=== PATIENT | male | born 1980 | race Caucasian/White ===

== ENCOUNTER 2017-12-20 15:32 | Inpatient (IN) | payer BC, OTHER ==
--- OUTSIDE RECORDS SUMMARY | 2017-12-20 15:35 | XMS REPORT | Clinical Summary ---
:1980 Author Organization [facility] Address [address] [place] [address] Care Team Providers Name Role Phone Anitra Estrada [facility] CASING TIER-C Primary Care Provider Allergies Active Allergy Reactions Severity Noted Date Comments Baclofen 01/14/2016 Cephalosporins Anaphylaxis High 01/14/2016 Meperidine 01/14/2016 Hydromorphone 01/14/2016 Levofloxacin 01/14/2016 Morphine 01/14/2016 Promethazine 01/14/2016 Current Medications Prescription Sig. Disp. Refills Start Date End Date Status rosuvastatin Take 20 mg by Active (CRESTOR) 20 MG mouth daily. tablet lamoTRIgine Take 100 mg by Active (LaMICtal) 100 MG mouth daily. tablet escitalopram Take 20 mg by Active (LEXAPRO) 20 MG mouth daily. tablet zolpidem (AMBIEN) 10 Take 10 mg by Active mg tablet mouth nightly as needed for sleep. amLODIPine (NORVASC) Take 10 mg by Active 10 mg tablet mouth daily. pregabalin (LYRICA) Take 200 mg by Active 200 MG capsule mouth 3 (three) times a day. DOMPERIDONE, BULK, 1 tablet 3 Active MISC (three) times a day. febuxostat (ULORIC) Take 1 tablet 30 tablet 11 09/03/2017 Active 40 mg (40 mg total) 9 tabletIndications: by mouth Polyarticular gout, daily. Other secondary osteoarthritis of both feet, Renal insufficiency, Hyperuricemia oseltamivir (TAMIFLU) TAKE ONE 0 09/10/2017 Active 75 MG capsule CAPSULE BY MOUTH EVERY 12 HOURS FOR 5 DAYS zolpidem (AMBIEN) 10 Take 10 mg by 05/19/201 Discontinued mg tablet mouth nightly 7 as needed for sleep. loratadine (CLARITIN) Take 10 mg by Discontinued 10 mg tablet mouth nightly. 7 coenzyme Q10 100 mg Take 200 mg by Discontinued capsule mouth daily. 7 lamoTRIgine Take 100 mg by Discontinued (LaMICtal) 100 MG mouth nightly. 7 tablet escitalopram Take 20 mg by Discontinued (LEXAPRO) 20 MG mouth nightly. 7 tablet pregabalin (LYRICA) Take 150 mg by Discontinued 150 MG capsule mouth daily. 7 magnesium oxide Take 400 mg by Discontinued (MAG-OX) 400 mg mouth daily. 7 tablet omeprazole (PriLOSEC) Take 20 mg by Discontinued 20 MG capsule mouth daily. 7 simvastatin (ZOCOR) Take 20 mg by Discontinued 20 MG tablet mouth nightly. 7 fenofibrate 145 MG Take 145 mg by Discontinued tablet mouth nightly. 7 traMADol (ULTRAM) 50 Take 50 mg by Discontinued mg tablet mouth every 6 7 (six) hours as needed for moderate pain. diphenhydrAMINE Take 25 mg by Discontinued (BENADRYL) 25 mg mouth every 6 7 capsule (six) hours as needed for itching. diclofenac (VOLTAREN) Apply 2 g Discontinued 1 % gel topically 4 7 (four) times a day as needed. phenol 1.4 % Take 2 sprays Discontinued aerosol,spray by mouth every 7 4 (four) hours as needed. pancrelipase, Take 72,000 Discontinued qsuamk-exvbbisz-sodni units of 7 se, (CREON) lipase by 24,000-76,000 mouth 4 (four) -120,000 unit times a day. capsule,delayed release(DR/EC) capsule pregabalin (LYRICA) Take 300 mg by Discontinued 300 MG capsule mouth nightly. 7 sennosides-docusate Take 1 tablet Discontinued sodium (SENOKOT-S) by mouth 7 8.6-50 mg per tablet daily. acetaminophen Take 2 tablets 20 tablet 0 05/09/2016 Discontinued (TYLENOL) 325 MG (650 mg total) 7 tablet by mouth every 6 (six) hours as needed for moderate pain for up to 20 doses. amoxicillin-pot Take 1 tablet 0 06/21/2016 Discontinued clavulanate by mouth every 7 (AUGMENTIN) 875-125 12 (twelve) mg per tablet hours. amLODIPine (NORVASC) Take 10 mg by Discontinued 10 MG tablet mouth daily. 7 febuxostat (ULORIC) Take 40 mg by Discontinued 40 mg tablet mouth daily. 7 amitriptyline Take 0.5 15 tablet 0 01/05/2017 (ELAVIL) 25 MG tablet tablets (12.5 7 mg total) by mouth nightly for 30 days. febuxostat (ULORIC) Take 1 tablet 30 tablet 2 02/05/2017 40 mg (40 mg total) 7 tabletIndications: by mouth daily Hyperuricemia, Acute for 90 days. gout of multiple sites, unspecified cause febuxostat (ULORIC) Take 40 mg by Discontinued 40 mg tablet mouth daily. 7 febuxostat (ULORIC) Take 1 tablet 30 tablet 3 05/09/2017 Discontinued 40 mg tablet (40 mg total) 8 by mouth daily. Active Problems Problem Noted Date Abdominal pain, generalized 12/29/2016 Generalized abdominal pain 12/26/2016 Overview: Added automatically from request for surgery [id number] Polyarticular gout 06/29/2016 Hyperuricemia 06/29/2016 Renal insufficiency 06/29/2016 Recurrent pancreatitis 06/29/2016 Osteoarthritis of both feet 06/29/2016 Lumbar disc disease 06/29/2016 Abnormal SPEP 06/29/2016 Gout attack 05/09/2016 Acute pancreatitis 04/27/2016 Pancreatitis 01/20/2016 Last Assessment & Plan: He has had recurrent episodes since his childhood. He has positive mutations of the CFTR and SPINK1. No EtOH use, he is s/p cholecystectomy, no hypertriglyceridemia or hypercalcemia. MRI with no anatomic abnormalities or divisum, no PD irregularity. CT with no pancreatic calcifications, fluid collections, or atrophy. No suspicious medications. No evidence of chronic pancreatitis clinically or on imaging. Igg4 normal. He has no family members for counseling. Abdominal pain 01/15/2016 Encounters Date Type Specialty Care Team Description 12/11/2017 Office Visit Ophthalmology Ras Marr, Multiple myeloma, remission status unspecified (Primary Dx); Unspecified visual field defects 12/11/2017 Orders Only Ophthalmology Ras Marr MD 12/05/2017 Office Visit Gastroenterology Harriet, Gastroparesis (Primary Dx); DO Josette Incontinence of feces, unspecified fecal incontinence type 10/11/2017 Hospital Encounter Radiology Ras Marr, Unspecified visual field defects; Multiple myeloma, remission status unspecified; Diplopia; Exophthalmos 10/02/2017 Hospital Encounter Radiology Ras Marr MD 10/02/2017 Hospital Encounter Radiology Ras Marr MD 10/02/2017 Hospital Encounter Radiology Ras Marr MD 10/02/2017 Procedure Pass Radiology 10/02/2017 Procedure Pass Radiology 10/02/2017 Procedure Pass Radiology 10/02/2017 Ancillary Orders Radiology Ras Marr MD 09/27/2017 Lab Lab Ras Marr, Unspecified visual field defects; Multiple myeloma, remission status unspecified; Diplopia; Exophthalmos 09/27/2017 Office Visit Ophthalmology Ras Marr, Unspecified visual field defects (Primary Dx); Multiple myeloma, remission status unspecified; Diplopia; Exophthalmos; Partial optic atrophy of both eyes; Altitudinal hemianopia of left eye; Arcuate scotoma of both eyes 09/27/2017 Procedure Pass Radiology 09/27/2017 Documentation Ophthalmology Clara Stephens MD 09/19/2017 Office Visit Gastroenterology Harriet, Gastroparesis (Primary Dx); DO Josette Incontinence of feces, unspecified fecal incontinence type 09/03/2017 Office Visit Rheumatology Elba Parekh, Polyarticular gout ( Primary Dx); Other secondary osteoarthritis of both feet; Renal insufficiency; Hyperuricemia 09/02/2017 Refill Rheumatology Elba Parekh MD 06/13/2017 Office Visit Gastroenterology Harriet, Gastroparesis Josette, DO (Primary Dx) 05/09/2017 Office Visit Gastroenterology Harriet, Generalized abdominal pain (Primary Dx); DO Josette Gastroparesis; Other chronic pancreatitis; Constipation, unspecified constipation type 05/09/2017 Refill Rheumatology Lacey Salazar MA 02/05/2017 Orders Only Rheumatology Elba Parekh, Hyperuricemia (Primary Dx ); Acute gout of multiple sites, unspecified cause 01/18/2017 Telephone Gastroenterology Shala Morales, EMRE 01/01/2017 Procedure Pass Gastroenterology 01/01/2017 Procedure Pass Gastroenterology 12/31/2016 Orders Only Radiology Xander Aritaa 12/26/2016 Hospital Encounter General Internal Briana Elliott Abdominal pain, generalized (Primary Dx); - Medicine MD [facility] Generalized abdominal pain 01/05/2017 Demetrice Allred MD Patel, Amitkumar Natvarlal, MD 12/26/2016 Telephone Gastroenterology Shala Morales, RN after 12/19/2016 Social History Tobacco Use Types Packs/Day Years Used Date Never Smoker Smokeless Tobacco: Never Used Alcohol Use Drinks/Week oz/Week Comments No Sex Assigned at Date Recorded Not on file Last Filed Vital Signs Vital Sign Reading Time Taken Blood Pressure 86/55 12/05/2017 1:14 PM CDT Pulse 73 12/05/2017 1:14 PM CDT Temperature 37.2 C (98.9 F) 09/03/2017 4:37 PM [employer] Respiratory Rate 17 01/05/2017 11:41 AM CDT Oxygen Saturation 94% 09/03/2017 4:37 PM [employer] Inhaled Oxygen Concentration - - Weight 97.5 kg (215 lb) 12/11/2017 7:50 AM CDT Height 162.6 cm (5' 4") 12/11/2017 7:50 AM CDT Body Mass Index 36.9 12/11/2017 7:50 AM CDT Plan of Treatment Date Type Specialty Care Team Description 03/14/2018 Office Visit Ophthalmology Ras Marr MD [address] [facility] [address] [place] [address] 04/26/2018 Office Visit Rheumatology Elba Parekh MD [address] [facility] [address] [place] [address] 06/05/2018 Office Visit Gastroenterology Josette Larios DO [address] [facility] [address] [place] [address] [phone] Health Maintenance Due Date Last Done Comments INFLUENZA VACCINE 03/20/2018 Procedures Procedure Name Priority Date/Time Associated Diagnosis Comments AUTOMATED VISUAL Routine 12/11/2017 8:45 AM Multiple myeloma, Results for this FIELD, EXTENDED - CDT remission status procedure are in OU - BOTH EYES unspecified the results section. OCT, OPTIC NERVE - Routine 12/11/2017 8:45 AM Multiple myeloma, OU - BOTH EYES CDT remission status unspecified OCT, OPTIC NERVE - Routine 09/27/2017 8:19 AM Unspecified visual Results for this OU - BOTH EYES [employer] field defects procedure are in Multiple myeloma, the results remission status section. 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 The analytical performance characteristics of this test have been determined by [facility]. This test should not be used for diagnosis without confirmation by other medically established means. Specimen Performing Laboratory [facility] Narrative FASTING: UNKNOWN Automated Visual Field, Extended - OU (12/11/2017 8:45 AM) Narrative Right Eye Threshold was 24-2. Strategy was RISA. Left Eye Threshold was 24-2. OCT, Optic Nerve - OU (12/11/2017 8:45 AM)MRI Brain & Orbit W Wo Contrast ( 10/11/2017 2:20 PM) Specimen Performing Laboratory [address] [address] Narrative EXAMINATION: MRI BRAIN & ORBIT W WO CONTRAST CLINICAL HISTORY: H53.40 Unspecified visual field defects, C90.00 Multiple myeloma not having achieved remission, bilateral exotropia. Anisocoria acute onset. Focus on orbit and EOMs COMPARISON:MRI brain 08/21/2017 TECHNIQUE: Multiplanar and multisequence MRI imaging of the brain and orbits was obtained with and without contrast. FINDINGS: MRI BRAIN: No evidence of acute intracranial hemorrhage, mass, mass effect, acute infarct or midline shift. Ventricles and sulci are normal in appearance for patient's age. Minimal scattered white matter FLAIR signal hyperintensities, commonly representing chronic microvascular ischemic change. No abnormal intracranial enhancement. Basal cisterns are clear. Major intracranial flow voids are maintained. Mild scattered paranasal sinus mucosal thickening. Sagittal T1 images shows no midline mass lesion. The craniocervical junction is intact. MRI ORBITS: High resolution images of the orbits demonstrate exophthalmus bilaterally. No orbital mass. No abnormal signal of the optic chiasm or prechiasmatic optic nerves and no abnormal enhancement. The globes are normal in appearance. Extraocular muscles are normal in appearance. IMPRESSION: 1. No acute intracranial abnormality. 2. Bilateral exophthalmus. Otherwise unremarkable appearance of the orbits. [id number] Procedure Note Hm Interface, Radiology Results Incoming - 10/11/2017 2:51 PM BUSINESS [employer]IT [employer] EXAMINATION: MRI BRAIN & ORBIT W WO CONTRAST CLINICAL HISTORY: H53.40 Unspecified visual field defects, C90.00 Multiple myeloma not having achieved remission, bilateral exotropia. Anisocoria acute onset. Focus on orbit and EOMs COMPARISON: MRI brain 08/21/2017 TECHNIQUE: Multiplanar and multisequence MRI imaging of the brain and orbits was obtained with and without contrast. FINDINGS: MRI BRAIN: No evidence of acute intracranial hemorrhage, mass, mass effect, acute infarct or midline shift. Ventricles and sulci are normal in appearance for patient's age. Minimal scattered white matter FLAIR signal hyperintensities, commonly representing chronic microvascular ischemic change. No abnormal intracranial enhancement. Basal cisterns are clear. Major intracranial flow voids are maintained. Mild scattered paranasal sinus mucosal thickening. Sagittal T1 images shows no midline mass lesion. The craniocervical junction is intact. MRI ORBITS: High resolution images of the orbits demonstrate exophthalmus bilaterally. No orbital mass. No abnormal signal of the optic chiasm or prechiasmatic optic nerves and no abnormal enhancement. The globes are normal in appearance. Extraocular muscles are normal in appearance. IMPRESSION: 1. No acute intracranial abnormality. 2. Bilateral exophthalmus. Otherwise unremarkable appearance of the orbits. [id number] Thyroperoxidase antibody (09/27/2017 9:18 AM) Component Value Ref Range Thyroperoxidase Ab <1 <9 IU/mL Specimen Performing Laboratory [facility] Acetylcholine receptor blocking Ab (09/27/2017 9:18 AM) Component Value Ref Range Acetylcholine receptor blocking Ab <15 <15 % of inhibition Specimen Performing Laboratory [facility] Acetylcholine receptor modulating Ab (09/27/2017 9:18 AM) Component Value Ref Range Acetylcholine receptor modulating <1 % binding inhib Ab Comment: Reference Range: < 32% BINDING INHIBITION This test was developed and its analytical performance characteristics have been determined by [facility]. It has not been cleared or approved by FDA. This assay has been validated pursuant to the CLIA regulations and is used for clinical purposes. Specimen Performing Laboratory [facility] Acetylcholine receptor binding Ab (09/27/2017 9:18 AM) Component Value Ref Range Acetylcholine receptor binding Ab <0.30 nmol/L Comment: Reference Ranges for Acetylcholine Receptor Binding Antibody: Negative: < or=0.30 nmol/L Equivocal:0.31-0.49 nmol/L Positive: > or=0.50 nmol/L Specimen Performing Laboratory [facility] Thyroid stimulating immunoglobulin (09/27/2017 9:18 AM) Component Value Ref Range Thyroid stimulating immunoglobulin <89 <140 % baseline Comment: Thyroid stimulating immunoglobulins (TSI) can engage the TSH receptors resulting in hyperthyroidism in Graves' disease patients. TSI levels can be useful in monitoring the clinical outcome of Graves' disease as well as assessing the potential for hyperthyroidism from maternal- transfer. TSI results greater than or equal to (>=) 140% of the Reference Control are considered positive. NOTE: A serum TSH level greater than 350 micro-International Units/mL can interfere with the TSI bioassay and potentially give false positive results. Patients who are and are suspected of having hyperthyroidism should have both a TSI and human Chorionic Gonadotropin (hCG) tests measured. A serum hCG level greater than 40,625 mIU/mL can interfere with the TSI bioassay and may give false negative results. In these patients it is recommended that a second TSI is obtained when the hCG concentration falls below 40,625 mIU/mL (usually after approximately 20-weeks gestation). Specimen Performing Laboratory [facility] BUN level (09/27/2017 9:18 AM) Component Value Ref Range BUN, whole blood 25 7 - 25 mg/dL Specimen Performing Laboratory [facility] T3, free (09/27/2017 9:18 AM) Component Value Ref Range T3, free 3.7 2.3 - 4.2 pg/mL Specimen Performing Laboratory [facility] Thyroid stimulating hormone (09/27/2017 9:18 AM) Component Value Ref Range TSH 2.83 0.40 - 4.50 mIU/L Specimen Performing Laboratory [facility] T4, free (09/27/2017 9:18 AM) Component Value Ref Range T4, free 1.5 0.8 - 1.8 ng/dL Specimen Performing Laboratory [facility] Creatinine level (09/27/2017 9:18 AM) Component Value Ref Range Creatinine 1.11 0.60 - 1.35 mg/dL EGFR Non-Afr. Niuean 84 > OR=60 mL/min/1.73m2 EGFR 98 > OR=60 mL/min/1.73m2 Specimen Performing Laboratory [facility] OCT, Optic Nerve - OU (09/27/2017 8:19 AM) Narrative Right Eye Reliability was good. Temporal thickness was normal. Superior thickness was normal. Nasal thickness was normal. Inferior thickness was normal. Left Eye Reliability was good. Temporal thickness was normal. Superior thickness was normal. Nasal thickness was normal. Inferior thickness was normal. Notes G 79 G 74 Automated Visual Field, Extended - OU (09/27/2017 8:19 AM) Narrative Right Eye Threshold was 24-2. Strategy was RISA. Reliability was good. -8.09. Findings include superior arcuate defect. Left Eye Threshold was 24-2. Strategy was RISA. Reliability was good. -13.21. Findings include superior altitudinal defect, inferior arcuate defect. Uric acid level (09/19/2017 11:15 AM) Component Value Ref Range Uric acid 5.3 4.0 - 8.0 mg/dL Comment: Therapeutic target for gout patients: <6.0 mg/dL Specimen Performing Laboratory [facility] Narrative FASTING:YES FASTING: YES Comprehensive metabolic panel (09/19/2017 11:15 AM)Only the most recent of3 resultswithin the time period is included. Component Value Ref Range Glucose 82 65 - 99 mg/dL Comment: Fasting reference interval BUN, whole blood 27 (H) 7 - 25 mg/dL Creatinine 1.41 (H) 0.60 - 1.35 mg/dL EGFR Non-Afr. Niuean 63 > OR=60 mL/min/1.73m2 EGFR 73 > OR=60 mL/min/1.73m2 BUN/creatinine ratio 19 6 - 22 (calc) Sodium 138 135 - 146 mmol/L Potassium 4.8 3.5 - 5.3 mmol/L Chloride 99 98 - 110 mmol/L CO2 33 (H) 20 - 31 mmol/L Calcium 10.1 8.6 - 10.3 mg/dL Protein 7.6 6.1 - 8.1 g/dL Albumin, S 4.4 3.6 - 5.1 g/dL Globulin, total 3.2 1.9 - 3.7 g/dL (calc) Albumin/globulin ratio 1.4 1.0 - 2.5 (calc) Total bilirubin 0.5 0.2 - 1.2 mg/dL Alkaline phosphatase 70 40 - 115 U/L AST 28 10 - 40 U/L ALT 40 9 - 46 U/L Specimen Performing Laboratory [facility] Narrative FASTING:YES FASTING: YES MRI Head External Study (08/21/2017 7:31 PM)Only the most recent of3 resultswithin the time period is included. Specimen Performing Laboratory [facility] [address] [place] [id number] Narrative This exam was not acquired at a Religious facility and has not been interpreted by a Religious Provider.The exam was imported into our imaging system for comparisons purposes. XR Abdomen 1 Vw (01/04/2017 11:34 AM)Only the most recent of2 resultswithin the time period is included. Specimen Performing Laboratory [facility] [address] [place] [address] Narrative EXAMINATION:XR ABDOMEN 1 VW CLINICAL HISTORY:Bowel ileus COMPARISON:Abdominal radiograph 12/31/2016. IMPRESSION:Interval improvement of gaseous distention of small bowel loops. There is mild continued gaseous distention of the transverse colon. No evidence of pneumoperitoneum. The lung bases have stable interstitial opacities. Patient has mild scoliotic deformity of the lumbar spine. [id number] Procedure Note Interface, Radiology Results Incoming - 01/04/2017 12:04 PM CDT EXAMINATION: XR ABDOMEN 1 VW CLINICAL HISTORY: Bowel ileus COMPARISON: Abdominal radiograph 12/31/2016. IMPRESSION: Interval improvement of gaseous distention of small bowel loops. There is mild continued gaseous distention of the transverse colon. No evidence of pneumoperitoneum. The lung bases have stable interstitial opacities. Patient has mild scoliotic deformity of the lumbar spine. [id number] Salmonella/shigella culture (01/03/2017 2:39 PM) Component Value Ref Range Salmonella/shigella culture isolate No Aeromonas isolated Comment: Specimen Information Specimen Source: Stool Specimen Site: Nonpreserved Specimen Performing Laboratory [facility] [address] [place] [address] Gastrointestinal panel (01/03/2017 2:39 PM) Component Value Ref Range Gastrointestinal panel Negative for all pathogens tested: Negative for Salmonella Negative for Campylobacter Negative for Diarrheagenic E coli/Shigella Negative for Shiga-like toxin-producing E coli Negative for Plesiomonas shigelloides Negative for Yersinia enterocolitica Negative for Vibrio species Negative for Clostridium difficile (Toxin A/B) Negative for Cryptosporidium Negative for Giardia lamblia Negative for Cyclospora cayeteanensis Negative for Entamoeba histolytica Negative for Adenovirus F 40/41 Negative for Astrovirus Negative for Norovirus GI/GII Negative for Rotavirus A Negative for Sapovirus Negative for Clostridium difficile toxin Negative for E coli 0157 This real-time PCR assay detects the presence of nucleic acids (RNA or DNA) for the gastrointestinal pathogens listed. A result of "Not-detected" does not exclude the possibility of the presence of one or more pathogens at concentrations less than the detectable limits of the assay. Comment: Specimen Information Specimen Source: Stool Specimen Site: Nonpreserved Specimen Performing Laboratory [facility] [address] [place] [id number] NM Gastric Emptying (01/03/2017 12:30 PM) Specimen Performing Laboratory [facility] [address] [place] [id number] Narrative Procedure:NM GASTRIC EMPTYING Clinical History:Nausea vomiting Technique: 0.8 millicuries of [id number] colloid were mixed with an egg and cooked. The egg was fed to the patient and dynamic imaging of the abdomen in the anterior and posterior projections was performed for 90 minutes. Quantification of gastric emptying was performed using the geometric mean of the anterior and posterior projections. Delayed imaging at 4 hours was also performed. Findings: 1st 90 minutes (supine position):Gastric emptying half kfhb=517 minutes ( normal is <100 minutes). 4 hour delayed imaging:Gastric retention=40% (normal is <10%) Impression: Markedly delayed gastric emptying. [id number] Procedure Note Interface, Radiology Results Incoming - 01/03/2017 4:28 PM CDT Procedure: NM GASTRIC EMPTYING Clinical History: Nausea vomiting Technique: 0.8 millicuries of [id number] colloid were mixed with an egg and cooked. The egg was fed to the patient and dynamic imaging of the abdomen in the anterior and posterior projections was performed for 90 minutes. Quantification of gastric emptying was performed using the geometric mean of the anterior and posterior projections. Delayed imaging at 4 hours was also performed. Findings: 1st 90 minutes (supine position): Gastric emptying half bcmj=914 minutes ( normal is <100 minutes). 4 hour delayed imaging: Gastric retention=40% (normal is <10%) Impression: Markedly delayed gastric emptying. [id number] CBC with platelet and differential (01/03/2017 5:45 AM)Only the most recent of6 resultswithin the time period is included. Component Value Ref Range WBC 4.38 (L) 4.50 - 11.00 k/uL RBC 4.98 4.40 - 6.00 m/uL HGB 14.2 14.0 - 18.0 g/dL HCT 45.8 41.0 - 51.0 % MCV 92.0 82.0 - 100.0 fL MCH 28.5 27.0 - 34.0 pg MCHC 31.0 31.0 - 37.0 g/dL RDW - SD 46.8 37.0 - 55.0 fL MPV 11.7 8.8 - 13.2 fL Platelet count 239 150 - 400 k/uL Nucleated RBC 0.00 /100 WBC Neutrophils 40.5 39.0 - 69.0 % Lymphocytes 43.2 25.0 - 45.0 % Monocytes 8.4 0.0 - 10.0 % Eosinophils 6.6 (H) 0.0 - 5.0 % Basophils 1.1 (H) 0.0 - 1.0 % Immature granulocytes 0.2Comment: "Immature granulocytes" 0.0 - 1.0 % (promyelocytes, myelocytes, metamyelocytes) Specimen Performing Laboratory [facility] DEPARTMENT OF PATHOLOGY AND GENOMIC MEDICINE [address] [place] [id number] Estimated GFR (01/03/2017 4:00 AM)Only the most recent of7 resultswithin the time period is included. Component Value Ref Range GFR Non Af Amer 57 (A) mL/min/1.73 m2 GFR Af Amer 69 mL/min/1.73 m2 Comment: Chronic kidney disease: <60 mL/min/1.73m2 Kidney failure: <15 mL/min/1.73m2 The estimated GFR is calculated from the IDMS-traceable Modification of Diet in Renal Disease Equation. The accuracy of the calculation is poor when the creatinine is normal. Calculated values >90 mL/min/1.73m2 are not reported. This equation has not been validated in children (<18 years), women, the elderly (>70 years), or ethnic groups other than Caucasians and Americans. Specimen Performing Laboratory Plasma specimen [facility] OF [facility] AND [facility] [address] [place] [id number] Magnesium level (01/03/2017 4:00 AM)Only the most recent of2 resultswithin the time period is included. Component Value Ref Range Magnesium 1.6 1.6 - 2.6 mg/dL Specimen Performing Laboratory Plasma specimen [facility] AND [facility] [address] [place] [phone] Basic metabolic panel (01/03/2017 4:00 AM)Only the most recent of5 resultswithin the time period is included. Component Value Ref Range Sodium 141 135 - 148 mEq/L Potassium 4.2 3.5 - 5.0 mEq/L Chloride 102 98 - 112 mEq/L CO2 24 24 - 31 mEq/L Anion gap 15 7 - 15 mEq/L Comment: Starting from November , anion gap calculation no longer incorporates potassium. Please note the change. BUN 6 6 - 20 mg/dL Creatinine 1.4 (H) 0.7 - 1.2 mg/dL Glucose 68 65 - 99 mg/dL Calcium 9.1 8.3 - 10.2 mg/dL Specimen Performing Laboratory Plasma specimen [facility] AND [facility] [address] [place] [address] Potassium level (01/02/2017 9:48 AM)Only the most recent of2 resultswithin the time period is included. Component Value Ref Range Potassium 4.3 3.5 - 5.0 mEq/L Specimen Performing Laboratory Plasma specimen [facility] PATHOLOG[facility] AND [facility] [address] [place] [address] Lipase level (12/29/2016 12:41 AM)Only the most recent of3 resultswithin the time period is included. Component Value Ref Range Lipase 28 13 - 60 U/L Specimen Performing Laboratory Plasma specimen [facility] AND [facility] [address] [place] [address] Amylase level (12/29/2016 12:41 AM)Only the most recent of3 resultswithin the time period is included. Component Value Ref Range Amylase 27 13 - 73 U/L Specimen Performing Laboratory Plasma specimen [facility] DEPARTMENT OF PATHOLOGY AND [address] [address] US Abdominal Doppler (12/28/2016 8:00 PM) Specimen Performing Laboratory [facility] [address] [place] [address] Narrative EXAMINATION:US ABDOMINAL DOPPLER CLINICAL HISTORY:Abdominal Pain with Cramps COMPARISON:None. TECHNIQUE: Glover scale, color Doppler and spectral waveform analysis of the hepatic and upper abdominal vasculature. IMPRESSION: PORTAL VEIN:Main portal vein measures 11 mm, with velocity of 13 cm/sec. Main, right, and left portal veins are patent with hepatopetal flow. HEPATIC VEINS:The middle, right and left hepatic veins are patent and demonstrate acceptable waveforms. HEPATIC ARTERIES:The proper, right, and left hepatic arteries are identified with appropriate waveforms. INFERIOR VENA CAVA: Patent. SUPERIOR MESENTERIC VEIN: Patent. SPLENIC ARTERY AND VEIN:Splenic artery and vein are identified and are patent. [id number] Procedure Note Interface, Radiology Results Incoming - 12/28/2016 8:56 PM CDT EXAMINATION: US ABDOMINAL DOPPLER CLINICAL HISTORY: Abdominal Pain with Cramps COMPARISON: None. TECHNIQUE: Glover scale, color Doppler and spectral waveform analysis of the hepatic and upper abdominal vasculature. IMPRESSION: PORTAL VEIN: Main portal vein measures 11 mm, with velocity of 13 cm/sec. Main, right, and left portal veins are patent with hepatopetal flow. HEPATIC VEINS: The middle, right and left hepatic veins are patent and demonstrate acceptable waveforms. HEPATIC ARTERIES: The proper, right, and left hepatic arteries are identified with appropriate waveforms. INFERIOR VENA CAVA: Patent. SUPERIOR MESENTERIC VEIN: Patent. SPLENIC ARTERY AND VEIN: Splenic artery and vein are identified and are patent. [id number] US Abdomen Complete (12/28/2016 7:20 PM) Specimen Performing Laboratory [facility] [address] [place] [id number] Narrative EXAM: US ABDOMEN COMPLETE CLINICAL DATA:ABDOMINAL PAIN COMPARISON: CT abdomen December 26, 2016 FINDINGS: A complete abdominal ultrasound was performed. LIVER: The liver is echogenic from steatosis without focal lesions or signs of intrahepatic biliary dilation. GALBLADDER/CBD:The gallbladder is absent. The common bile duct is normal in diameter at 4.9 mm PORTAL VEIN: .The main portal vein is patent with color Doppler flow. RETROPERITONEUM:The visualized pancreas, abdominal aorta, and IVC are unremarkable SPLEEN: The spleen is normal. KIDNEYS:The kidneys are normal in size and echogenicity without stones or hydronephrosis. OTHER: There is no ascites. There is no pleural effusion. IMPRESSION: No acute sonographic abnormality. [id number] Procedure Note [facility], Radiology Results Incoming - 12/29/2016 12:42 AM CDT EXAM: US ABDOMEN COMPLETE CLINICAL DATA: ABDOMINAL PAIN COMPARISON: CT abdomen December 26, 2016 FINDINGS: A complete abdominal ultrasound was performed. LIVER: The liver is echogenic from steatosis without focal lesions or signs of intrahepatic biliary dilation. GALBLADDER/CBD: The gallbladder is absent. The common bile duct is normal in diameter at 4.9 mm PORTAL VEIN: .The main portal vein is patent with color Doppler flow. RETROPERITONEUM: The visualized pancreas, abdominal aorta, and IVC are unremarkable SPLEEN: The spleen is normal. KIDNEYS: The kidneys are normal in size and echogenicity without stones or hydronephrosis. OTHER: There is no ascites. There is no pleural effusion. IMPRESSION: No acute sonographic abnormality. [id number] C difficile toxin (12/27/2016 3:47 PM) Component Value Ref Range Clostridium difficile toxin No Clostridium difficle toxin present Comment: Specimen Information Specimen Source: Stool Specimen Site: Nonpreserved Specimen Performing Laboratory Stool - Nonpreserved [facility] [address] [place] [id number] POC glucose (12/27/2016 7:25 AM) Component Value Ref Range POC glucose 122 (H) 65 - 99 mg/dL Comment: [facility] Notified RN Meter ID: [id number] Scaffolder: Michael Chaney Specimen Performing Laboratory [facility] [address] [place] [id number] Urinalysis screen and microscopy, with reflex to culture (12/26/2016 5:48 PM) Component Value Ref Range Specimen site Random void Color, UA Yellow Appearance, UA Clear Specific gravity, UA 1.015 1.001 - 1.035 pH, UA 7.0 5.0 - 8.5 Protein, UA Negative Negative Glucose, UA Negative Negative Ketones, UA Negative Negative Bilirubin, UA Negative Negative Blood, UA Negative Negative Nitrite, UA Negative Negative Urobilinogen, UA <2.0 <2.0 Leukocyte esterase, UA Negative Negative Epithelial cells, UA <1 /HPF WBC, UA None seen 0 - 1 /HPF RBC, UA <1 0 - 1 /HPF Bacteria, UA None seen None seen Yeast, UA None seen Yeast with pseudohyphae, UA None seen Specimen Performing Laboratory Urine [facility] OF PATHOLOGY AND GENOMIC MEDICINE, [place] [address] [facility]. [address] [place] [address] Urine culture (12/26/2016 5:48 PM) Component Value Ref Range Urine culture SEE COMMENTComment: Bacteriuria screen negative. Specimen Performing Laboratory [facility] [address] [place] [id number] Abdomen Pelvis Wo Contrast (12/26/2016 5:35 PM) Specimen Performing Laboratory [facility] [address] [place] [address] Narrative EXAMINATION:CT ABDOMEN PELVIS WO CONTRAST CLINICAL HISTORY:generalized abdominal painn v since yesterday Hx pancreatitisdiverticulitsbowel resectionCKDlast crea Jun 2016 -- 48 TECHNIQUE:Multiple axial CT images of the abdomen and pelvis are obtained without the use of intravenous contrast. Coronal and sagittal 3-D reconstructions are obtained. CT scans are performed using radiation dose reduction techniques. Technical factors are evaluated and adjusted to ensure appropriate moderation of exposure.Automated dose management technology is applied to adjust radiation exposure while achieving a diagnostic quality image. COMPARISON:05/02/2016 FINDINGS: Abdomen: The evaluation of the solid organs is limited without the use of intravenous contrast. The visualized lower lung zones demonstrates dependent atelectasis at the lower lung bases. The gallbladder is not identified. The liver has a fatty appearance. There are no liver masses present.. The CT appearance of thespleen, pancreas and adrenal glands is unremarkable . The abdominal aorta has no aneurysmal dilatation. There is no retroperitoneal adenopathy. The kidneys do not have any stones or hydronephrosis. CT Pelvis: Stomach does not demonstrate any wall thickening. There is no evidence of any bowel obstruction nor any dilated loops of bowel. Extensive colonic fecal retention is present. There is no free fluid seen within the abdomen and pelvis. The bladder does not demonstrate any masses. There is no evidence of any inguinal hernia. The appendix is not clearly identified. There is no inflammatory change seen in the right lower quadrant. Colon does not demonstrate any inflammatory change. Moderate colonic fecal retention is present. IMPRESSION: 1. The pancreas does not demonstrate any inflammatory change. There are no masses seen on the noncontrast study. 2. There is no bowel obstruction nor any dilated loops of bowel. 3. Moderate colonic fecal retention is present. 4. The abdomen and pelvis do not demonstrate any masses. [facility]-[id number] Procedure Note Hm Interface, Radiology Results Incoming - 12/26/2016 5:46 PM CDT EXAMINATION: CT ABDOMEN PELVIS WO CONTRAST CLINICAL HISTORY: generalized abdominal pain n v since yesterday Hx pancreatitis diverticulits bowel resection CKD last crea Jun 2016 -- 1 48 TECHNIQUE: Multiple axial CT images of the abdomen and pelvis are obtained without the use of intravenous contrast. Coronal and sagittal 3-D reconstructions are obtained. CT scans are performed using radiation dose reduction techniques. Technical factors are evaluated and adjusted to ensure appropriate moderation of exposure. Automated dose management technology is applied to adjust radiation exposure while achieving a diagnostic quality image. COMPARISON: 05/02/2016 FINDINGS: Abdomen: The evaluation of the solid organs is limited without the use of intravenous contrast. The visualized lower lung zones demonstrates dependent atelectasis at the lower lung bases. The gallbladder is not identified. The liver has a fatty appearance. There are no liver masses present.. The CT appearance of the spleen, pancreas and adrenal glands is unremarkable . The abdominal aorta has no aneurysmal dilatation. There is no retroperitoneal adenopathy. The kidneys do not have any stones or hydronephrosis. CT Pelvis: Stomach does not demonstrate any wall thickening. There is no evidence of any bowel obstruction nor any dilated loops of bowel. Extensive colonic fecal retention is present. There is no free fluid seen within the abdomen and pelvis. The bladder does not demonstrate any masses. There is no evidence of any inguinal hernia. The appendix is not clearly identified. There is no inflammatory change seen in the right lower quadrant. Colon does not demonstrate any inflammatory change. Moderate colonic fecal retention is present. IMPRESSION: 1. The pancreas does not demonstrate any inflammatory change. There are no masses seen on the noncontrast study. 2. There is no bowel obstruction nor any dilated loops of bowel. 3. Moderate colonic fecal retention is present. 4. The abdomen and pelvis do not demonstrate any masses. [facility]-[id number] XR Chest 1 Vw (12/26/2016 3:20 PM) Specimen Performing Laboratory [facility] [address] [place] [address] Narrative EXAMINATION:XR CHEST 1 VW CLINICAL HISTORY:workup for fever COMPARISON:May 04, 2016 IMPRESSION: 1.Feeding tube and left-sided PICC catheter have been removed. 2.There has been increase in basal volume loss since a prior study. 3.The vessels are not congested. [id number] Procedure Note Interface, Radiology Results Incoming - 12/26/2016 3:56 PM CDT EXAMINATION: XR CHEST 1 VW CLINICAL HISTORY: workup for fever COMPARISON: May 04, 2016 IMPRESSION: 1.Feeding tube and left-sided PICC catheter have been removed. 2.There has been increase in basal volume loss since a prior study. 3.The vessels are not congested. [id number] Manual differential (12/26/2016 2:55 PM) Component Value Ref Range Manual differential PERFORMED Neutrophils 58.0 39.0 - 69.0 % Lymphocytes 30.0 25.0 - 45.0 % Monocytes 7.0 0.0 - 10.0 % Eosinophils 3.0 0.0 - 5.0 % Basophils 2.0 (H) 0.0 - 1.0 % Metamyelocytes 0 % Promyelocytes 0 % Platelet slide review Dary adequate Specimen Performing Laboratory [facility] OF PATHOLOGY [facility] GENOMIC MEDICINE, [address] [place] [address] Lactic acid level (12/26/2016 2:55 PM) Component Value Ref Range Lactic acid 1.8 0.5 - 2.2 mmol/L Specimen Performing Laboratory Blood [facility] [place] [address] after 12/19/2016 Insurance Payer Benefit Plan / Group Subscriber ID Type Phone Address [employer] xxxxxxxxxxxx PPO [employer] xxxxxxxxx HMO
[2017-12-20] MEDS ORDERED: NA CHLORIDE 0.9% 2,000 ML ONE (16:17)
--- NOTE | 2017-12-20 16:47 | RAD REPORT ---
EXAM DESCRIPTION: RAD - Chest Single View - 12/20/2017 4:37 pm CLINICAL HISTORY: Fever COMPARISON: 01/12/2016 FINDINGS: Portable technique limits examination quality. The lungs are grossly clear. The heart is mildly prominent in size. No displaced fractures. IMPRESSION: No acute intrathoracic process suspected.
[2017-12-20 16:58] LABS: Absolute Monocytes 0.5 K/uL (0.1-1.3); Absolute Neutrophil 6.1 K/uL (1.8-8.0); Basophils % 0.5 % (0-1.3); Eosinophils % 0.1 % (0-4.4); Hematocrit 39.1 % (39.6-49.0); Lymphocytes % 12.9 % (15.3-44.8); MCH 27.2 pg (27.0-35.0); MCV 84.3 fL (80-100); MPV 9.6 fL (7.6-11.3); Monocytes % 6.9 % (3.3-12.3); RBC Red Blood Cell Count 4.64 M/uL (4.33-5.43)
[2017-12-20 17:09] LABS: Protime INR 1.15
[2017-12-20 17:12] LABS: Potassium 4.5 mEq/L (3.6-5.0)
[2017-12-20 17:20] LABS: Albumin 3.9 g/dL (3.2-5.5); Bilirubin Direct 0.1 mg/dL (0-0.2); Bilirubin Total 0.4 mg/dL (0.3-1.2); C-Reactive Protein 88.2 mg/L (<10.0); Protein, Total 7.8 g/dL (6.0-8.3)
--- NOTE | 2017-12-20 18:03 | RAD REPORT ---
EXAM DESCRIPTION: CT - Abdomen Pelvis W Contrast - 12/20/2017 5:48 pm CLINICAL HISTORY: Abdominal pain, fever, hypotension, history of prior bowel resection, hernia repai r and appendectomy COMPARISON: CT imaging December 2015 TECHNIQUE: Biphasic, helical CT imaging of the abdomen and pelvis was performed following 100 ml non -ionic IV contrast. Oral contrast was given. All CT scans are performed using dose optimization technique as appropriate and may include automated exposure control or mA/KV adjustment according to patient size. FINDINGS: Minimal stranding in each posterior gutter. No focal mass, consolidation or pleural effusi on. No pericardial effusion. Fat infiltration pattern of the liver is noted. No focal liver lesion. No spleen or pancreatic acute finding. Gallbladder is absent. No biliary tree dilatation. Symmetric renal function is seen with no hydronephrosis or suspicious renal mass. No pyelonephritis o r acute renal parenchymal process. No urinary bladder wall thickening or mass. No gastric dilatation or gastric wall thickening. There is no large or small bowel dilatation. Mild d iverticulosis is present without diverticulitis. No free air, free fluid or inflammatory stranding. No mass or bulky lymphadenopathy. Postsurgical changes are noted to the anterior abdominal wall. The re is atrophy of the rectus musculature in the mid and upper abdominal wall. Small nonspecific peripa ncreatic and periportal lymph nodes are present. No abnormal aortoiliac chain lymphadenopathy. No adr enal abnormality. No suspicious bony findings. IMPRESSION: No obstruction, free air or surgically emergent finding. No bowel obstruction or focal bowel process seen. A few of the small bowel loops are prominent and a nonspecific enteritis is possible. No abnormality seen as a source for fever. Fatty infiltration of the liver.
[2017-12-20] MEDS ORDERED: METRONIDAZOLE 500mg IVPB 500 MG/100 ML BAG IV ONE (18:20)
[2017-12-20] MEDS ORDERED: CLINDAMYCIN 600MG/D5W 600 MG/50 ML BAG IV ONE (18:20)
[2017-12-20] MEDS ORDERED: FENTANYL CITR 100 MCG/2 ML ONE ×2 (18:20→20:27)
[2017-12-20] MEDS ORDERED: NA CHLORIDE 0.9% 1,000 ML ONE (18:21)
[2017-12-20 19:25] LABS: Urine Blood NEGATIVE (NEG); Urine Glucose NEGATIVE (NEG); Urine Protein 1+ (NEG); Urine Specific Gravity 1.015 (1.005-1.030); Urine pH 5.5 (5.0-7.0)
--- NOTE | 2017-12-20 19:42 | ER ---
Nurse's Notes [facility] Name: Jose G Perera Age: 37 yrs Sex: Male : 1980 Arrival Date: 12/20/2017 Time: 15:36 Bed 19 Private MD: Diagnosis: Sepsis, unspecified organism;Other and unspecified noninfective gastroenteritis and colitis Presentation: 12/20 15:50 Presenting complaint: Father states: yesterday, he was running a high temp, 102, hj tylenol and ibuprofen and it went down, came from urgent care and BP- 80/40;. Transition of care: patient was not received from another setting of care. Onset of symptoms was December 20, 2017. Initial Sepsis Screen: Does the patient meet any 2 criteria? No. Patient's initial sepsis screen is negative. Does the patient have a suspected source of infection? No. Patient's initial sepsis screen is negative. Care prior to arrival: None. 15:50 Method Of Arrival: Ambulatory hj 15:50 Acuity: MANISHA 3 hj 15:50 Acuity: MANISHA 2 iw Triage Assessment: 15:53 General: Appears in no apparent distress. uncomfortable, Behavior is calm, cooperative, hj appropriate for age. Pain: Complains of pain in abdomen. Historical: - Allergies: 15:53 BACLOFEN; hj 15:53 CEPHALOSPORINS; hj 15:53 Demerol; hj 15:53 Dilaudid; hj 15:53 Levaquin; hj 15:53 Morphine; hj 22:21 Phenergan; jd3 - Home Meds: 15:53 gout metication [Active]; rosuvastatin 20 mg oral tab 1 tab once daily [Active]; Lyrica hj Oral 3 times per day [Active]; Ambien 10 mg Oral tab 1 tab once daily [Active]; Lamictal 100 mg Oral tab 1 tab once daily [Active]; Lexapro 20 mg Oral tab 1 tab once daily [Active]; - PMHx: 15:53 Hyperlipidemia; hj - PSHx: 15:53 Bowel resection; Hernia repair; Appendectomy; Hypospadius repair; Exploratory lap; hj - Immunization history:: Adult Immunizations up to date. - Social history:: Smoking status: Patient/guardian denies using tobacco, never smoked. Screenin:10 Abuse screen: Denies threats or abuse. Nutritional screening: No deficits noted. ae1 Tuberculosis screening: No symptoms or risk factors identified. Fall Risk None identified. Assessment: 18:10 Reassessment: Patient appears in no apparent distress at this time. Patient and/or ae1 family updated on plan of care and expected duration. Pain level reassessed. Patient states symptoms have improved. Pain: Complains of pain in abdomen. 19:33 Reassessment: Patient appears in no apparent distress at this time. Patient and/or jd3 family updated on plan of care and expected duration. Pain level reassessed. Patient is alert, oriented x 3, equal unlabored respirations, skin warm/dry/pink. Patient denies pain at this time. Patient states symptoms have improved. 21:30 Reassessment: Patient appears in no apparent distress at this time. Patient and/or jd3 family updated on plan of care and expected duration. Pain level reassessed. Patient is alert, oriented x 3, equal unlabored respirations, skin warm/dry/pink. 22:30 Reassessment: Patient appears in no apparent distress at this time. Patient and/or jd3 family updated on plan of care and expected duration. Pain level reassessed. Patient is alert, oriented x 3, equal unlabored respirations, skin warm/dry/pink. Vital Signs: 15:53 BP 80 / 47; Pulse 79; Resp 18; Temp 97.6(TE); Pulse Ox 96% on R/A; Weight 97.52 kg; hj Height 5 ft. 4 in. (162.56 cm); 16:51 BP 88 / 60; Pulse 74; Resp 15; Pulse Ox 96% on R/A; ae1 17:04 BP 106 / 62; Pulse 77; Resp 14; Temp 98.2(O); Pulse Ox 97% on R/A; ae1 18:08 BP 111 / 68; Pulse 82; Resp 12; Pulse Ox 96% on R/A; ae1 18:34 BP 114 / 65; Pulse 82; Resp 12; Temp 98.2(O); Pulse Ox 89% on R/A; ae1 19:01 BP 107 / 71; Pulse 79; Resp 12; Pulse Ox 99% on R/A; ae1 19:32 BP 111 / 69; Pulse 80; Resp 10; Pulse Ox 99% on 2 lpm NC; Pain 0/10; jd3 20:22 BP 114 / 74; Pulse 81; Resp 12 S; Temp 99.1(O); Pulse Ox 97% on 2 lpm NC; Pain 7/10; jd3 22:10 BP 128 / 76; Pulse 92; Resp 18 S; Pulse Ox 96% on 2 lpm NC; jd3 23:00 BP 113 / 77; Pulse 87; Resp 14 S; Pulse Ox 96% on 2 lpm NC; Pain 3/10; jd3 15:53 Body Mass Index 36.90 (97.52 kg, 162.56 cm) hj 18:34 Nasal cannula applied at 2 liters, O2 saturation up to 96% ae1 ED Course: 15:36 Patient arrived in ED. mr 15:51 Triage completed. hj 15:53 Arm band placed on right wrist. hj 15:56 Jorge Eugene, EMRE is Primary Nurse. ae1 15:57 [facility]C [facility] snw 15:57 Michele Gregorio MD is Attending Physician. snw 16:10 Radiology exam delayed due to lab results not completed at this time. (BUN/Creatinine). vr 16:20 Missed attempt(s): 20 gauge in left antecubital area. Bleeding controlled, band aid dh3 applied, catheter tip intact. 16:37 Chest Single View XRAY In Process Unspecified. EDMS 16:38 Radiology exam delayed due to lab results not completed at this time. (BUN/Creatinine). vr 16:52 Placed in gown. Bed in low position. Call light in reach. Side rails up X2. Adult w/ ae1 patient. lunchroom monitor on. Pulse ox on. NIBP on. Warm blanket given. Patient placed in Trendelenburg position. 17:06 Straight cath inserted, using sterile technique, Specimen obtained. 15 FR Returned Foul ae1 odor. Patient tolerated well. Inserted saline lock: 22 gauge in right forearm, using aseptic technique. Blood collected. Missed attempt(s): 20 gauge in right upper arm. Blood collected.. 17:[address] via stretcher. ae1 17:48 CT Abd/Pelvis - W/Contrast In Process Unspecified. EDMS 18:04 EKG done, by environmental services tech. reviewed by Stephanie DELGADO. at1 18:10 Patient moved back from CT. ae1 19:38 Sruthi Sanchez MD is Hospitalizing Provider. snw 20:51 Primary Nurse role handed off by Jorge Eugene, EMRE rg2 21:09 Nate Springer RN is Primary Nurse. jd3 22:00 Inserted 18 gauge 10 cm midline to right upper basilic vein on first attempt. Line with fc good blood return and flushes well. 22:11 No provider procedures requiring assistance completed. Patient admitted, IV remains in jd3 place. Administered Medications: 16:40 Drug: NS 0.9% (30 ml/kg) 30 ml/kg Route: IV; Rate: bolus; Site: right forearm; ae1 19:57 Follow up: Response: No adverse reaction; IV Status: Completed infusion; IV Intake: jd3 3000ml 18:25 Drug: fentaNYL (PF) 50 mcg Route: IVP; Site: right forearm; ae1 19:02 Follow up: Response: Pain is decreased ae1 18:28 Drug: Flagyl 500 mg Volume: 100 ml; Route: IVPB; Rate: 200 ml/hr; Infused Over: 30 ae1 mins; Site: right forearm; 19:58 Follow up: Response: No adverse reaction; IV Status: Completed infusion jd3 18:45 Drug: Clindamycin 600 mg Route: IVPB; Infused Over: 30 mins; Site: right forearm; ae1 19:58 Follow up: Response: No adverse reaction; IV Status: Completed infusion jd3 22:09 Drug: Tylenol 1000 mg Route: PO; jd3 22:40 Follow up: Response: No adverse reaction jd3 22:10 Drug: fentaNYL (PF) 25 mcg Route: IVP; Site: right antecubital; jd3 22:41 Follow up: Response: No adverse reaction jd3 22:32 Drug: Zofran 4 mg Route: IVP; Site: right antecubital; jd3 22:40 Follow up: Response: No adverse reaction jd3 Intake: 19:57 IV: 3000ml; Total: 3000ml. jd3 Outcome: 19:42 Decision to Hospitalize by Provider. snw 22:38 Admitted to Med/surg accompanied by nurse, via stretcher, room 208, with oxygen, with jd3 chart, Report called to Debi ANDREA 22:38 Condition: stable 22:38 Instructed on the need for admit, Demonstrated understanding of instructions. 22:57 Patient left the ED. mb3 Signatures: Dispatcher [employer] EDMS Sylvia Murcia rg2 Stephanie Garces, FINANCE VICE PRESIDENT-C FINANCE VICE PRESIDENT-Csnw Carina Yang mr Jackelin Rawls, RN RN Adrianne Kong, RN RN iw Calli Kwong Amanda, parks recreation coordinator EKG Tat1 Alfredo Krause RN RN hj Jorge Eugene RN RN ae1 Mercedes Jiménez 3 Nate Springer RN RN jThomas Willis RN RN mb3 Corrections: (The following items were deleted from the chart) 16:00 15:50 Acuity: MANISHA 3 hj iw 19:01 18:44 BP 156 / 95; Pulse 91bpm; Resp 16bpm; Pulse Ox 98% RA; ae1 ae1 23:01 19:32 BP 111 / 69; Pulse 80bpm; Resp 10bpm; Pulse Ox 99% RA; Pain 0/10; jd3 jd3 23:01 20:22 BP 114 / 74; Pulse 81bpm; Resp 12bpm; Spontaneous; Pulse Ox 97% RA; Temp 99.1F jd3 Oral; Pain 7/10; jd3
--- NOTE | 2017-12-20 19:43 | EDPHYS ---
Physician Documentation [facility] Name: Jose G Perera Age: 37 yrs Sex: Male : 1980 Arrival Date: 12/20/2017 Time: 15:36 Bed 19 Private MD: ED Physician Michele Gregorio HPI: 12/20 16:08 This 37 yrs old Male presents to ER via Ambulatory with complaints of Fever, snw Blood Pressure Problem. 16:08 The patient reports fever, that was measured at 102 degrees Fahrenheit. Onset: The snw symptoms/episode began/occurred suddenly, 3 day(s) ago, and became persistent. Modifying factors: there are no obvious modifying factors. Associated signs and symptoms: Pertinent positives: abdominal pain, diarrhea, x 1, Pertinent negatives: nausea, vomiting. The patient has experienced similar episodes in the past. The patient has been recently seen at an urgent care, today, for similar complaints, sent to ED for hypotension. Historical: - Allergies: 15:53 BACLOFEN; hj 15:53 CEPHALOSPORINS; hj 15:53 Demerol; hj 15:53 Dilaudid; hj 15:53 Levaquin; hj 15:53 Morphine; hj 22:21 Phenergan; jd3 - Home Meds: 15:53 gout metication [Active]; rosuvastatin 20 mg oral tab 1 tab once daily [Active]; Lyrica hj Oral 3 times per day [Active]; Ambien 10 mg Oral tab 1 tab once daily [Active]; Lamictal 100 mg Oral tab 1 tab once daily [Active]; Lexapro 20 mg Oral tab 1 tab once daily [Active]; - PMHx: 15:53 Hyperlipidemia; hj - PSHx: 15:53 Bowel resection; Hernia repair; Appendectomy; Hypospadius repair; Exploratory lap; hj - Immunization history:: Adult Immunizations up to date. - Social history:: Smoking status: Patient/guardian denies using tobacco, never smoked. ROS: 16:08 Eyes: Negative for injury, pain, redness, and discharge, ENT: Negative for injury, snw pain, and discharge, Neck: Negative for injury, pain, and swelling, Cardiovascular: Negative for chest pain, palpitations, and edema, Respiratory: Negative for shortness of breath, cough, wheezing, and pleuritic chest pain. 16:08 Back: Negative for injury and pain, : Negative for injury, bleeding, discharge, and swelling, MS/Extremity: Negative for injury and deformity, Skin: Negative for injury, rash, and discoloration, Neuro: Negative for headache, weakness, numbness, tingling, and seizure, Psych: Negative for depression, anxiety, suicide ideation, homicidal ideation, and hallucinations. 16:08 Constitutional: Positive for fever, malaise. 16:08 Abdomen/GI: Positive for abdominal pain, diarrhea, Negative for nausea and vomiting. Exam: 16:08 Head/Face: Normocephalic, atraumatic. Eyes: Pupils equal round and reactive to light, snw extra-ocular motions intact. Lids and lashes normal. Conjunctiva and sclera are non-icteric and not injected. Cornea within normal limits. Periorbital areas with no swelling, redness, or edema. ENT: Nares patent. No nasal discharge, no septal abnormalities noted. Tympanic membranes are normal and external auditory canals are clear. Oropharynx with no redness, swelling, or masses, exudates, or evidence of obstruction, uvula midline. Mucous membranes moist. Neck: Trachea midline, no thyromegaly or masses palpated, and no cervical lymphadenopathy. Supple, full range of motion without nuchal rigidity, or vertebral point tenderness. No Meningismus. Chest/axilla: Normal chest wall appearance and motion. Nontender with no deformity. No lesions are appreciated. Cardiovascular: Regular rate and rhythm with a normal S1 and S2. No gallops, murmurs, or rubs. Normal PMI, no JVD. No pulse deficits. Respiratory: Lungs have equal breath sounds bilaterally, clear to auscultation and percussion. No rales, rhonchi or wheezes noted. No increased work of breathing, no retractions or nasal flaring. Back: No spinal tenderness. No costovertebral tenderness. Full range of motion. Skin: Warm, dry with normal turgor. Normal color with no rashes, no lesions, and no evidence of cellulitis. Neuro: Awake and alert, GCS 15, oriented to person, place, time, and situation. Cranial nerves II-XII grossly intact. Motor strength 5/5 in all extremities. Sensory grossly intact. Cerebellar exam normal. Normal gait. Psych: Awake, alert, with orientation to person, place and time. Behavior, mood, and affect are within normal limits. 16:08 Abdomen/GI: Inspection: obese Bowel sounds: normal, Palpation: moderate abdominal tenderness, in the suprapubic area. 16:08 Musculoskeletal/extremity: Extremities: bilateral lower extremities in braces, ROM: no acute changes, Circulation is intact in all extremities. Sensation intact. Vital Signs: 15:53 BP 80 / 47; Pulse 79; Resp 18; Temp 97.6(TE); Pulse Ox 96% on R/A; Weight 97.52 kg; hj Height 5 ft. 4 in. (162.56 cm); 16:51 BP 88 / 60; Pulse 74; Resp 15; Pulse Ox 96% on R/A; ae1 17:04 BP 106 / 62; Pulse 77; Resp 14; Temp 98.2(O); Pulse Ox 97% on R/A; ae1 18:08 BP 111 / 68; Pulse 82; Resp 12; Pulse Ox 96% on R/A; ae1 18:34 BP 114 / 65; Pulse 82; Resp 12; Temp 98.2(O); Pulse Ox 89% on R/A; ae1 19:01 BP 107 / 71; Pulse 79; Resp 12; Pulse Ox 99% on R/A; ae1 19:32 BP 111 / 69; Pulse 80; Resp 10; Pulse Ox 99% on 2 lpm NC; Pain 0/10; jd3 20:22 BP 114 / 74; Pulse 81; Resp 12 S; Temp 99.1(O); Pulse Ox 97% on 2 lpm NC; Pain 7/10; jd3 22:10 BP 128 / 76; Pulse 92; Resp 18 S; Pulse Ox 96% on 2 lpm NC; jd3 23:00 BP 113 / 77; Pulse 87; Resp 14 S; Pulse Ox 96% on 2 lpm NC; Pain 3/10; jd3 15:53 Body Mass Index 36.90 (97.52 kg, 162.56 cm) hj 18:34 Nasal cannula applied at 2 liters, O2 saturation up to 96% ae1 MDM: 15:57 Patient medically screened. snw 19:42 Data reviewed: vital signs, nurses notes. Data interpreted: Pulse oximetry: on room air snw is 99 %. Interpretation: normal. Counseling: I had a detailed discussion with the patient and/or guardian regarding: the historical points, exam findings, and any diagnostic results supporting the discharge/admit diagnosis, lab results, radiology results, the need for further work-up and treatment in the hospital. Physician consultation: Sruthi Sanchez MD was called at 19:42, was contacted at 19:42, regarding admission, to the telemetry unit. in the emergency department to see patient at 19:42. 12/20 15:58 Order name: Urine Culture 12/20 15:58 Order name: T\T\S; Complete Time: 17:40 snw 12/20 15:58 Order name: Amylase, Serum; Complete Time: 17:33 snw 12/20 15:58 Order name: Basic Metabolic Panel; Complete Time: 17:33 snw 12/20 15:58 Order name: Blood Culture Adult (2) 12/20 15:58 Order name: BNP; Complete Time: 17:33 snw 12/20 15:58 Order name: C-Reactive Protein; Complete Time: 17:33 snw 12/20 15:58 Order name: CBC with Diff; Complete Time: 17:33 snw 12/20 15:58 Order name: Ckmb; Complete Time: 17:33 snw 12/20 15:58 Order name: CPK; Complete Time: 17:33 snw 12/20 15:58 Order name: Lactate; Complete Time: 17:33 snw 12/20 15:58 Order name: LFT's; Complete Time: 17:33 snw 12/20 15:58 Order name: Lipase; Complete Time: 17:33 snw 12/20 15:58 Order name: Procalcitonin; Complete Time: 17:33 snw 12/20 15:58 Order name: Protime (+inr); Complete Time: 17:33 snw 12/20 15:58 Order name: Ptt, Activated; Complete Time: 17:33 snw 12/20 15:58 Order name: Sed Rate; Complete Time: 17:33 snw 12/20 15:58 Order name: Troponin (emerg Dept Use Only); Complete Time: 17:33 snw 12/20 15:58 Order name: Chest Single View XRAY; Complete Time: 17:33 snw 12/20 16:08 Order name: CT Abd/Pelvis - W/Contrast; Complete Time: 18:05 snw 12/20 17:14 Order name: Urine Dipstick--Ancillary (enter results); Complete Time: 19:31 ag 12/20 17:44 Order name: ABO/RH no charge; Complete Time: 17:45 EDMS 12/20 18:10 Order name: Strep; Complete Time: 19:18 snw 12/20 18:16 Order name: Flu; Complete Time: 19:18 snw 12/20 19:04 Order name: Throat Culture EDMS 12/20 19:51 Order name: Basic Metabolic Panel EDMS 12/20 19:51 Order name: Basic Metabolic Panel EDMS 12/20 19:51 Order name: CBC with Automated Diff EDMS 12/20 19:51 Order name: CBC with Automated Diff EDMS 12/20 15:58 Order name: Cath; Complete Time: 17:04 snw 12/20 15:58 Order name: Accucheck; Complete Time: 17:37 snw 12/20 15:58 Order name: Cardiac monitoring; Complete Time: 16:50 snw 12/20 15:58 Order name: EKG - Nurse/Tech; Complete Time: 17:33 snw 12/20 15:58 Order name: IV Saline Lock - Large Bore; Complete Time: 16:50 snw 12/20 15:58 Order name: Labs collected and sent; Complete Time: 16:50 snw 12/20 15:58 Order name: O2 Per Protocol; Complete Time: 16:50 snw 12/20 15:58 Order name: O2 Sat Monitoring; Complete Time: 16:50 snw 12/20 15:58 Order name: Urine Dipstick-Ancillary (obtain specimen); Complete Time: 17:04 snw 12/20 17:38 Order name: EKG Electrocardiogram EDMS 12/20 19:51 Order name: Clear Liquid EDMS Administered Medications: 16:40 Drug: NS 0.9% (30 ml/kg) 30 ml/kg Route: IV; Rate: bolus; Site: right forearm; ae1 19:57 Follow up: Response: No adverse reaction; IV Status: Completed infusion; IV Intake: jd3 3000ml 18:25 Drug: fentaNYL (PF) 50 mcg Route: IVP; Site: right forearm; ae1 19:02 Follow up: Response: Pain is decreased ae1 18:28 Drug: Flagyl 500 mg Volume: 100 ml; Route: IVPB; Rate: 200 ml/hr; Infused Over: 30 ae1 mins; Site: right forearm; 19:58 Follow up: Response: No adverse reaction; IV Status: Completed infusion jd3 18:45 Drug: Clindamycin 600 mg Route: IVPB; Infused Over: 30 mins; Site: right forearm; ae1 19:58 Follow up: Response: No adverse reaction; IV Status: Completed infusion jd3 22:09 Drug: Tylenol 1000 mg Route: PO; jd3 22:40 Follow up: Response: No adverse reaction jd3 22:10 Drug: fentaNYL (PF) 25 mcg Route: IVP; Site: right antecubital; jd3 22:41 Follow up: Response: No adverse reaction jd3 22:32 Drug: Zofran 4 mg Route: IVP; Site: right antecubital; jd3 22:40 Follow up: Response: No adverse reaction jd3 Disposition: 12/21 06:48 Co-signature as Attending Physician, Michele Gregorio MD I agree with the assessment and wa plan of care. Disposition: 12/20/17 19:42 Hospitalization ordered by Sruthi Sanchez for Inpatient Admission. Preliminary diagnosis are Sepsis, unspecified organism, Other and unspecified noninfective gastroenteritis and colitis. - Bed requested for Telemetry/MedSurg (Inpatient). - Status is Inpatient Admission. mb3 - Condition is Stable. - Problem is an acute exacerbation. - Symptoms are unchanged. UTI on Admission? No Signatures: Dispatcher [employer] EDKS Sylvia Murcia rg2 Stephanie Garces, BOILER WASHER-C BOILER WASHER-Csnw Alfredo Krause RN RN hj Elliott, Andrea, RN RN ae1 Michele Gregorio MD MD wa Davies, Jonathon, RN RN jThomas Willis, RN RN mb3 Corrections: (The following items were deleted from the chart) 12/20 20:49 19:42 Hospitalization Ordered by Sruthi Sanchez MD for Inpatient Admission. Preliminary rg2 diagnosis is Sepsis, unspecified organism; Other and unspecified noninfective gastroenteritis and colitis. Bed requested for Telemetry/MedSurg (Inpatient). Status is Inpatient Admission. Condition is Stable. Problem is an acute exacerbation. Symptoms are unchanged. UTI on Admission? No. snw 22:57 20:49 12/20/2017 19:42 Hospitalization Ordered by Sruthi Sanchez MD for Inpatient mb3 Admission. Preliminary diagnosis is Sepsis, unspecified organism; Other and unspecified noninfective gastroenteritis and colitis. Bed requested for Telemetry/MedSurg (Inpatient). Status is Inpatient Admission. Condition is Stable. Problem is an acute exacerbation. Symptoms are unchanged. UTI on Admission? No. rg2
[2017-12-20] MEDS ORDERED: ACETAMINOPHEN 500 MG TAB PO PRN (19:47)
--- NOTE | 2017-12-20 21:45 | P.HP ---
Certification for Inpatient Patient admitted to: Inpatient With expected LOS: >2 Midnights Practitioner: I am a practitioner with admitting privileges, knowledge of patient current condition, hospital course, and medical plan of care. Services: Services provided to patient in accordance with Admission requirements found in Title 42 Section 412.3 of the Code of Federal Regulations Patient History Date of Service: 12/20/17 Reason for admission: sepsis History of Present Illness: Mr Perera is a 37 years old male mentally delay with history ulcerative colitis , who start about 3 days ago with fever and chills. He has had diarrhea as well. Today he was nauseated, and start with diffuse abdominal pain. In ER his BP was on the lower side, 80's/40's. lab work shows noraml WBC count, elevated procalcitonin, normal lactate. UA and CXR negative. CT abd/pelvis consistent with enteritis. Allergies Cephalosporins Allergy (Severe, Verified 07/27/15 04:26) Anaphylaxis baclofen Allergy (Intermediate, Verified 03/09/13 11:53) Itching/Hives/Rash hydromorphone HCl [From Dilaudid] Allergy (Intermediate, Verified 09/29/11 19:48 ) itching redness meperidine HCl [From Demerol] Allergy (Intermediate, Verified 09/29/11 19:47) Itching promethazine HCl [From Phenergan] Allergy (Intermediate, Verified 09/29/11 19:47 ) itching swelling levofloxacin [From Levaquin] Allergy (Unknown, Verified 09/29/11 19:48) itching redness morphine Allergy (Verified 01/29/12 14:08) Hives/Rash Home Medications: Escitalopram Oxalate [Lexapro] 20 mg PO BEDTIME 09/30/11 Lamotrigine [Lamictal] 100 mg PO BEDTIME 09/30/11 Lipase/Protease/Amylase [Creon 10 EC Capsule] 24,000 units PO QID 09/30/11 Telmisartan [Micardis] 20 mg PO BEDTIME 03/03/13 Diclofenac Sodium [Voltaren] 1 chantale TOP QID PRN 04/20/15 Fenofibrate [Tricor*] 145 mg PO BEDTIME 04/20/15 Fish Oil/Dha/Epa [Fish Oil 1,200 mg Fish Oil] 1 each PO DAILY 04/20/15 Loratadine [Claritin*] 10 mg PO BEDTIME 04/20/15 Omeprazole [Prilosec] 20 mg PO DAILY 04/20/15 Pregabalin [Lyrica] 150 mg PO BID 04/20/15 Simvastatin 20 mg PO BEDTIME 04/20/15 Ubidecarenone [Co Q-10] 200 mg PO DAILY 04/20/15 Zolpidem Tartrate [Ambien] 10 mg PO BEDTIME 04/20/15 traMADol HCL [Ultram*] 50 mg PO Q6H PRN #30 tab 08/11/15 Magnesium Oxide [Mag 0X*] 400 mg PO DAILY 01/09/16 Mesalamine [Lialda] 1 tab PO DAILY 01/09/16 - Past Medical/Surgical History Diabetic: No -: Diverticulitis -: Hypospadias -: Pancreatitis-chronic -: Mental Retardation (10 Year Old Level) -: ulcerative colitis -: neuropathy -: Appy -: Bowel resection -: Hernia repair -: Bilateral Eye Sx (Muscle Adjustment) -: exploratory lap -: hypospadius - Family History Mother Notes: Mom stated that "he is adopted" - Social History Smoking Status: Never smoker Alcohol use: No CD- Drugs: No Caffeine use: Yes Place of Residence: Home Review of Systems 10-point ROS is otherwise unremarkable Physical Examination - Physical Exam General: Alert, In no apparent distress HEENT: Atraumatic, PERRLA, Mucous membr. moist/pink, EOMI, Sclerae nonicteric Neck: Supple, 2+ carotid pulse no bruit, No LAD, Without JVD or thyroid abnormality Respiratory: Clear to auscultation bilaterally, Normal air movement Cardiovascular: Regular rate/rhythm, Normal S1 S2 Gastrointestinal: Hypoactive, Tenderness (diffuse) Musculoskeletal: No tenderness Integumentary: No rashes Neurological: Normal speech, Normal strength at 5/5 x4 extr, Normal tone, Normal affect Lymphatics: No axilla or inguinal lymphadenopathy - Studies Laboratory Data (last 24 hrs) 12/20/17 16:41: PT 13.6 H, INR 1.15, APTT 32.3 12/20/17 16:41: WBC 7.7, Hgb 12.6 L, Hct 39.1 L, Plt Count 154 12/20/17 16:41: B-Natriuretic Peptide 48 12/20/17 16:41: Sodium 142, Potassium 4.5, BUN 25 H, Creatinine 1.80 H, Glucose 112, Total Bilirubin 0.4, AST 31, ALT 32, Alkaline Phosphatase 54, Amylase 56, Lipase 21 L Microbiology Data (last 24 hrs): 12/20/17 18:15 Nasopharnyx Influenza Type A Antigen Screen - Final 12/20/17 18:15 Nasopharnyx Influenza Type B Antigen Screen - Final 12/20/17 18:15 Throat Group A Streptococcus Rapid Screen - Final Assessment and Plan - Problems (Diagnosis) (1) Enteritis Current Visit: Yes Status: Acute (2) Abdominal pain Onset Date: 04/20/15 Current Visit: No Status: Active (3) CKD (chronic kidney disease), stage III Onset Date: 01/10/16 Current Visit: No Status: Acute (4) Sepsis Current Visit: Yes Status: Acute Qualifiers: Sepsis type: sepsis due to unspecified organism Qualified Code(s): A41.9 - Sepsis, unspecified organism - Plan The patient will be admitted to the hospital due to sepsis, likely secondary to enteritis. Will start Aztreonam, since he has several antibiotic allergies, order IV fluids, symptomatic pain medication, consult GI since has history of ulcerative colitis. - Advance Directives Does patient have a Living Will: No Does patient have a Durable POA for Healthcare: No - Code Status/Comfort Care Code Status Assessed: Yes Code Status: Full Code
[2017-12-20] MEDS ORDERED: ACETAMINOPHEN 500 MG TAB ONE (21:57)
[2017-12-20] MEDS ORDERED: PROMETHAZINE 25 MG/ML VIAL ONE (22:15)
[2017-12-20] MEDS ORDERED: ONDANSETRON 4 MG/2 ML VIAL ONE (22:25)
[2017-12-20] MEDS: NA CHLORIDE 0.9% 1,000 ML IV SCH (23:15)
[2017-12-20] MEDS ORDERED: NA CHLORIDE 0.9% 50 ML IV ONE (23:18)
[2017-12-21] MEDS: FENTANYL CITR 100 MCG/2 ML IV PRN ×6 (00:59→20:59)
[2017-12-21] MEDS ORDERED: AZTREONAM 1 GM/VIAL IV SCH (01:00)
[2017-12-21 01:41] VITALS: BMI 36.8
[2017-12-21] MEDS: NA CHLORIDE 0.9% 1,000 ML IV SCH ×3 (05:04→20:12)
--- NOTE | 2017-12-21 06:43 | EKG ---
Test Date: 2017-12-20 Test Time: 17:54:54 Highway Inspector: FABBY MEASUREMENT RESULTS: Intervals: Rate: 82 [place]: 182 QRSD: 90 QT: 386 QTc: 450 [place]: P: 56 [place]: 182 QRS: 71 T: 45 INTERPRETIVE STATEMENTS: Normal sinus rhythm Normal ECG Compared to ECG 04/19/2015 22:38:17 Sinus bradycardia no longer present Electronically Signed On 12-21-17 06:43:06 CDT by Marcus Leavitt
[2017-12-21 07:18] LABS: Absolute Lymphocytes (CBC) 2.3 K/uL (0.7-4.9); Absolute Monocytes 0.9 K/uL (0.1-1.3); Absolute Neutrophil 3.5 K/uL (1.8-8.0); Basophils % 0.9 % (0-1.3); Eosinophils % 0.4 % (0-4.4); Hematocrit 39.1 % (39.6-49.0); Lymphocytes % 34.1 % (15.3-44.8); MCH 27.2 pg (27.0-35.0); MCV 83.8 fL (80-100); MPV 10.7 fL (7.6-11.3); Monocytes % 12.9 % (3.3-12.3); RBC Red Blood Cell Count 4.67 M/uL (4.33-5.43)
[2017-12-21 07:29] LABS: Potassium 4.9 mEq/L (3.6-5.0)
[2017-12-21] MEDS: AZTREONAM 1 GM in NA CHLORIDE 0.9% 50 ML IV SCH ×2 (09:16→16:54)
[2017-12-21 10:19] LABS: Blood Morphology Comment NOT SEEN (NOT SEEN); Platelet Estimate ADEQ; Urine White Blood Cell Casts OK
[2017-12-21] MEDS ORDERED: HOME MED 1 EA UNK (Diclofenac Sodium [Voltaren] 1 APP) TOP PRN (11:33)
[2017-12-21] MEDS ORDERED: TRAMADOL HCL 50 MG TAB PO PRN (11:33)
[2017-12-21] MEDS: PREGABALIN 50 MG CAP PO SCH ×2 (12:07→21:00)
[2017-12-21] MEDS: PREGABALIN 150 MG CAP PO SCH ×2 (12:07→20:59)
[2017-12-21] MEDS: DOMPERIDONE 10 MG PO SCH (16:30)
[2017-12-21] MEDS: ONDANSETRON 4 MG/2 ML VIAL IV PRN ×2 (16:54→20:59)
--- NOTE | 2017-12-21 17:23 | P.PN ---
Subjective Date of Service: 12/21/17 Chief Complaint: sepsis Subjective: No new changes, Other (still complaining of some abdominal pain) Review of Systems 10-point ROS is otherwise unremarkable Physical Examination - Vital Signs Temperature: 99.6 F Blood Pressure: 101/52 Pulse: 85 Respirations: 18 Pulse Ox (%): 90 - Physical Exam General: In no apparent distress, Oriented x3, Other (sleepy) Neck: Supple, JVD not distended, No Thyromegaly, No LAD Respiratory: Clear to auscultation bilaterally, Normal air movement Cardiovascular: No edema, Normal pulses, Regular rate/rhythm Gastrointestinal: Normal bowel sounds, Soft and benign, Non-distended, W/out hepatosplenomegaly, No ascites, No masses, No rebound, Tenderness (generalized) , Guarding Musculoskeletal: No clubbing, No swelling, No contractures, No erythema, No tenderness Neurological: Normal speech, Normal tone, Sensation intact - Studies Laboratory Data (last 24 hrs) 12/20/17 16:41: PT 13.6 H, INR 1.15, APTT 32.3 12/20/17 16:41: B-Natriuretic Peptide 48 12/20/17 16:41: BUN 25 H, Creatinine 1.80 H, Total Bilirubin 0.4, AST 31, ALT 32 , Alkaline Phosphatase 54, Amylase 56 Microbiology Data (last 24 hrs): 12/20/17 18:15 Nasopharnyx Influenza Type A Antigen Screen - Final 12/20/17 18:15 Nasopharnyx Influenza Type B Antigen Screen - Final 12/20/17 18:15 Throat Group A Streptococcus Rapid Screen - Final Assessment And Plan - Current Problems (Diagnosis) (1) Fever Current Visit: Yes Status: Acute Plan: etiology not clear. suspect GI however abdominal pain appears to be chronic, no vomiting or diarrhea for past 2 days follow up blood culture and urine cultures continue azetranom for now pending results of culture anti pyretics prn (2) Abdominal pain Onset Date: 12/21/17 Current Visit: Yes Status: Acute Plan: acute on chronic tolerating fentanyl anti emetics prn will monitor overnight if no improvement will reach out to his private GI resume home medications Physician Review: Patient Assessed, Agree with Above Assessment and Plan Time Spent Managing PTS Care (In Minutes): 30
[2017-12-21] MEDS: ESCITALOPRAM 20 MG TAB PO SCH (20:58)
[2017-12-21] MEDS: DIPHENOX/ATROP SULF 1 TAB PO SCH (20:58)
[2017-12-21] MEDS: LORATADINE 10 MG TAB PO SCH (21:00)
[2017-12-21] MEDS: ROSUVASTATIN 10 MG TAB PO SCH (21:00)
[2017-12-21] MEDS: ZOLPIDEM TARTRATE 10 MG TABLET PO SCH (21:00)
[2017-12-21] MEDS: lamoTRIgine 100 MG TAB PO SCH (21:00)
[2017-12-22] MEDS: FENTANYL CITR 100 MCG/2 ML IV PRN ×6 (00:59→22:12)
[2017-12-22] MEDS: AZTREONAM 1 GM in NA CHLORIDE 0.9% 50 ML IV SCH ×2 (01:00→09:56)
[2017-12-22] MEDS: ONDANSETRON 4 MG/2 ML VIAL IV PRN ×3 (05:07→22:20)
[2017-12-22 06:18] LABS: Potassium 4.2 mEq/L (3.6-5.0)
[2017-12-22 06:31] LABS: Magnesium 1.3 mg/dL (1.8-2.5)
[2017-12-22] MEDS ORDERED: Magnesium Sulfate 2gm IVPB 2 G/50 ML BAG IV ONE (06:36)
[2017-12-22] MEDS: NA CHLORIDE 0.9% 1,000 ML IV SCH ×2 (06:51→21:38)
[2017-12-22] MEDS: DOMPERIDONE 10 MG PO SCH ×3 (07:30→15:51)
[2017-12-22] MEDS: FEBUXOSTAT 40 MG PO SCH (09:00)
[2017-12-22] MEDS: COENZYME Q10- 200 MG CAP PO SCH (09:26)
[2017-12-22] MEDS: PREGABALIN 50 MG CAP PO SCH ×3 (09:27→21:36)
[2017-12-22] MEDS: MAGNESIUM OXIDE 400 MG TAB PO SCH (09:27)
[2017-12-22] MEDS: DOCOSAHEXANOIC AC/EPA 1000 MG PO SCH (09:27)
[2017-12-22] MEDS: PREGABALIN 150 MG CAP PO SCH ×3 (09:27→21:36)
--- NOTE | 2017-12-22 12:13 | P.PN ---
Subjective Date of Service: 12/22/17 Chief Complaint: abdominal pain Subjective: Tolerating diet, Other (still reporting some abdominal pain and requesting for fentanyl. comfortably in bed) Review of Systems 10-point ROS is otherwise unremarkable Physical Examination - Vital Signs Temperature: 98.8 F Blood Pressure: 128/62 Pulse: 73 Respirations: 16 Pulse Ox (%): 92 - Physical Exam General: Alert, In no apparent distress, Oriented x3 HEENT: Atraumatic, Normocephalic, PERRLA Neck: Supple, JVD not distended, No Thyromegaly, No LAD Respiratory: Clear to auscultation bilaterally, Normal air movement Cardiovascular: No edema, Regular rate/rhythm, Normal S1 S2, No gallops, No rubs , No murmurs Gastrointestinal: Normal bowel sounds, Soft and benign, Non-distended, W/out hepatosplenomegaly, No ascites, No tenderness, No masses, No rebound, No guarding Musculoskeletal: No clubbing, No erythema, No tenderness, No warmth Neurological: Normal speech, Normal strength at 5/5 x4 extr, Normal tone, Sensation intact - Studies Microbiology Data (last 24 hrs): 12/20/17 18:15 Throat Culture & Sensitivity - Final 12/20/17 17:02 Catheterized Urine [place] Count - Final <10,000 CFU/ML. 12/20/17 17:02 Catheterized Urine - Final Assessment And Plan - Current Problems (Diagnosis) (1) Fever Current Visit: Yes Status: Acute Plan: no reported fever in 24 hours initial suspicion for source to be GI however abdominal pain appears to be chronic, no vomiting or diarrhea for past 2 days follow up blood culture and urine cultures. so far negative will discontinue azetranom anti pyretics prn (2) Abdominal pain Onset Date: 12/21/17 Current Visit: Yes Status: Acute Plan: acute on chronic tolerating fentanyl anti emetics prn will continue to monitor if no improvement will reach out to his private GI resume home medications Discharge Plan: Home Physician Review: Patient Assessed, Agree with Above Assessment and Plan Time Spent Managing PTS Care (In Minutes): 25
--- NOTE | 2017-12-22 12:42 | CON ---
History Of Present Illness: This is a 37-year-old gentleman, who has a history of Down syndrome, who has been seen by us before. There was a question of ulcerative colitis, however, he has had colonos copy that had ruled it out. He has these chronic symptoms of abdominal pain for which he is required admission. As per his mother, the last time he was evaluated in [place], and they actually diagnose d him with gastroparesis as well, so he was started on Motilium, which he responded to well, however, he now comes with abdominal pain. Pain is actually located in the lower abdomen like on the last ep isodes. He denies any other significant symptoms. No nausea. His bowels are regular. No blood in the stools. He did have fever reported at home and he is a little hypotensive, therefore he was admi tted. Allergies: HE HAS MULTIPLE ALLERGIES LISTED IN THE CHART. Home Medications: As in the chart. Past Medical History: Diverticulosis, hypospadias, chronic pancreatitis, mental retardation, neuropa thy. Also smoldering myeloma. Past Surgical History: He has had bilateral eye surgery, exploratory laparotomy. Family History: Noncontributory. Social History: No toxic habits known. Review of Systems: GI: As in HPI. Otherwise, negative. Remainder of 10-point review of systems are negative. Physical Examination: Vital Signs: Reviewed. He is afebrile at this time, normotensive, not tachycardic, not tachypneic. HEENT: Head atraumatic, normocephalic. Pupils equally reactive. Neck: Supple. Chest: Clear to auscultation bilaterally. Abdomen: Soft, however, he does complain of mild lower abdominal tenderness. Bowel sounds are prese nt. Laboratory Data: Reviewed. No significant pathology. He also had a CT, which did not show any significant abnormality. Impression: A 37-year-old male with history of chronic lower abdominal pain, which comes as acute ep isodes, presents with similar symptoms. He does not seem to have any acute condition that would requ jan emergency intervention, probably also is related to his neuropathy versus adhesions. Plan: Continue current management. Continue antibiotics. Diet as tolerated. Recall GI if needed. US/MODL Voice ID: [id number] Report ID: [id number]
[2017-12-22] MEDS: ROSUVASTATIN 10 MG TAB PO SCH (21:32)
[2017-12-22] MEDS: DIPHENOX/ATROP SULF 1 TAB PO SCH (21:32)
[2017-12-22] MEDS: ZOLPIDEM TARTRATE 10 MG TABLET PO SCH (21:36)
[2017-12-22] MEDS: ESCITALOPRAM 20 MG TAB PO SCH (21:36)
[2017-12-22] MEDS: lamoTRIgine 100 MG TAB PO SCH (21:37)
[2017-12-22] MEDS: LORATADINE 10 MG TAB PO SCH (21:37)
[2017-12-23] MEDS: FENTANYL CITR 100 MCG/2 ML IV PRN ×5 (02:07→22:15)
[2017-12-23] MEDS: NA CHLORIDE 0.9% 1,000 ML IV SCH (05:58)
[2017-12-23] MEDS: ONDANSETRON 4 MG/2 ML VIAL IV PRN ×3 (05:58→22:15)
[2017-12-23 06:02] LABS: Absolute Monocytes 0.5 K/uL (0.1-1.3); Absolute Neutrophil 2.3 K/uL (1.8-8.0); Basophils % 0.5 % (0-1.3); Eosinophils % 4.6 % (0-4.4); Hematocrit 33.3 % (39.6-49.0); Lymphocytes % 39.4 % (15.3-44.8); MCV 82.7 fL (80-100); Monocytes % 9.5 % (3.3-12.3); RBC Red Blood Cell Count 4.03 M/uL (4.33-5.43)
[2017-12-23 06:15] LABS: Magnesium 1.8 mg/dL (1.8-2.5); Potassium 4.1 mEq/L (3.6-5.0)
[2017-12-23] MEDS ORDERED: MAGNESIUM SULFATE 1 gm IVPB 1 GM/100 ML BAG IV ONE (06:23)
[2017-12-23] MEDS: DOMPERIDONE 10 MG PO SCH ×3 (07:30→15:18)
[2017-12-23] MEDS: FEBUXOSTAT 40 MG PO SCH (09:00)
[2017-12-23] MEDS: PREGABALIN 150 MG CAP PO SCH ×3 (09:54→22:13)
[2017-12-23] MEDS: PREGABALIN 50 MG CAP PO SCH ×3 (09:54→22:13)
[2017-12-23] MEDS: DOCOSAHEXANOIC AC/EPA 1000 MG PO SCH (09:54)
[2017-12-23] MEDS: MAGNESIUM OXIDE 400 MG TAB PO SCH (09:54)
[2017-12-23] MEDS: COENZYME Q10- 200 MG CAP PO SCH (09:55)
--- NOTE | 2017-12-23 13:17 | P.PN ---
Subjective Date of Service: 12/23/17 Chief Complaint: abdominal pain Subjective: Other (patient continues to complain of abdominal pain, he however has been able to tolerate his diet and appears comfortable on examination) Review of Systems 10-point ROS is otherwise unremarkable Physical Examination - Vital Signs Temperature: 98.7 F Blood Pressure: 116/54 Pulse: 58 Respirations: 16 Pulse Ox (%): 94 - Physical Exam General: Alert, In no apparent distress, Oriented x3 HEENT: Atraumatic, Normocephalic, PERRLA Neck: Supple, JVD not distended, No Thyromegaly, No LAD Respiratory: Clear to auscultation bilaterally, Normal air movement Cardiovascular: No edema, Normal pulses, Regular rate/rhythm, Normal S1 S2, No rubs, No murmurs Gastrointestinal: Normal bowel sounds, Soft and benign, Non-distended, W/out hepatosplenomegaly, No ascites, No tenderness, No masses, No rebound, No guarding Musculoskeletal: No clubbing, No swelling, No contractures, No erythema, No tenderness, No warmth - Studies Microbiology Data (last 24 hrs): 12/20/17 18:15 Throat Culture & Sensitivity - Final 12/20/17 17:02 Catheterized Urine [place] Count - Final <10,000 CFU/ML. 12/20/17 17:02 Catheterized Urine - Final Assessment And Plan - Current Problems (Diagnosis) (1) Fever Current Visit: Yes Status: Acute Plan: no reported fever in 48 hours initial suspicion for source to be GI however abdominal pain appears to be chronic, no vomiting or diarrhea for past 2 days follow up blood culture and urine cultures. so far negative azetranom discontinued anti pyretics prn (2) Abdominal pain Onset Date: 12/21/17 Current Visit: Yes Status: Acute Plan: acute on chronic. still reporting a lot of pain and demanding fentanyl every 4 hours. however examination benign will reduce fentanyl frequency and introduce tramadol po anti emetics prn will continue to monitor if no improvement will reach out to his private GI continue home medications Plan to discharge in: 24 Hours Physician Review: Patient Assessed, Agree with Above Assessment and Plan Time Spent Managing PTS Care (In Minutes): 25
[2017-12-23] MEDS: ROSUVASTATIN 10 MG TAB PO SCH (22:11)
[2017-12-23] MEDS: DIPHENOX/ATROP SULF 1 TAB PO SCH (22:12)
[2017-12-23] MEDS: LORATADINE 10 MG TAB PO SCH (22:14)
[2017-12-23] MEDS: lamoTRIgine 100 MG TAB PO SCH (22:14)
[2017-12-23] MEDS: ESCITALOPRAM 20 MG TAB PO SCH (22:14)
[2017-12-23] MEDS: ZOLPIDEM TARTRATE 10 MG TABLET PO SCH (22:15)
[2017-12-24] MEDS: ONDANSETRON 4 MG/2 ML VIAL IV PRN (04:47)
[2017-12-24] MEDS: FENTANYL CITR 100 MCG/2 ML IV PRN (04:47)
[2017-12-24 05:51] LABS: Magnesium 1.4 mg/dL (1.8-2.5)
[2017-12-24] MEDS ORDERED: Magnesium Sulfate 2gm IVPB 2 G/50 ML BAG IV ONE (06:01)
[2017-12-24] MEDS ORDERED: NA CHLORIDE 0.9% 100 ML ONE (06:39)
[2017-12-24] MEDS: DOMPERIDONE 10 MG PO SCH ×2 (07:30→10:59)
[2017-12-24] MEDS: FEBUXOSTAT 40 MG PO SCH (08:09)
[2017-12-24] MEDS: COENZYME Q10- 200 MG CAP PO SCH (09:59)
[2017-12-24] MEDS: PREGABALIN 50 MG CAP PO SCH (10:00)
[2017-12-24] MEDS: PREGABALIN 150 MG CAP PO SCH (10:00)
[2017-12-24] MEDS: MAGNESIUM OXIDE 400 MG TAB PO SCH (10:00)
[2017-12-24] MEDS: DOCOSAHEXANOIC AC/EPA 1000 MG PO SCH (10:00)
--- NOTE | 2017-12-24 10:59 | P.DS ---
Admission Date: 12/20/17 Discharge Date: 12/24/17 Primary Care Provider: Nato Estrada NP; GI-Dr. Dubon([facility]); Rheumatology; Oncology-MD Hussein Disposition: ROUTINE DISCHARGE Discharge Condition: GOOD Reason for Admission: abdominal pain Consultations: GI-Dr. Delgado Procedures: Chest x-ray: No acute findings noted CT scan: FINDINGS: Minimal stranding in each posterior gutter. No focal mass, consolidation or pleural effusion. No pericardial effusion. Fat infiltration pattern of the liver is noted. No focal liver lesion. No spleen or pancreatic acute finding. Gallbladder is absent. No biliary tree dilatation. Symmetric renal function is seen with no hydronephrosis or suspicious renal mass. No pyelonephritis or acute renal parenchymal process. No urinary bladder wall thickening or mass. No gastric dilatation or gastric wall thickening. There is no large or small bowel dilatation. Mild diverticulosis is present without diverticulitis. No free air, free fluid or inflammatory stranding. No mass or bulky lymphadenopathy. Postsurgical changes are noted to the anterior abdominal wall. There is atrophy of the rectus musculature in the mid and upper abdominal wall. Small nonspecific peripancreatic and periportal lymph nodes are present. No abnormal aortoiliac chain lymphadenopathy. No adrenal abnormality. No suspicious bony findings. IMPRESSION: No obstruction, free air or surgically emergent finding. No bowel obstruction or focal bowel process seen. A few of the small bowel loops are prominent and a nonspecific enteritis is possible. No abnormality seen as a source for fever. Fatty infiltration of the liver. - Problems (1) Acute renal injury Current Visit: Yes Status: Resolved (2) Hypertension Current Visit: Yes Status: Chronic Qualifiers: Hypertension type: essential hypertension Qualified Code(s): I10 - Essential (primary) hypertension (3) Hyperlipidemia Current Visit: Yes Status: Chronic Qualifiers: Hyperlipidemia type: unspecified Qualified Code(s): E78.5 - Hyperlipidemia , unspecified (4) GERD (gastroesophageal reflux disease) Current Visit: Yes Status: Suspected Qualifiers: Esophagitis presence: esophagitis presence not specified Qualified Code(s) : K21.9 - Gastro-esophageal reflux disease without esophagitis (5) Fatty liver Current Visit: Yes Status: Chronic (6) Depression with anxiety Current Visit: Yes Status: Chronic (7) Obesity Current Visit: Yes Status: Chronic Qualifiers: Obesity type: due to excess calories Obesity classification: adult class 2 (BMI 35 - 39.9) Serious obesity comorbidity presence: with serious comorbidity Body mass index: BMI 36.0-36.9 Qualified Code(s): E66.01 - Morbid (severe) obesity due to excess calories; Z68.36 - Body mass index (BMI) 36.0-36.9, adult (8) Anemia Current Visit: Yes Status: Chronic Qualifiers: Anemia type: unspecified type Qualified Code(s): D64.9 - Anemia, unspecified (9) Abdominal pain Onset Date: 12/21/17 Current Visit: Yes Status: Acute Qualifiers: Abdominal location: generalized Qualified Code(s): R10.84 - Generalized abdominal pain (10) Enteritis Onset Date: 12/21/17 Current Visit: Yes Status: Acute (11) Fever Current Visit: Yes Status: Resolved Brief History of Present Illness: 37-year-old male presented emergency room with abdominal pain. Patient with history of chronic abdominal pain seen by [facility]. Patient has had evaluation the past including colonoscopy. Ulcerative colitis has been ruled out. CT scan in the ER showed nonspecific enteritis with fatty liver. The patient was admitted for further evaluation. GI was consulted. Patient's medical history includes hypertension, hyperlipidemia, depression with anxiety, and Down syndrome. Hospital Course: The patient was found to have nonspecific enteritis. Blood culture, urine culture and and throat cultures were negative for bacteria. White count improved. Patient appeared to have acute renal injury likely from dehydration. Patient was given IV fluids. Patient was seen by GI-Dr. Delgado. GI reported that the patient had been evaluated by GI in the past with colonoscopy. Ulcerative colitis was ruled out in the past. Antibiotics were discontinued during his stay. At discharge he denied having any significant nausea or vomiting. Abdominal pain appeared to be stable. As mentioned above patient with history of chronic abdominal pain. At discharge patient will continue with tramadol 50 mg 1 pill 3 times a day as needed for pain. Patient may have underlying GERD. At discharge, patient will continue with Protonix 40 mg 1 pill once daily. Recommendation is the patient follow up with GI as an outpatient to further monitor and address. No need for antibiotics at this time. Patient has hypertension. Patient may continue with Norvasc. Recommendation is to maintain blood pressures less 150/80. Further adjustment can be done by his PCP. Patient has hyperlipidemia. Patient will continue with his medication. Further adjustment can be done by his PCP. Patient with depression with anxiety. Patient will continue with his multiple medications. As mentioned above, patient may have underlying GERD. Patient will continue with Protonix 40 mg 1 pill once daily. Patient will follow up with GI as an outpatient further monitor. Patient may require EGD in the future to further address. Recommendation is not to use any nonsteroidal anti-inflammatories in the future. Patient with low magnesium. Patient will continue with magnesium supplementation. Recommendation is to recheck lab-BMP, CBC and magnesium in 1 week to monitor his progress and further monitor. Patient found to have fatty liver. Dietary and lifestyle modification education will be provided. This can be further addressed by GI as an outpatient. Patient presented with acute renal injury. Lab shows renal function back to baseline. Patient was given IV fluids in the hospitalization. Recommendation is to recheck BMP in 1 week to monitor his progress. Vital Signs/Physical Exam: Temp Pulse Resp BP Pulse Ox 97.5 F 59 16 121/64 94 12/24/17 08:00 12/24/17 08:00 12/24/17 08:00 12/24/17 08:00 12/24/17 08:00 General: Alert, In no apparent distress, Cooperative HEENT: Atraumatic Neck: Supple Respiratory: Clear to auscultation bilaterally, Normal air movement Cardiovascular: Normal pulses, Regular rate/rhythm Gastrointestinal: Normal bowel sounds, Soft and benign, Non-distended, No masses , No rebound, No guarding Musculoskeletal: No erythema, No tenderness, No warmth Integumentary: No tenderness/swelling, No erythema, No warmth, No cyanosis Neurological: Normal speech, Normal strength at 5/5 x4 extr, Normal tone, Normal affect Laboratory Data at Discharge: WBC 5.0 K/uL (4.3-10.9) D 12/23/17 05:05 Hgb 11.3 g/dL (13.6-17.9) L 12/23/17 05:05 Hct 33.3 % (39.6-49.0) L 12/23/17 05:05 Plt Count 147 K/uL (152-406) L 12/23/17 05:05 PT 13.6 SECONDS (9.5-12.5) H 12/20/17 16:41 INR 1.15 12/20/17 16:41 APTT 32.3 SECONDS (24.3-36.9) 12/20/17 16:41 Sodium 142 mEq/L (135-145) 12/24/17 04:45 Potassium 4.0 mEq/L (3.6-5.0) 12/24/17 04:45 BUN 10 mg/dL (6-20) 12/24/17 04:45 Creatinine 1.16 mg/dL (0.61-1.24) 12/24/17 04:45 Glucose 99 mg/dL (65-120) 12/24/17 04:45 Magnesium 1.4 mg/dL (1.8-2.5) L* 12/24/17 04:45 Total Bilirubin 0.4 mg/dL (0.3-1.2) 12/20/17 16:41 AST 31 IU/L (10-42) 12/20/17 16:41 ALT 32 IU/L (10-60) 12/20/17 16:41 Alkaline Phosphatase 54 IU/L (42-121) 12/20/17 16:41 B-Natriuretic Peptide 48 pg/ml (<=100) 12/20/17 16:41 Amylase 56 U/L (28-100) 12/20/17 16:41 Lipase 21 U/L (22-51) L 12/20/17 16:41 Home Medications: Escitalopram Oxalate [Lexapro] 20 mg PO BEDTIME 09/30/11 Lamotrigine [Lamictal] 100 mg PO BEDTIME 09/30/11 Diclofenac Sodium [Voltaren] 1 chantale TOP QID PRN 04/20/15 Fish Oil/Dha/Epa [Fish Oil 1,200 mg Fish Oil] 1 each PO DAILY 04/20/15 Loratadine [Claritin*] 10 mg PO BEDTIME 04/20/15 Pregabalin [Lyrica] 200 mg PO TID 04/20/15 Ubidecarenone [Co Q-10] 200 mg PO DAILY 04/20/15 Zolpidem Tartrate [Ambien] 10 mg PO BEDTIME 04/20/15 traMADol HCL [Ultram*] 50 mg PO Q6H PRN #30 tab 08/11/15 Magnesium Oxide [Mag 0X*] 400 mg PO DAILY 01/09/16 Amlodipine Besylate 5 mg PO DAILY 12/20/17 Diphenox/Atropine [Lomotil*] 0.5 tab PO BEDTIME 12/20/17 Domperidome 10 mg PO AC 12/20/17 Febuxostat [Uloric] 40 mg PO DAILY 12/20/17 Rosuvastatin Calcium 20 mg PO BEDTIME 12/20/17 Pantoprazole [Protonix Tab] 40 mg PO DAILY #30 tab 12/24/17 New Medications: Pantoprazole [Protonix Tab] 40 mg PO DAILY #30 tab Patient Discharge Instructions: 1. Patient will need to follow up with his PCP in 1 week to follow up this hospitalization. 2. Patient presented with acute on chronic abdominal pain. Patient found to have nonspecific enteritis. Blood culture, urine culture, sputum cultures were negative. No sepsis identified. Patient evaluated by GI. Patient has had colonoscopy in the past. Ulcer colitis has been ruled out. At discharge, patient may continue with tramadol 50 mg 1 pill 3 times a day as needed for pain. Patient may have underlying GERD. Patient will continue with Protonix 40 mg 1 pill once daily. Recommendation is the patient follow up with GI as an outpatient to further monitor and address. No need for antibiotics at this time. 3. Patient has hypertension. Patient may continue with Norvasc. Recommendation is to maintain blood pressures less 150/80. Further adjustment can be done by his PCP. 4. Patient has hyperlipidemia. Patient will continue with his medication. Further adjustment can be done by his PCP. 5. Patient with depression with anxiety. Patient will continue with his multiple medications. 6. Patient may have underlying GERD. Patient will continue with Protonix 40 mg 1 pill once daily. Patient will follow up with GI as an outpatient further monitor. 7. Patient with low magnesium. Patient will continue with magnesium supplementation. Recommendation is to recheck lab-BMP, CBC and magnesium in 1 week to monitor his progress and further monitor. 8. Patient found to have fatty liver. Dietary and lifestyle modification education will be provided. This can be further addressed by GI as an outpatient. 9. Patient presented with acute renal injury. Lab shows renal function back to baseline. Recommendation is to recheck BMP in 1 week to monitor his progress. Diet: AHA Activity: Fall precautions Time spent managing pt's care (in minutes): 55
[2017-12-24 12:41] VITALS: BP 117/56; TEMP 98.2
[2017-12-24 12:59] VITALS: O2SAT 92
== END 2017-12-24 13:20 | disposition home or self-care (01) | DRG 392 ==
LOC: ER 15:32 → ERHOLD 19:52 → 2ND 21:13
PROVIDERS: ADMIT Internal Medicine; ATTEND Internal Medicine
DX: K52.9 Noninfective gastroenteritis and colitis, unspecified (principal); N17.9 Acute kidney failure, unspecified; E86.0 Dehydration; I10 Essential (primary) hypertension; E78.5 Hyperlipidemia, unspecified; F41.8 Other specified anxiety disorders; Q90.9 Down syndrome, unspecified; D64.9 Anemia, unspecified; E66.01 Morbid (severe) obesity due to excess calories; Z68.36 Body mass index [BMI] 36.0-36.9, adult; K76.0 Fatty (change of) liver, not elsewhere classified; K21.9 Gastro-esophageal reflux disease without esophagitis; E83.42 Hypomagnesemia
CPT/HCPCS: 36415; 51702; 71045; 74177; 80048; 80076; 81003; 82150; 82550; 82553; 82962; 83605; 83690; 83735; 83880; 84145; 84484; 85025; 85610; 85652; 85730; 86140; 86850; 86900; 86901; 87040; 87070; 87081; 87086; 87088; 87804; 93005; 99285; J2405; J2550; J3010; J3475; J7030; Q9967

== ENCOUNTER 2018-03-26 13:11 | Observation (INO) | payer BC, OTHER ==
--- OUTSIDE RECORDS SUMMARY | 2018-03-26 13:13 | XMS REPORT ---
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
--- OUTSIDE RECORDS SUMMARY | 2018-03-26 13:13 | XMS REPORT | Clinical Summary ---
:1980 Author Organization [facility] Address [address] [place] [address] Care Team Providers Name Role Phone Anitra Estrada [facility] ED MANAGER-C Primary Care Provider Allergies Active Allergy Reactions Severity Noted Date Comments Baclofen 10/05/2015 Cephalosporins Anaphylaxis High 10/05/2015 Meperidine 10/05/2015 Hydromorphone 10/05/2015 Levofloxacin 10/05/2015 Morphine 01/14/2016 Opioids - Morphine Analogues 10/05/2015 Promethazine 10/05/2015 Current Medications Prescription Sig. Disp. Refills Start Date End Date Status rosuvastatin Take 20 mg by Active (CRESTOR) 20 MG mouth daily. tablet lamoTRIgine Take 100 mg Active (LaMICtal) 100 MG by mouth tablet daily. zolpidem (AMBIEN) 10 Take 5 mg by Active mg tablet mouth nightly as needed for sleep. amLODIPine (NORVASC) Take 10 mg by Active 10 mg tablet mouth daily. pregabalin (LYRICA) Take 200 mg Active 200 MG capsule by mouth 3 (three) times a day. DOMPERIDONE, BULK, 1 tablet 3 Active MISC (three) times a day. febuxostat (ULORIC) Take 1 tablet 30 tablet 11 09/03/2017 09/03/2018 Active 40 mg (40 mg total) tabletIndications: by mouth Polyarticular gout, daily. Other secondary osteoarthritis of both feet, Renal insufficiency, Hyperuricemia citalopram (CeleXA) Take 40 mg by 0 01/09/2018 Active 40 MG tablet mouth daily. melatonin 3 mg Take by Active tablet mouth. febuxostat (ULORIC) Take 1 tablet 30 tablet 2 02/05/2017 05/06/2017 40 mg (40 mg total) tabletIndications: by mouth Hyperuricemia, Acute daily for 90 gout of multiple days. sites, unspecified cause febuxostat (ULORIC) Take 40 mg by 05/09/2017 Discontinued 40 mg tablet mouth daily. escitalopram Take 20 mg by 01/16/2018 Discontinued (LEXAPRO) 20 MG mouth daily. tablet febuxostat (ULORIC) Take 1 tablet 30 tablet 3 05/09/2017 09/03/2017 Discontinued 40 mg tablet (40 mg total) by mouth daily. oseltamivir TAKE ONE 0 09/10/2017 01/16/2018 Discontinued (TAMIFLU) 75 MG CAPSULE BY capsule MOUTH EVERY 12 HOURS FOR 5 DAYS Active Problems Problem Noted Date Abdominal pain, generalized 12/29/2016 Generalized abdominal pain 12/26/2016 Overview: Added automatically from request for surgery [id number] Polyarticular gout 06/29/2016 Hyperuricemia 06/29/2016 Renal insufficiency [...] Encounters Date Type Specialty Care Team Description 01/16/2018 Office Visit Gastroenterology Josette Larios, Gastroenteritis ( Primary Dx); DO Gastroparesis; Incontinence of feces, unspecified fecal incontinence type 12/26/2017 Telephone Gastroenterology Gaby Mitchell MA 12/11/2017 Office Visit Ophthalmology Ras Marr, Multiple myeloma, remission status unspecified (Primary Dx); Unspecified visual field defects 12/11/2017 Orders Only Ophthalmology Ras Marr MD 12/05/2017 Office Visit Gastroenterology Josette Larios, Gastroparesis ( Primary Dx); DO Incontinence of feces, unspecified fecal incontinence type [...] Clara Stephens MD 09/19/2017 Office Visit Gastroenterology Josette Larios, Gastroparesis ( Primary Dx); DO Incontinence of feces, unspecified fecal incontinence type 09/03/2017 Office Visit Rheumatology Elba Parekh MD Polyarticular gout ( Primary Dx); Other secondary osteoarthritis of both feet; Renal insufficiency; Hyperuricemia 09/02/2017 Refill Rheumatology Elba Parekh MD 06/13/2017 Office Visit Gastroenterology Josette Larios, Gastroparesis ( Primary DO Dx) 05/09/2017 Office Visit Gastroenterology Josette Larios, Generalized abdominal pain (Primary Dx); DO Gastroparesis; Other chronic pancreatitis; Constipation, unspecified constipation type 05/09/2017 Refill Rheumatology Lacey Salazar MA after 03/25/2017 Family History Patient is adopted Medical History Relation Name Comments No Known Problems Brother No Known Problems Father No Known Problems Maternal Aunt No Known Problems Maternal Grandfather No Known Problems Maternal Grandmother No Known Problems Maternal Uncle No Known Problems Mother No Known Problems Paternal Aunt No Known Problems Paternal Grandfather No Known Problems Paternal Grandmother No Known Problems Paternal Uncle No Known Problems Sister Relation Name Status Comments Brother Father Maternal Aunt Maternal Grandfather Maternal Grandmother Maternal Uncle Mother Paternal Aunt Paternal Grandfather Paternal Grandmother Paternal Uncle Sister Social History Tobacco Use Types Packs/Day Years Used Date Never Smoker Smokeless Tobacco: Never Used Alcohol Use Drinks/Week oz/Week Comments No Sex Assigned at Date Recorded Not on file Last Filed Vital Signs Vital Sign Reading Time Taken Blood Pressure 89/57 01/16/2018 1:19 PM CDT Pulse 80 01/16/2018 1:19 PM CDT Temperature 37.2 C (98.9 F) 09/03/2017 4:37 PM MEDICAL PHYSICS PROFESSOR Respiratory Rate - - Oxygen Saturation 94% 09/03/2017 4:37 PM MEDICAL PHYSICS PROFESSOR Inhaled Oxygen Concentration - - Weight 98.9 kg (218 lb) 01/16/2018 1:19 PM CDT Height 162.6 cm (5' 4") 12/11/2017 7:50 AM CDT Body Mass Index 37.42 01/16/2018 1:19 PM CDT Plan of Treatment Date Type Specialty Care Team Description 04/26/2018 Office Visit Rheumatology Elba Parekh MD [address] [facility] [address] [place] [address] [phone] 05/07/2018 Office Visit Ophthalmology Ras Marr MD [address] [facility] [address] [place] [address] [phone] 06/05/2018 Office Visit Gastroenterology Josette Larios DO [address] [facility] [address] [place] [address] [phone] Health Maintenance Due Date Last Done Comments INFLUENZA VACCINE 03/20/2018 Procedures Procedure Name Priority Date/Time Associated Diagnosis Comments BASIC METABOLIC PANEL Routine 01/16/2018 1:59 Gastroenteritis Results for this PM CDT procedure are in the results section. VASCULAR ENDOTHELIAL Routine 12/11/2017 10:25 Results for this GROWTH FACTOR (VEGF) AM CDT procedure are in the results section. AUTOMATED VISUAL Routine 12/11/2017 8:45 Multiple myeloma, Results for this FIELD, EXTENDED - OU - AM CDT remission status procedure are in BOTH EYES unspecified the results section. OCT, OPTIC NERVE - OU Routine 12/11/2017 8:45 Multiple myeloma, - BOTH EYES AM CDT remission status unspecified MRI BRAIN & ORBIT W WO STAT 10/11/2017 2:20 Unspecified visual Results for this CONTRAST PM MEDICAL PHYSICS PROFESSOR field defects procedure are in Multiple myeloma, the results remission status section. unspecified Diplopia Exophthalmos THYROID STIMULATING Routine 09/27/2017 9:18 Results for this HORMONE AM MEDICAL PHYSICS PROFESSOR procedure are in the results section. CREATININE LEVEL Routine 09/27/2017 9:18 Unspecified visual Results for this AM MEDICAL PHYSICS PROFESSOR field defects procedure are in Multiple myeloma, the results remission status section. unspecified Diplopia Exophthalmos BUN LEVEL Routine 09/27/2017 9:18 Unspecified visual Results for this AM MEDICAL PHYSICS PROFESSOR field defects procedure are in Multiple myeloma, the results remission status section. unspecified Diplopia Exophthalmos T4, FREE Routine 09/27/2017 9:18 Unspecified visual Results for this AM MEDICAL PHYSICS PROFESSOR field defects procedure are in Multiple myeloma, the results remission status section. unspecified Diplopia Exophthalmos T3, FREE Routine 09/27/2017 9:18 Unspecified visual Results for this AM MEDICAL PHYSICS PROFESSOR field defects procedure are in Multiple myeloma, the results remission status section. unspecified Diplopia Exophthalmos THYROID PEROXIDASE Routine 09/27/2017 9:18 Unspecified visual Results for this ANTIBODY AM MEDICAL PHYSICS PROFESSOR field defects procedure are in Multiple myeloma, the results remission status section. unspecified Diplopia Exophthalmos THYROID STIMULATING Routine 09/27/2017 9:18 Unspecified visual Results for this IMMUNOGLOBULIN AM MEDICAL PHYSICS PROFESSOR field defects procedure are in Multiple myeloma, the results remission status section. unspecified Diplopia Exophthalmos ACETYLCHOLINE RECEPTOR Routine 09/27/2017 9:18 Unspecified visual Results for this MODULATING AB AM MEDICAL PHYSICS PROFESSOR field defects procedure are in Multiple myeloma, the results remission status section. unspecified Diplopia Exophthalmos ACETYLCHOLINE RECEPTOR Routine 09/27/2017 9:18 Unspecified visual Results for this BLOCKING AB AM MEDICAL PHYSICS PROFESSOR field defects procedure are in Multiple myeloma, the results remission status section. unspecified Diplopia Exophthalmos ACETYLCHOLINE RECEPTOR Routine 09/27/2017 9:18 Unspecified visual Results for this BINDING AB AM MEDICAL PHYSICS PROFESSOR field defects procedure are in Multiple myeloma, the results remission status section. unspecified Diplopia Exophthalmos OCT, OPTIC NERVE - OU Routine 09/27/2017 8:19 Unspecified visual Results for this - BOTH EYES AM MEDICAL PHYSICS PROFESSOR field defects procedure are in Multiple myeloma, the results remission status section. 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 Renal insufficiency Hyperuricemia COMPREHENSIVE Routine 09/19/2017 11:15 Polyarticular gout Results for this METABOLIC PANEL AM MEDICAL PHYSICS PROFESSOR Other secondary procedure are in osteoarthritis of both the results feet section. Renal insufficiency Hyperuricemia MRI HEAD EXTERNAL Routine 08/21/2017 7:31 Results for this STUDY PM MEDICAL PHYSICS PROFESSOR procedure are in the results section. MRI HEAD EXTERNAL Routine 08/17/2017 8:04 Results for this STUDY PM MEDICAL PHYSICS PROFESSOR procedure are in the results section. MRI HEAD EXTERNAL Routine 08/17/2017 6:59 Results for this STUDY PM MEDICAL PHYSICS PROFESSOR procedure are in the results section. after 03/25/2017 Results Basic metabolic panel (01/16/2018 1:59 PM) Glucose 151 (H) 65 - 139 mg/dL [facility] Comment: [place] Non-fasting reference interval BUN, whole blood 24 7 - 25 mg/dL [facility] [place] Creatinine 1.49 (H) 0.60 - 1.35 mg/dL [facility] [place] EGFR Non-Afr. Wallisian 59 (L) > OR=60 [facility] mL/min/1.73m2 [place] EGFR 68 > OR=60 [facility] mL/min/1.73m2 [place] BUN/creatinine ratio 16 6 - 22 (calc) [facility] [place] Sodium 142 135 - 146 mmol/L [facility] [place] Potassium 4.7 3.5 - 5.3 mmol/L [facility] [place] Chloride 105 98 - 110 mmol/L [facility] [place] CO2 28 20 - 31 mmol/L [facility] [place] Calcium 9.6 8.6 - 10.3 mg/dL [facility] [place] Specimen Blood Narrative Performed At FASTING:NO [facility] FASTING: NO Resulting Agency Comment Performing Organization Information: Site ID: [id number] Name: [facility] Address: [address] [place] [phone] Director: Maeve Barbour Performing Organization Address City/[facility] Cent[facility] Phone Number [facility] [place] [address] [place] [phone] Vascular endothelial growth factor (VEGF) (12/11/2017 10:25 AM) Vascular endothelial 34 31 - 86 pg/mL [facility] growth factor Comment: DI[facility]NOSTICS/APX [facility] This test was performed using a kit that has not been cleared or approved by the FDA. The analytical performance characteristics of this test have been determined by [facility]. This test should not be used for diagnosis without confirmation by other medically established means. Narrative Performed At FASTING: UNKNOWN [facility] Resulting Agency Comment Performing Organization Information: Site ID: [id number] Name: [facility] [facility], Address: [address] [place] [phone] Director: Narcisa Victor MD,PhD,IONA Performing Organization Address [facility] [address]/[facility] Centercodc Phone Number [employer] [address] [place] [address] [phone] [facility] Automated Visual Field, Extended - OU (12/11/2017 8:45 AM) Narrative Performed At Right Eye Threshold was 24-2. Strategy was RISA. Left Eye Threshold was 24-2. OCT, Optic Nerve - OU (12/11/2017 8:45 AM) Narrative Performed At MRI Brain & Orbit W Wo Contrast (10/11/2017 2:20 PM) Narrative Performed At EXAMINATION: MRI BRAIN & ORBIT W WO CONTRAST HM [facility] CLINICAL HISTORY: H53.40 Unspecified visual field defects, [...] commonly representing chronic microvascular ischemic change. No abn ormal intracranial enhancement. Basal cisterns are clear. Major intracranial flow voids are maintained. Mild scattered paranasal sinus mucosal thickening. Sagittal T1 images shows no midline mass lesion. The craniocervical junction is intact. MRI ORBITS: High resolution images of the orbits demonstrate exophthalmus bilaterally. No orbital mass. No abnormal signal of the optic chiasm or prechiasmatic optic nerves and no abnormal enhancement. The globes a re normal in appearance. Extraocular muscles are normal in appearance. IMPRESSION: 1. No acute intracranial abnormality. 2. Bilateral exophthalmus. Otherwise unremarkable appearance of the orbits. [facility]-[id number] Procedure Note Hm Interface, Radiology Results Incoming - 10/11/2017 2:51 PM MEDICAL PHYSICS PROFESSOR EXAMINATION: MRI BRAIN & ORBIT W WO [...] exophthalmus. Otherwise unremarkable appearance of the orbits. [facility]-[id number] Performing Organization Address City/State/Zipcode Phone Number ROBERT [address] [place] [address] Thyroperoxidase antibody (09/27/2017 9:18 AM) Thyroperoxidase Ab <1 <9 IU/mL [facility] Specimen Blood Resulting Agency Comment Performing Organization Information: Site ID: [id number] Name: [facility] Address: [address] [place] [address] Director: Dr. Yury Gómez Performing Organization Address [facility] [address]/Zipcode Phone Number [facility] [address] [place] [address] Acetylcholine receptor blocking Ab (09/27/2017 9:18 AM) Acetylcholine receptor blocking <15 <15 % of inhibition [facility]/ TAN Ab [facility] Specimen Blood Resulting Agency Comment Performing Organization Information: Site ID: [id number] Name: [facility], Address: [address] [place] [phone] Director: Marcello Fernandes MD,PhD Performing Organization Address [facility] Phone Number [facility]/TAN[address] [address] [facility] Acetylcholine receptor modulating Ab (09/27/2017 9:18 AM) Acetylcholine receptor <1 % binding inhib [facility] modulating Ab Comment: DIAGNOSTICS/TAN Reference Range: [facility] < 32% BINDING INHIBITION This test was developed and its analytical performance characteristics have been determined by [facility]. It has not been cleared or approved by FDA. This assay has been validated pursuant to the CLIA regulations and is used for clinical purposes. Specimen Blood Resulting Agency Comment Performing Organization Information: Site ID: [id number] Name: [facility], Address: [address] [place] [phone] Director: Marcello Frenandes MD,PhD Performing Organization Address [facility] [address]/Zipcode Phone Number [facility] [address] [place] [phone] [facility] Acetylcholine receptor binding Ab (09/27/2017 9:18 AM) Acetylcholine receptor <0.30 nmol/L [facility] binding Ab Comment: DIAGNOSTICS/TAN [facility] Reference Ranges for Acetylcholine Receptor Binding Antibody: Negative: < or=0.30 nmol/L Equivocal:0.31-0.49 nmol/L Positive: > or=0.50 nmol/L Specimen Blood Resulting Agency Comment Performing Organization Information: Site ID: [id number] Name: [facility] [facility], Address: [address] [place] [phone] Director: Marcello Fernandes MD,PhD Performing Organization Address [facility] Phone Number [facility]/APX [phone] [place] [phone] [facility] Thyroid stimulating immunoglobulin (09/27/2017 9:18 AM) Thyroid stimulating <89 <140 % baseline [facility] immunoglobulin Comment: DIAGNOSTICS/APX [facility] Thyroid stimulating immunoglobulins (TSI) can engage the [...] mIU/mL (usually after approximately 20-weeks gestation). Specimen Blood Resulting Agency Comment Performing Organization Information: Site ID: [id number] Name: [facility] [facility], Address: [address] [place] [phone] Director: Marcello Fernnades MD,PhD Performing Organization Address [facility] [address]/[facility] Centercodc Phone Number [facility]X [address] [place] [address] [facility] BUN level (09/27/2017 9:18 AM) BUN, whole blood 25 7 - 25 mg/dL [facility] [employer] [place] Specimen Blood Resulting Agency Comment Performing Organization Information: Site ID: [facility] Name: [facility] Address: [address] [place] [phone] Director: Maeve Barbour MD Performing Organization Address [facility] Phone Number [facility] [address] [address] T3, free (09/27/2017 9:18 AM) T3, free 3.7 2.3 - 4.2 pg/mL [facility] [employer] [place] Specimen Blood Resulting Agency Comment Performing Organization Information: Site ID: [facility] Name: [facility] Address: [address] [place] [phone] Director: Maeve Barbour MD Performing Organization Address [facility] [address]/[facility] Number [facility] [address] [address] Thyroid stimulating hormone (09/27/2017 9:18 AM) TSH 2.83 0.40 - 4.50 mIU/L [facility] [employer] [place] Resulting Agency Comment Performing Organization Information: Site ID: [facility] Name: [facility] Address: [address] [place] [phone] Director: Maeve Barbour MD Performing Organization Address [facility] [address]/[facility] Number [facility] [place] [phone] T4, free (09/27/2017 9:18 AM) T4, free 1.5 0.8 - 1.8 ng/dL [facility] [employer] [place] Specimen Blood Resulting Agency Comment Performing Organization Information: Site ID: [id number] Name: [facility] Address: [address] [place] [phone] Director: Maeve Barbour MD Performing Organization Address [facility] [address]/[facility] Centercode Phone Number [facility] [address] [address] Creatinine level (09/27/2017 9:18 AM) Creatinine 1.11 0.60 - 1.35 mg/dL [facility] [employer] [place] EGFR Non-Afr. Wallisian 84 > OR=60 mL/min/1.73m2 [facility] EGFR 98 > OR=60 mL/min/1.73m2 [facility] Specimen Blood Resulting Agency Comment Performing Organization Information: Site ID: [id number] Name: [facility] [employer] [facility] Lab Address: [address] [place] [phone] Director: Maeve Barbour MD Performing Organization Address [facility] [address]/[facility] Centercode Phone Number [facility] [address] [phone] OCT, Optic Nerve - OU (09/27/2017 8:19 AM) Narrative Performed At Right Eye Reliability was good. Temporal thickness was normal. Superior thickness was normal. Nasal thickness was normal. Inferior thickness was normal. Left Eye Reliability was good. Temporal thickness was normal. Superior thickness was normal. Nasal thickness was normal. Inferior thickness was normal. Notes G 79 G 74 Automated Visual Field, Extended - OU (09/27/2017 8:19 AM) Narrative Performed At Right Eye Threshold was 24-2. Strategy was RISA. Reliability was good. -8.09. Findings include superior arcuate defect. Left Eye Threshold was 24-2. Strategy was RISA. Reliability was good. -13.21. Findings include superior altitudinal defect, inferior arcuate defect. Uric acid level (09/19/2017 11:15 AM) Uric acid 5.3 4.0 - 8.0 mg/dL [facility] Comment: Therapeutic target for gout patients: <6.0 mg/dL Specimen Blood Narrative Performed At FASTING:YES [facility] FASTING: YES Resulting Agency Comment Performing Organization Information: Site ID: [id number] Name: [facility] [employer] [facility] Address: [address] [place] [phone] Director: Maeve Barbour MD Performing Organization Address [facility] [address]/Zipcode Phone Number [facility] [address] [address] Comprehensive metabolic panel (09/19/2017 11:15 AM) Glucose 82 65 - 99 mg/dL [facility] Comment: [place] Fasting reference interval BUN, whole blood 27 (H) 7 - 25 mg/dL [facility] Creatinine 1.41 (H) 0.60 - 1.35 mg/dL [facility] [place] EGFR Non-Afr. Wallisian 63 > OR=60 [facility] mL/min/1.73m2 [place] EGFR 73 > OR=60 [facility] mL/min/1.73m2 [place] BUN/creatinine ratio 19 6 - 22 (calc) [facility] [place] Sodium 138 135 - 146 mmol/L [facility] [place] Potassium 4.8 3.5 - 5.3 mmol/L [facility] [place] Chloride 99 98 - 110 mmol/L [facility] [place] CO2 33 (H) 20 - 31 mmol/L [facility] [place] Calcium 10.1 8.6 - 10.3 mg/dL [facility] [place] Protein 7.6 6.1 - 8.1 g/dL [facility] [place] Albumin, S 4.4 3.6 - 5.1 g/dL [facility] [place] Globulin, total 3.2 1.9 - 3.7 g/dL [facility] (calc) [place] Albumin/globulin ratio 1.4 1.0 - 2.5 (calc) [facility] [place] Total bilirubin 0.5 0.2 - 1.2 mg/dL [facility] [place] Alkaline phosphatase 70 40 - 115 U/L [facility] [place] AST 28 10 - 40 U/L [facility] [place] ALT 40 9 - 46 U/L [facility] [place] Specimen Blood Narrative Performed At FASTING:YES [facility] FASTING: YES Resulting Agency Comment Performing Organization Information: Site ID: [id number] Name: [facility] Address: [address] [place] [phone] Director: Maeve Barbour MD Performing Organization Address City/State/[facility] [facility] Phone Number [facility] [address] [address] MRI Head External Study (08/21/2017 7:31 PM)Only the most recent of3 resultswithin the time period is included. Narrative Performed At This exam was not acquired at a [facility] facility and has not been [facility] interpreted by a [facility] Provider.The exam was imported into our imaging system for comparisons purposes. Performing Organization Address City/State/Zipcode Phone Number [place] [employer] [address] [place] [address] after 03/25/2017 Insurance Payer Benefit Plan / Group Subscriber ID Type Phone Address BCBS ANTHNEELIMA BLUE CROSS xxxxxxxxxxxx PPO AMERIGROUP AMERIGROUP STAR+PLUS RYNE xxxxxxxxx O
[2018-03-26 14:29] LABS: Protime INR 1.09
[2018-03-26 14:32] LABS: Absolute Lymphocytes (CBC) 2.1 K/uL (0.7-4.9); Absolute Monocytes 0.8 K/uL (0.1-1.3); Basophils % 0.9 % (0-1.3); Eosinophils % 4.6 % (0-4.4); Hematocrit 39.9 % (39.6-49.0); Lymphocytes % 29.2 % (15.3-44.8); MCH 28.7 pg (27.0-35.0); MCV 85.3 fL (80-100); MPV 11.6 fL (7.6-11.3); Monocytes % 11.1 % (3.3-12.3); RBC Red Blood Cell Count 4.68 M/uL (4.33-5.43)
[2018-03-26] MEDS ORDERED: NA CHLORIDE 0.9% 1,000 ML ONE (14:40)
[2018-03-26] MEDS ORDERED: ASPIRIN 81 MG CHEWABLE TABLET ONE (14:40)
[2018-03-26 14:45] LABS: Albumin 3.7 g/dL (3.4-5.0); Bilirubin Direct 0.1 mg/dL (0-0.2); Bilirubin Total 0.3 mg/dL (0.2-1.0); Magnesium 1.9 mg/dL (1.8-2.4); Potassium 4.3 mmol/L (3.5-5.1); Protein, Total 8.3 g/dL (6.4-8.2)
--- NOTE | 2018-03-26 15:13 | EDPHYS ---
Physician Documentation [facility] Name: Jose G Perera Age: 37 yrs Sex: Male : 1980 Arrival Date: 03/26/2018 Time: 13:12 Bed 15 Private MD: Anitra Estrada ED Physician Nathan Bass HPI: 03/26 14:55 This 37 yrs old Male presents to ER via Wheelchair with complaints of Chest jr8 Pain. 14:55 The patient or guardian reports chest pain that is located primarily in the substernal jr8 area. The pain radiates to the left arm. Associated signs and symptoms: Pertinent positives: dizziness, lightheadedness, near-syncope. The chest pain is described as a heaviness. Duration: The patient or guardian reports multiple episodes, that are intermittent, that wax and wane. Modifying factors: The symptoms are alleviated by nothing. the symptoms are aggravated by nothing. Severity of pain: At its worst the pain was moderate in the emergency department the pain has improved mildly. The patient has not experienced similar symptoms in the past. The patient has not recently seen a physician. Patient with multiple medical conditions. Stated that he has been experiencing near syncope like episodes for several months. Has been seen by PCP and neurology. Both want him to see fish packer. Has appointment set but has not seen him as of yet. Came to ED today because he started with chest pain, sweating, dizziness last night that has continued through to today . Historical: - Allergies: 13:19 BACLOFEN; hb 13:19 CEPHALOSPORINS; hb 13:19 Demerol; hb 13:19 Dilaudid; hb 13:19 Levaquin; hb 13:19 Morphine; hb 13:19 Phenergan; hb - Home Meds: 13:19 Lamictal 100 mg Oral tab 1 tab once daily [Active]; gout metication [Active]; Celexa 40 hb mg Oral tab 1 tab once daily [Active]; 16:23 Lyrica 300 mg Oral 2 times per day [Active]; Ambien 5 mg oral tab [Active]; citalopram rb1 40 mg tab 1 tab once daily [Active]; Melatonin Oral [Active]; Crestor 20 mg oral tab 1 tab once daily [Active]; Norvasc 5 mg oral tab [Active]; CoQ-10 100 mg oral cap 2 TABS daily [Active]; magnesium oxide 400 mg Oral cap 400 mg daily [Active]; Fish Oil 1,000 mg oral cap daily [Active]; loratadine 10 mg oral tab 1 tab once daily [Active]; Lomotil oral oral [Active]; Vitamin D Oral 1,000 unit daily [Active]; 16:24 DOMPERINDOME 10 MG before meals [Active]; rb1 16:23 Uloric 40 mg oral tab 1 tab once daily [Active]; rb1 - PMHx: 13:19 Hyperlipidemia; hb - PSHx: 13:19 Bowel resection; Hernia repair; Appendectomy; Hypospadius repair; Exploratory lap; hb - Immunization history:: Adult Immunizations up to date. - Social history:: Smoking status: Patient/guardian denies using tobacco. - Ebola Screening: : No symptoms or risks identified at this time. ROS: 14:55 Eyes: Negative for injury, pain, redness, and discharge, ENT: Negative for injury, jr8 pain, and discharge, Neck: Negative for injury, pain, and swelling, Respiratory: Negative for shortness of breath, cough, wheezing, and pleuritic chest pain, Abdomen/GI: Negative for abdominal pain, nausea, vomiting, diarrhea, and constipation, Back: Negative for injury and pain, MS/Extremity: Negative for injury and deformity, Skin: Negative for injury, rash, and discoloration. 14:55 Cardiovascular: Positive for chest pain, Negative for edema, orthopnea, palpitations, paroxysmal nocturnal dyspnea. 14:55 Neuro: Positive for dizziness, near syncope, visual changes. Exam: 14:55 Eyes: Pupils equal round and reactive to light, extra-ocular motions intact. Lids and jr8 lashes normal. Conjunctiva and sclera are non-icteric and not injected. Cornea within normal limits. Periorbital areas with no swelling, redness, or edema. ENT: Nares patent. No nasal discharge, no septal abnormalities noted. Tympanic membranes are normal and external auditory canals are clear. Oropharynx with no redness, swelling, or masses, exudates, or evidence of obstruction, uvula midline. Mucous membranes moist. Neck: Trachea midline, no thyromegaly or masses palpated, and no cervical lymphadenopathy. Supple, full range of motion without nuchal rigidity, or vertebral point tenderness. No Meningismus. Cardiovascular: Regular rate and rhythm with a normal S1 and S2. No gallops, murmurs, or rubs. Normal PMI, no JVD. No pulse deficits. Respiratory: Lungs have equal breath sounds bilaterally, clear to auscultation and percussion. No rales, rhonchi or wheezes noted. No increased work of breathing, no retractions or nasal flaring. Abdomen/GI: Soft, non-tender, with normal bowel sounds. No distension or tympany. No guarding or rebound. No evidence of tenderness throughout. Back: No spinal tenderness. No costovertebral tenderness. Full range of motion. Skin: Warm, dry with normal turgor. Normal color with no rashes, no lesions, and no evidence of cellulitis. MS/ Extremity: Pulses equal, no cyanosis. Neurovascular intact. Full, normal range of motion. Neuro: Awake and alert, GCS 15, oriented to person, place, time, and situation. Cranial nerves II-XII grossly intact. Motor strength 5/5 in all extremities. Sensory grossly intact. Cerebellar exam normal. Normal gait. Vital Signs: 13:16 BP 91 / 52; Pulse 104; Resp 16; Temp 98.1; Pulse Ox 100% on R/A; Pain 6/10; hb 14:00 BP 103 / 54; Pulse 70; Resp 15; Pulse Ox 96% on R/A; rb1 15:00 BP 103 / 50; Pulse 60; Resp 13; Pulse Ox 96% on R/A; rb1 16:00 BP 108 / 63; Pulse 61; Resp 12; Pulse Ox 96% on R/A; rb1 16:03 BP 108 / 63 Supine; Pulse 62; Resp 16; Pulse Ox 96% on R/A; dh3 16:05 BP 94 / 65 Sitting; Pulse 62; Resp 15; Pulse Ox 100% on R/A; dh3 16:07 BP 86 / 61 Standing; Pulse 63; Resp 15; Pulse Ox 97% on R/A; dh3 16:40 BP 99 / 67; Pulse 60; Resp 13; Pulse Ox 97% on R/A; rb1 MDM: 13:24 Patient medically screened. jr8 14:57 Data reviewed: vital signs, nurses notes, lab test result(s), EKG, radiologic studies, jr8 plain films, and as a result, I will admit patient. Data interpreted: Pulse oximetry: on room air is 100 %. Interpretation: normal. Counseling: I had a detailed discussion with the patient and/or guardian regarding: the historical points, exam findings, and any diagnostic results supporting the discharge/admit diagnosis, lab results, radiology results, the need for further work-up and treatment in the hospital. 03/26 13:24 Order name: Basic Metabolic Panel [facility] 03/26 13:24 Order name: CBC with Diff 03/26 13:24 Order name: LFT's 03/26 13:24 Order name: Magnesium [facility] 03/26 13:24 Order name: NT PRO-BNP [facility] 03/26 13:24 Order name: PT-INR [facility] 03/26 13:24 Order name: Troponin (emerg Dept Use Only) [facility] 03/26 14:31 Order name: Protime (+INR); Complete Time: 14:52 EDMS 03/26 14:33 Order name: CBC with Automated Diff; Complete Time: 14:52 EDMS 03/26 14:45 Order name: Basic Metabolic Panel; Complete Time: 14:52 EDMS 03/26 14:45 Order name: Liver (Hepatic) Function; Complete Time: 14:52 EDMS 03/26 14:45 Order name: NT PRO-BNP; Complete Time: 14:52 EDMS 03/26 14:45 Order name: Magnesium; Complete Time: 14:52 EDMS 03/26 14:49 Order name: Troponin (Emerg Dept Use Only); Complete Time: 14:52 EDMS 03/26 13:24 Order name: XRAY Chest (1 view) [facility] 03/26 13:24 Order name: EKG; Complete Time: 13:25 03/26 13:24 Order name: Cardiac monitoring; Complete Time: 14:33 03/26 13:24 Order name: EKG - Nurse/Tech; Complete Time: 17:26 03/26 13:24 Order name: IV Saline Lock; Complete Time: 14:33 03/26 13:24 Order name: Labs collected and sent; Complete Time: 14:33 03/26 13:24 Order name: O2 Per Protocol; Complete Time: 14:33 03/26 13:24 Order name: O2 Sat Monitoring; Complete Time: 14:33 03/26 14:57 Order name: Orthostatics; Complete Time: 16:12 8 03/26 15:23 Order name: RAD; Complete Time: 15:23 EDMS 03/26 16:27 Order name: Lactate; Complete Time: 16:40 EDMS 03/26 16:45 Order name: Procalcitonin; Complete Time: 16:49 EDMS 03/26 16:45 Order name: US; Complete Time: 16:49 EDMS Administered Medications: 14:36 Drug: NS 0.9% 1000 ml Route: IV; Rate: 1000 ml; Site: right antecubital; rb1 15:52 Follow up: IV Status: Completed infusion rb1 14:36 Drug: Aspirin Chewable Tablet 324 mg Route: PO; rb1 15:10 Follow up: Response: No adverse reaction rb1 Disposition: 19:08 Co-signature as Attending Physician, Nathan Bass MD. rn Disposition: 03/26/18 15:13 Hospitalization ordered by Abisai Roy for Observation. Preliminary diagnosis are Chest pain, unspecified, Near Syncope. - Bed requested for Telemetry/MedSurg (observation). - Status is Observation. ss - Condition is Stable. - Problem is new. - Symptoms have improved. UTI on Admission? No Signatures: Dispatcher [employer] Hazel Jane RN RN Nathan Bass MD MD rn Smirch, Shelby, RN RN Amando Arrieta PA PA jr8 Lesly Arechiga, RN RN rb1 Moni Key RN RN Corrections: (The following items were deleted from the chart) 15:59 15:13 Hospitalization Ordered by Abisai Roy DO for Observation. Preliminary dw diagnosis is Chest pain, unspecified; Near Syncope. Bed requested for Telemetry/MedSurg (observation). Status is Observation. Condition is Stable. Problem is new. Symptoms have improved. UTI on Admission? No. jr8 16:30 13:19 Home Meds: Lyrica 200 mg Oral 3 times per day; [facility] 16:30 13:19 Home Meds: rosuvastatin 20 mg Oral tab 1 tab once daily; rb1 16:30 13:19 Home Meds: Ambien 10 mg Oral tab 1 tab once daily; rb1 17:20 15:59 03/26/2018 15:13 Hospitalization Ordered by Abisai Roy DO for Observation. ss Preliminary diagnosis is Chest pain, unspecified; Near Syncope. Bed requested for Telemetry/MedSurg (observation). Status is Observation. Condition is Stable. Problem is new. Symptoms have improved. UTI on Admission? No. dw
--- NOTE | 2018-03-26 15:13 | ER ---
Nurse's Notes [facility] Name: Jose G Perera Age: 37 yrs Sex: Male : 1980 Arrival Date: 03/26/2018 Time: 13:12 Bed 15 Private MD: Anitra Estrada Diagnosis: Chest pain, unspecified;Near Syncope Presentation: 03/26 13:16 Presenting complaint: Patient states: Substernal chest pain that radiates to left arm hb since last night. Pt also reports he has been having "spells" where he feels like he is going to pass out x 1 month. Transition of care: patient was not received from another setting of care. Onset of symptoms was March 25, 2018. Care prior to arrival: None. 13:16 Method Of Arrival: Wheelchair hb 13:16 Acuity: MANISHA 3 hb 13:25 Risk Assessment: Do you want to hurt yourself or someone else? Patient reports no rb1 desire to harm self or others. Initial Sepsis Screen: Does the patient meet any 2 criteria? No. Patient's initial sepsis screen is negative. Does the patient have a suspected source of infection? No. Patient's initial sepsis screen is negative. Historical: - Allergies: 13:19 BACLOFEN; hb 13:19 CEPHALOSPORINS; hb 13:19 Demerol; hb 13:19 Dilaudid; hb 13:19 Levaquin; hb 13:19 Morphine; hb 13:19 Phenergan; hb - Home Meds: 13:19 Lamictal 100 mg Oral tab 1 tab once daily [Active]; gout metication [Active]; Celexa 40 hb mg Oral tab 1 tab once daily [Active]; 16:23 Lyrica 300 mg Oral 2 times per day [Active]; Ambien 5 mg oral tab [Active]; citalopram rb1 40 mg tab 1 tab once daily [Active]; Melatonin Oral [Active]; Crestor 20 mg oral tab 1 tab once daily [Active]; Norvasc 5 mg oral tab [Active]; CoQ-10 100 mg oral cap 2 TABS daily [Active]; magnesium oxide 400 mg Oral cap 400 mg daily [Active]; Fish Oil 1,000 mg oral cap daily [Active]; loratadine 10 mg oral tab 1 tab once daily [Active]; Lomotil oral oral [Active]; Vitamin D Oral 1,000 unit daily [Active]; 16:24 DOMPERINDOME 10 MG before meals [Active]; rb1 16:23 Uloric 40 mg oral tab 1 tab once daily [Active]; rb1 - PMHx: 13:19 Hyperlipidemia; hb - PSHx: 13:19 Bowel resection; Hernia repair; Appendectomy; Hypospadius repair; Exploratory lap; hb - Immunization history:: Adult Immunizations up to date. - Social history:: Smoking status: Patient/guardian denies using tobacco. - Ebola Screening: : No symptoms or risks identified at this time. Screenin:25 Abuse screen: Denies threats or abuse. Nutritional screening: No deficits noted. rb1 Tuberculosis screening: No symptoms or risk factors identified. Fall Risk No fall in past 12 months (0 pts). Secondary diagnosis (15 points) impaired mobility, IV access (20 points). Ambulatory Aid- Crutches/Cane/Walker (15 pts). Gait- Impaired (20 pts.). Mental Status- Oriented to own ability (0 pts). Total Sandy Fall Scale indicates High Risk Score (45 or more points). Fall prevention measures have been instituted. Side Rails Up X 2 Placed Close to Nursing Station 1:1 Attendant Assigned Frequent Obs/Assessments Occuring Family Present and informed to notify staff if the need to leave the bedside As available patient and family educated on Fall Prevention Program and Strategies. Assessment: 13:25 General: Appears in no apparent distress. comfortable, Behavior is calm, cooperative. rb1 Pain: Complains of pain in anterior aspect of left upper chest Pain radiates to left arm Pain currently is 7 out of 10 on a pain scale. Pain began 1 day ago. Pain comes and goes. Has had this issue off and on for about 6 months. Pain: Complains of pain in right lower quadrant and left lower quadrant. Neuro: Level of Consciousness is awake, alert, obeys commands, Oriented to person, place, time, situation. Neuro: Reports dizziness. Neuro: Reports. Cardiovascular: Capillary refill < 3 seconds is brisk in bilateral fingers. Respiratory: Airway is patent Respiratory effort is even, unlabored, Respiratory pattern is regular, symmetrical. GI: Reports diarrhea. : No signs and/or symptoms were reported regarding the genitourinary system. Derm: Skin is pink, warm \\T\\ dry. 14:22 Reassessment: Patient appears in no apparent distress at this time. No changes from rb1 previously documented assessment. Family at bedside. 15:22 Reassessment: Patient appears in no apparent distress at this time. Patient and/or rb1 family updated on plan of care and expected duration. Pain level reassessed. Patient is alert, oriented x 3, equal unlabored respirations, skin warm/dry/pink. 16:00 Reassessment: Called lab and spoke to Jeanette to see if they can come and draw the rb1 blood cultures because the pt. is a hard stick. She stated, "We will take care of it.". 16:08 Reassessment: Pt. went US. rb1 16:35 Reassessment: Called to give report and was left on hold. rb1 16:39 Reassessment: Patient appears in no apparent distress at this time. Patient and/or rb1 family updated on plan of care and expected duration. Pain level reassessed. Patient is alert, oriented x 3, equal unlabored respirations, skin warm/dry/pink. 16:48 Reassessment: Gave report to EMRE Mendoza. Information from the [facility] was given. All rb1 questions asked and answered. 17:15 Reassessment: Patient appears in no apparent distress at this time. No changes from rb1 previously documented assessment. Pt. is waiting to be transported to the floor. Updated on POC. Vital Signs: 13:16 BP 91 / 52; Pulse 104; Resp 16; Temp 98.1; Pulse Ox 100% on R/A; Pain 6/10; hb 14:00 BP 103 / 54; Pulse 70; Resp 15; Pulse Ox 96% on R/A; rb1 15:00 BP 103 / 50; Pulse 60; Resp 13; Pulse Ox 96% on R/A; rb1 16:00 BP 108 / 63; Pulse 61; Resp 12; Pulse Ox 96% on R/A; rb1 16:03 BP 108 / 63 Supine; Pulse 62; Resp 16; Pulse Ox 96% on R/A; dh3 16:05 BP 94 / 65 Sitting; Pulse 62; Resp 15; Pulse Ox 100% on R/A; dh3 16:07 BP 86 / 61 Standing; Pulse 63; Resp 15; Pulse Ox 97% on R/A; dh3 16:40 BP 99 / 67; Pulse 60; Resp 13; Pulse Ox 97% on R/A; rb1 ED Course: 13:12 Patient arrived in ED. as 13:13 Anitra Estrada is Private Physician. as 13:17 Triage completed. hb 13:19 Arm band placed on left wrist. hb 13:23 Lesly Arechiga, RN is Primary Nurse. rb1 13:24 Amando Arrieta PA is PHCP. jr8 13:24 Nathan Bass MD is Attending Physician. jr8 13:25 Patient has correct armband on for positive identification. Bed in low position. Call rb1 light in reach. Side rails up X 1. bus monitor on. Pulse ox on. NIBP on. Warm blanket given. 13:25 Patient maintains SpO2 saturation greater than 95% on room air. rb1 13:38 EKG done, by phlebotomy tech. reviewed by Amando HUNT. sm3 14:20 Inserted saline lock: 22 gauge in right antecubital area, using aseptic technique. ss Blood collected. 14:59 X-ray completed. Portable x-ray completed in exam room. Patient tolerated procedure jb2 well. 15:12 Abisai Roy DO is Hospitalizing Provider. jr8 16:26 Ultrasound completed. Patient tolerated well. Patient taken to ultrasound. via lc3 wheelchair. 16:28 Patient moved back from ultrasound. lc3 17:20 No provider procedures requiring assistance completed. Patient admitted, IV remains in rb1 place. Administered Medications: 14:36 Drug: NS 0.9% 1000 ml Route: IV; Rate: 1000 ml; Site: right antecubital; rb1 15:52 Follow up: IV Status: Completed infusion rb1 14:36 Drug: Aspirin Chewable Tablet 324 mg Route: PO; rb1 15:10 Follow up: Response: No adverse reaction rb1 Outcome: 15:13 Decision to Hospitalize by Provider. jr8 17:20 Patient left the ED. ss 17:20 Admitted to Med/surg accompanied by tech, family with patient, via wheelchair, room rb1 207, with chart, Report called to EMRE Mendoza 17:20 Condition: stable 17:20 Instructed on the need for admit. Signatures: Mendel Galvez jb2 Bernice Herndon Shelby, RN RN Amando Arrieta PA PA jr8 Sherita Cary lc3 Lesly Arechiga, EMRE ANDREA [facility] Moni Key RN RN hb Mercedes Jiménez 3 Lucretia Camarillo 3 Corrections: (The following items were deleted from the chart) 13:19 Home Meds: Lyrica 200 mg Oral 3 times per day; rb1 : Home Meds: rosuvastatin 20 mg Oral tab 1 tab once daily; rb1 : 13:19 Home Meds: Ambien 10 mg Oral tab 1 tab once daily; [facility]
--- NOTE | 2018-03-26 15:22 | RAD REPORT ---
EXAM DESCRIPTION: [place] Single View03/26/2018 3:02 pm CLINICAL HISTORY: Chest pain COMPARISON: December 2017 FINDINGS: The lungs appear clear of acute infiltrate. The heart is borderline enlarged IMPRESSION: No acute abnormalities displayed
[2018-03-26] MEDS ORDERED: ACETAMINOPHEN 500 MG TAB PO PRN (15:31)
[2018-03-26] MEDS ORDERED: ONDANSETRON 4 MG/2 ML VIAL IV PRN (15:31)
--- NOTE | 2018-03-26 15:44 | P.HP ---
Certification for Inpatient Patient admitted to: Observation With expected LOS: <2 Midnights Patient will require the following post-hospital care: None Practitioner: I am a practitioner with admitting privileges, knowledge of patient current condition, hospital course, and medical plan of care. Services: Services provided to patient in accordance with Admission requirements found in Title 42 Section 412.3 of the Code of Federal Regulations Patient History Date of Service: 03/26/18 Primary Care Provider: Nato Estrada NP; GI-Dr. Dubon([facility]); Nephrology-Dr. Tobias; Oncology Reason for admission: Fatigue, chest pain, near syncope History of Present Illness: 29-year-old male with multiple medical problems including multiple myeloma, chronic abdominal pain, gout, chronic renal disease. Patient is brought in by family as the patient is being taking care of by his parents. Patient has education level of a 11-year-old. This is reported by the parents. Parents report that the patient has been having increasing fatigue over the last several days. Parents note that the blood pressure has been low at times. 3 weeks ago he was taking medication for blood pressure. He was taken off at that time. Last week he saw his hand coremaker. Patient had reported some chest pain at that time. There was some indication that nephrology was going to send the patient to Cardiology for evaluation. Patient sees multiple specialists including Nephrology, GI, Oncology, and Rheumatology. Today the patient had pain to the substernal region. It radiates to the left arm. It was associated with some shortness of breath and sweatiness. No fever, chills noted. No significant abdominal pain noted. In the ER patient was evaluated. Initial blood pressure was around 90 systolic. Patient was given IV fluids in the emergency room. Initial workup shows a troponin within normal range. No significant EKG changes noted. Sodium 140, potassium 4.3. Creatinine 2.2 with a GFR 34. Chest x-ray unremarkable. Due to nature the findings the patient was admitted for evaluation. When I saw the patient ER, he appeared comfortable. He had an appear in any distress. Patient was getting IV fluids. Parents were at bedside. Patient does not smoke or drink. He does drink a great deal of caffeine. Patient taking multiple medications for his chronic diseases. Allergies Cephalosporins Allergy (Severe, Verified 12/20/17 23:26) Anaphylaxis baclofen Allergy (Intermediate, Verified 12/20/17 23:26) Itching/Hives/Rash hydromorphone HCl [From Dilaudid] Allergy (Intermediate, Verified 12/20/17 23:26 ) itching redness meperidine HCl [From Demerol] Allergy (Intermediate, Verified 12/20/17 23:26) Itching promethazine HCl [From Phenergan] Allergy (Intermediate, Verified 12/20/17 23:26 ) itching swelling levofloxacin [From Levaquin] Allergy (Unknown, Verified 12/20/17 23:26) itching redness morphine Allergy (Verified 12/20/17 23:26) Hives/Rash Home medications list reviewed: Yes Home Medications: Escitalopram Oxalate [Lexapro] 20 mg PO BEDTIME 09/30/11 Lamotrigine [Lamictal] 100 mg PO BEDTIME 09/30/11 Diclofenac Sodium [Voltaren] 1 chantale TOP QID PRN 04/20/15 Fish Oil/Dha/Epa [Fish Oil 1,200 mg Fish Oil] 1 each PO DAILY 04/20/15 Loratadine [Claritin*] 10 mg PO BEDTIME 04/20/15 Pregabalin [Lyrica] 200 mg PO TID 04/20/15 Ubidecarenone [Co Q-10] 200 mg PO DAILY 04/20/15 Zolpidem Tartrate [Ambien] 10 mg PO BEDTIME 04/20/15 traMADol HCL [Ultram*] 50 mg PO Q6H PRN #30 tab 08/11/15 Magnesium Oxide [Mag 0X*] 400 mg PO DAILY 01/09/16 Amlodipine Besylate 5 mg PO DAILY 12/20/17 Diphenox/Atropine [Lomotil*] 0.5 tab PO BEDTIME 12/20/17 Domperidome 10 mg PO AC 12/20/17 Febuxostat [Uloric] 40 mg PO DAILY 12/20/17 Rosuvastatin Calcium 20 mg PO BEDTIME 12/20/17 Pantoprazole [Protonix Tab] 40 mg PO DAILY #30 tab 12/24/17 - Past Medical/Surgical History Diabetic: No -: Recurrent Diverticulitis -: Hypospadias with history of surgery -: Pancreatitis-chronic -: Mental Retardation (11 Year Old Level) -: Gastroparesis -: Neuropathy -: Autonomic dysfunction -: Right eye aniscoria -: Multiple myeloma, smoldering type -: Obesity -: GERD -: Fatty liver -: Appendectomy -: Bowel resection -: Hernia repair -: Bilateral Eye Sx (Muscle Adjustment) -: Exploratory laparotomy -: Repair of hypospadias Psychosocial/ Personal History: The patient lives with his parents. He is fully dependent on them. - Family History Family History: Reviewed- Non-Contributory - Family History Mother Notes: Mom stated that "he is adopted" - Social History Smoking Status: Never smoker Alcohol use: No CD- Drugs: No Caffeine use: Yes Place of Residence: Home Review of Systems General: Sweats, Weakness, Malaise, As per HPI Eyes: Unremarkable ENT: Unremarkable Respiratory: Unremarkable Cardiovascular: Chest Pain, As per HPI Gastrointestinal: Unremarkable Genitourinary: Unremarkable Musculoskeletal: Unremarkable Integumentary: Unremarkable Neurological: Weakness, As per HPI Lymphatics: Unremarkable Physical Examination - Physical Exam General: Alert, In no apparent distress, Cooperative HEENT: Atraumatic, Normocephalic, Other (Dry mucous membranes) Neck: Supple, No Thyromegaly Respiratory: Clear to auscultation bilaterally, Normal air movement Cardiovascular: Normal pulses, Regular rate/rhythm Gastrointestinal: Normal bowel sounds, Soft and benign, Non-distended, No tenderness, No masses, No rebound, No guarding, Other (Scar to the abdomen) Musculoskeletal: No erythema, No tenderness, No warmth Integumentary: No erythema, No warmth, No cyanosis, Other (Patient wearing boots to the lower extremities) Neurological: Normal speech, Normal strength at 5/5 x4 extr, Normal tone - Studies Laboratory Data (last 24 hrs) 03/26/18 14:10: PT 12.9 H, INR 1.09 03/26/18 14:10: WBC 7.3, Hgb 13.4 L, Hct 39.9, Plt Count 180 03/26/18 14:10: Sodium 140, Potassium 4.3, BUN 29 H, Creatinine 2.20 H, Glucose 85, Magnesium 1.9, Total Bilirubin 0.3, AST 30, ALT 40, Alkaline Phosphatase 79 Assessment and Plan - Problems (Diagnosis) (1) Pre-syncope Current Visit: Yes Status: Acute Plan: Presyncope likely related to dehydration. Acute on chronic renal disease noted. Patient also with low blood pressure. Patient given IV fluid bolus in the ER. Will continue with IV fluids. Blood cultures will be obtained. Will check urine culture. Will review home medications to see if any is medications is causing hypertension. Cardiology to further assess due to his chest pain. Will consult his hand coremaker to further monitor. Will check echocardiogram and carotid Doppler. Once the patient is more stable will check orthostatics. (2) Chest pain Current Visit: Yes Status: Acute Plan: Will continue with cardiac enzymes. Will check echocardiogram. Cardiology consulted to further assess. Suspect dehydration. Qualifiers: Chest pain type: unspecified Qualified Code(s): R07.9 - Chest pain, unspecified (3) Chronic renal disease Current Visit: Yes Status: Acute Plan: Acute on chronic renal disease noted from dehydration. Will continue IV fluids. Will consult Nephrology to further assess. Qualifiers: Chronic kidney disease stage: stage 3 (moderate) Qualified Code(s): N18.3 - Chronic kidney disease, stage 3 (moderate) (4) Fatigue Current Visit: Yes Status: Acute Plan: Likely dehydration. Will continue with IV fluids. Will check thyroid panel. Will check for infection (5) Smoldering multiple myeloma Current Visit: Yes Status: Chronic Plan: Patient is seen by oncology in [place]. Currently stable this time. (6) Depression with anxiety Current Visit: No Status: Chronic Plan: Will need to review and restart home medication. (7) Fatty liver Current Visit: No Status: Chronic Plan: Will check fasting lipid panel. Liver function stable. Patient is seen by GI in [place]. (8) Hyperlipidemia Current Visit: No Status: Chronic Plan: Will check fasting lipid panel. Qualifiers: Hyperlipidemia type: unspecified Qualified Code(s): E78.5 - Hyperlipidemia , unspecified (9) Obesity Current Visit: No Status: Chronic Plan: Will address lifestyle modification and nutrition. Qualifiers: Obesity type: due to excess calories Obesity classification: adult class 2 (BMI 35 - 39.9) Serious obesity comorbidity presence: with serious comorbidity Body mass index: BMI 36.0-36.9 Qualified Code(s): E66.01 - Morbid (severe) obesity due to excess calories; Z68.36 - Body mass index (BMI) 36.0-36.9, adult (10) GERD (gastroesophageal reflux disease) Current Visit: No Status: Suspected Plan: Will start PPI. Qualifiers: Esophagitis presence: esophagitis presence not specified Qualified Code(s) : K21.9 - Gastro-esophageal reflux disease without esophagitis Discharge Plan: Home Plan to discharge in: 24 Hours - Advance Directives Does patient have a Living Will: No Does patient have a Durable POA for Healthcare: No - Code Status/Comfort Care Code Status Assessed: No (Will need to address advanced directives) Time Spent Managing Pts Care (In Minutes): 55
[2018-03-26] MEDS: NA CHLORIDE 0.9% 1,000 ML IV SCH ×2 (16:00→18:25)
--- NOTE | 2018-03-26 16:44 | RAD REPORT ---
EXAM DESCRIPTION: ANN-MARIE - CP - 03/26/2018 4:30 pm CLINICAL HISTORY: near syncope CVA COMPARISON: THYROID PARA PAROTID GLAND dated 12/15/2014 TECHNIQUE: Real-time sonographic evaluation of both carotid systems was performed. Doppler interroga tion was performed with waveform tracing bilaterally. FINDINGS: Normal high resistance waveforms are noted in both external carotid arteries. The common c arotid arteries and internal carotid arteries show normal low resistance waveforms. No significant plaque formation is seen. Peak systolic and end diastolic velocity values and the ICA/ CCA ratios are in the non-hemodynamically significant range. Antegrade flow seen in both vertebral arteries. IMPRESSION: No significant atherosclerotic changes noted. No evidence of a hemodynamically significant stenosis.
--- NOTE | 2018-03-26 18:21 | EKG ---
Test Date: 2018-03-26 Test Time: 13:30:39 Radio Officer: FABBY MEASUREMENT RESULTS: Intervals: Rate: 76 UT: 156 QRSD: 100 QT: 390 QTc: 438 [place]: P: 54 UT: 156 QRS: 55 T: 50 INTERPRETIVE STATEMENTS: Normal sinus rhythm Normal ECG Compared to ECG 12/20/2017 17:54:54 No significant changes Electronically Signed On 03-26-18 18:20:40 CDT by Marcus Leavitt
[2018-03-26] MEDS: TRAMADOL HCL 50 MG TAB PO PRN (18:25)
[2018-03-26 18:48] VITALS: BMI 36.7
[2018-03-26 23:32] LABS: Urine Appearance CLEAR; Urine Bilirubin NEGATIVE (NEG); Urine Blood NEGATIVE (NEG); Urine Color YELLOW; Urine Glucose NEGATIVE (NEG); Urine Protein NEGATIVE (NEG); Urine Urobilinogen 0.2 mg/dL (0.2-1.0); Urine pH 5.5 (5.0-7.0)
[2018-03-26 23:33] LABS: Urine Microscopic Reflex NO UMIC
[2018-03-26 23:57] LABS: CKMB Creatine Kinase MB 1.9 ng/mL (0.3-3.6)
[2018-03-27] MEDS ORDERED: PREGABALIN 150 MG CAP PO ONE ×2 (01:00)
[2018-03-27] MEDS: NA CHLORIDE 0.9% 1,000 ML IV SCH ×2 (02:00→03:35)
[2018-03-27] MEDS: TRAMADOL HCL 50 MG TAB PO PRN (03:37)
[2018-03-27 06:13] LABS: Absolute Lymphocytes (CBC) 2.3 K/uL (0.7-4.9); Absolute Monocytes 0.5 K/uL (0.1-1.3); Absolute Neutrophil 3.3 K/uL (1.8-8.0); Basophils % 0.8 % (0-1.3); Eosinophils % 4.3 % (0-4.4); Lymphocytes % 35.5 % (15.3-44.8); MCH 28.5 pg (27.0-35.0); MPV 10.7 fL (7.6-11.3); RBC Red Blood Cell Count 4.71 M/uL (4.33-5.43)
[2018-03-27 07:09] LABS: Albumin 3.3 g/dL (3.4-5.0); Bilirubin Total 0.3 mg/dL (0.2-1.0); CKMB Creatine Kinase MB 1.7 ng/mL (0.3-3.6); Magnesium 1.9 mg/dL (1.8-2.4); Potassium 4.5 mmol/L (3.5-5.1); Protein, Total 7.6 g/dL (6.4-8.2); Thyroid Stimulating Hormone 1.1 uIU/mL (0.36-3.74)
[2018-03-27] MEDS ORDERED: COLCHICINE 0.6 MG TAB PO PRN (07:27)
[2018-03-27] MEDS ORDERED: PANTOPRAZOLE 40MG TABLET PO SCH (07:30)
[2018-03-27] MEDS ORDERED: REGADENOSON 0.4 MG/5 ML SYR IV ONE (08:03)
[2018-03-27] MEDS: HYDROCODONE/APAP 10/325 TAB PO PRN ×2 (08:14→14:30)
[2018-03-27 08:46] VITALS: O2SAT 95
[2018-03-27] MEDS ORDERED: ASPIRIN EC 81 MG TAB PO SCH (09:00)
[2018-03-27] MEDS ORDERED: PREGABALIN 150 MG CAP PO SCH (09:00)
--- NOTE | 2018-03-27 11:13 | ECHO ---
HEIGHT: 5 ft 4 in WEIGHT: 214 lb 0 oz DATE OF STUDY: 03/27/[address]: 2-DIMENSIONAL: YES M.MODE: YES DOPPLER: YES COLOR FLOW: YES TDS: PORTABLE: DEFINITY: BUBBLE STUDY: DIAGNOSIS: SYNCOPE CARDIAC HISTORY: CATHERIZATION: NO SURGERY: NO PROSTHETIC VALVE: NO PACEMAKER: NO MEASUREMENTS (cm) DIASTOLIC (NORMALS) SYSTOLIC (NORMALS) IVSd 1.2 (0.6-1.2) LA Diam 3.7 (1.9-4.0) LVEF 79% LVIDd 5.0 (3.5-5.7) LVIDs 2.6 (2.0-3.5) %FS 48% LVPWd 1.2 (0.6-1.2) Ao Diam 2.8 (2.0-3.7) 2 DIMENSIONAL ASSESSMENT: RIGHT ATRIUM: NORMAL LEFT ATRIUM: NORMAL RIGHT VENTRICLE: NORMAL LEFT VENTRICLE: NORMAL TRICUSPID VALVE: NORMAL MITRAL VALVE: NORMAL PULMONIC VALVE: NORMAL AORTIC VALVE: NORMAL PERICARDIAL EFFUSION: NONE AORTIC ROOT: NORMAL LEFT VENTRICULAR WALL MOTION: NORMAL. DOPPLER/COLOR FLOW: NORMAL. COMMENTS: NORMAL 2D ECHOCARDIOGRAM WITH DOPPLER. TECHNOLOGIST: JT ARIAS, PAZ
--- NOTE | 2018-03-27 11:17 | P.PN ---
Subjective Date of Service: 03/27/18 Primary Care Provider: Nato Estrada NP; GI-Dr. Dubon([facility]); Nephrology-Dr. Tobias; Oncology Chief Complaint: Fatigue, chest pain, near syncope Subjective: Improving (Patient appears improved. Patient appears to be at his baseline level. Patient requesting medication for pain. Patient with chronic pain.) Physical Examination - Vital Signs Temperature: 97.0 F Blood Pressure: 127/68 Pulse: 63 Respirations: 16 Pulse Ox (%): 96 - Physical Exam General: Alert, In no apparent distress, Cooperative HEENT: Atraumatic Neck: Supple Respiratory: Clear to auscultation bilaterally, Normal air movement Cardiovascular: Normal pulses, Regular rate/rhythm Gastrointestinal: Normal bowel sounds, Soft and benign, Non-distended, No tenderness, No masses, No rebound, No guarding Musculoskeletal: No erythema, No tenderness, No warmth Integumentary: No erythema, No warmth, No cyanosis Neurological: Normal speech, Normal strength at 5/5 x4 extr, Normal tone, Normal affect - Studies Laboratory Data (last 24 hrs) 03/26/18 14:10: PT 12.9 H, INR 1.09 03/26/18 14:10: WBC 7.3, Hgb 13.4 L, Hct 39.9, Plt Count 180 03/26/18 14:10: Sodium 140, Potassium 4.3, BUN 29 H, Creatinine 2.20 H, Glucose 85, Magnesium 1.9, Total Bilirubin 0.3, AST 30, ALT 40, Alkaline Phosphatase 79 Medications List Reviewed: Yes Assessment & Plan - Problems (Diagnosis) (1) Pre-syncope Onset Date: 03/27/18 Current Visit: Yes Status: Acute Plan: Presyncope likely related to dehydration. Acute on chronic renal disease noted. Renal function has significantly improved. Blood pressure now better controlled. Orthostatics within normal range. Patient likely not taking adequate intake at home. Cardiology has evaluated patient. Patient will have echocardiogram and stress test done. If negative anticipate discharge later today if okay with nephrology. Carotid Doppler unremarkable. Will discuss with nephrology and cardiology. (2) Chest pain Onset Date: 03/27/18 Current Visit: Yes Status: Acute Plan: Cardiac enzymes unremarkable. Cardiology has evaluated patient. Echocardiogram and stress test pending. If unremarkable possible discharge later today. Qualifiers: Chest pain type: unspecified Qualified Code(s): R07.9 - Chest pain, unspecified (3) Chronic renal disease Onset Date: 03/27/18 Current Visit: Yes Status: Acute Plan: Acute on chronic renal disease noted from dehydration. Patient likely not taking adequate intake at home. Renal function significantly improved with IV fluids. Nephrology consulted. Will discuss with nephrology. Anticipate discharge later today if okay with nephrology and cardiac workup unremarkable. Qualifiers: Chronic kidney disease stage: stage 3 (moderate) Qualified Code(s): N18.3 - Chronic kidney disease, stage 3 (moderate) (4) Fatigue Onset Date: 03/27/18 Current Visit: Yes Status: Acute Plan: Likely from dehydration. Will continue with IV fluids. Continue as above. (5) Smoldering multiple myeloma Onset Date: 03/27/18 Current Visit: Yes Status: Chronic Plan: Patient is seen by oncology in [place]. Currently stable this time. (6) Depression with anxiety Onset Date: 03/27/18 Current Visit: Yes Status: Chronic Plan: Will continue with medication (7) Fatty liver Onset Date: 03/27/18 Current Visit: Yes Status: Chronic Plan: Fasting lipid panel stable. Patient seen by GI as an outpatient. (8) Hyperlipidemia Onset Date: 03/27/18 Current Visit: Yes Status: Chronic Plan: Total triglycerides 243, total cholesterol 106. Qualifiers: Hyperlipidemia type: unspecified Qualified Code(s): E78.5 - Hyperlipidemia , unspecified (9) Obesity Onset Date: 03/27/18 Current Visit: Yes Status: Chronic Plan: Will address lifestyle modification and nutrition. Qualifiers: Obesity type: due to excess calories Obesity classification: adult class 2 (BMI 35 - 39.9) Serious obesity comorbidity presence: with serious comorbidity Body mass index: BMI 36.0-36.9 Qualified Code(s): E66.01 - Morbid (severe) obesity due to excess calories; Z68.36 - Body mass index (BMI) 36.0-36.9, adult (10) GERD (gastroesophageal reflux disease) Onset Date: 03/27/18 Current Visit: Yes Status: Suspected Plan: Will continue with PPI Qualifiers: Esophagitis presence: esophagitis presence not specified Qualified Code(s) : K21.9 - Gastro-esophageal reflux disease without esophagitis (11) Chronic pain Current Visit: Yes Status: Chronic Plan: Will continue with pain medication. Patient may benefit with pain management as an outpatient. Qualifiers: Chronic pain type: chronic pain syndrome Qualified Code(s): G89.4 - Chronic pain syndrome Discharge Plan: Home Plan to discharge in: 24 Hours Time Spent Managing Pts Care (In Minutes): 55
--- NOTE | 2018-03-27 11:37 | CON ---
History Of Present Illness: Mr. Najera has been having chest pain starting yesterday. Since he has been in the hospital, PR was ruled out. Mr. Najera has numerous medical problems. I am not sure if he has a unifying diagnosis, but all of his problems were present from the time of . He has mul tiple episodes of pancreatitis. Mental development is abnormal. He has multiple myeloma. He has hy pertension, depression, numerous bowel problems, seizure disorder, and yesterday he was at an adult [employer] [facility] place when he started having chest pain. The pain gets worse when he takes a deep breath. He is not having fevers or chills. Medications: Outpatient medications have been Lamictal, loratadine, Lyrica, Ambien, coenzyme Q10, ma gnesium, domperidone, Lomotil, fish oil, Crestor, Uloric, citalopram, and cholecalciferol. Social History: He does not use tobacco or alcohol. He does not have diabetes. His most recent lipid panel showed a total cholesterol of 106. Physical Examination: General: He has mild hypertelorism. Eyes: Mild exophthalmos. Lungs: Clear. He does wince in pain when he takes a deep breath. He says this reproduces what he h ad yesterday. Heart: within normal limits. No friction rub. Abdomen: Soft. Mildly tender. Extremities: Normal. Mild edema. Distal pulses 1+. His electrocardiogram is normal. His carotid Doppler is normal. A chest x-ray is normal. Cardiac e nzymes are all normal. Impression: The patient seems to have a pleuritic type of chest pain. I have a feeling he has a ser ositis of some kind. There is no friction rub, so we are not likely to find a pericardial effusion. Echo is pending. We will do a pharmacologic stress test to make sure there isn't ischemia. We will give a trial of colchicine to see if this helps with the pleuritic chest pain. Thank you very much for your kind referral of Mr. Najera. I will follow him with you. DIANA/EDMUNDO Voice ID: [id number] Report ID: [id number]
--- NOTE | 2018-03-27 12:13 | TREADPHA ---
DX: CHEST PAIN Date of Study: 03/27/18 Ht: 5 4 Wt: 214 lb 0 oz Consulting Physician: MELODY MEDICATIONS: TYLENOL, ASPRIIN, NORCO, CELEXA, ZOFRAN, COLCRYS, CELEXA, PROTONIX, LYRICA, CRESTOR, ULTRAM HISTORY: 37 YEAR OLD MALE WITH COMPLAINTS OF CHEST PAIN. HISTORY OF HYPERLIPIDEMIA PHYSICIAL EXAMINATION: RESTING B.P.: 117/63 RESTING H.R.: 67 RESTING EKG: NORMAL PROTOCOL: LEXISCAN EXERCISE TIME: 3:30 B.P. AT PEAK STRESS: 76/47 82/43 IMPRESSION: LEXISCAN INJECTED, CARDIOLITE INJECTED, SEE NUCLEAR MEDICINE REPORT. NO CHEST PAIN. NO VENTRICULAR TACHYCARDIA. NO SUPRA VENTRICULAR TACHYCARDIA. NON DIAGNOSTIC EKG WITH LEXISCAN STRESS.
--- NOTE | 2018-03-27 12:27 | RAD REPORT ---
EXAM DESCRIPTION: NM - Rest Stress Cardiac Imaging - 03/27/2018 12:22 pm CLINICAL HISTORY: CP Chest pain. COMPARISON: No comparisons TECHNIQUE: The patient was administered approximately 10mCi of Tc 99m Sestamibi prior to resting SPE CT imaging of the heart. The patient was then administered approximately 30 mCi of Tc 99m Sestamibi f ollowing exercise or pharmacologic stress. Multiplanar SPECT images were reviewed. FINDINGS: No stress induced ischemic defect is seen to suggest stress induced ischemia. No fixed def ect is seen to suggest hibernating myocardium or scarred myocardium. The end diastolic volume is 82 ml, the end systolic volume is 33 ml, and the ejection fraction is 60 %. IMPRESSION: No stress induced ischemia.
--- NOTE | 2018-03-27 14:06 | P.DS ---
Admission Date: 03/26/18 Discharge Date: 03/27/18 Primary Care Provider: Nato Estrada NP; GI-Dr. Dubon([facility]); Nephrology-Dr. Tobias; Oncology Disposition: ROUTINE DISCHARGE Discharge Condition: GOOD Reason for Admission: Fatigue, chest pain, near syncope Consultations: Cardiology-Dr. Leavitt Nephrology-Dr. Tobias Procedures: ECHO: Ejection fraction 79%. Otherwise unremarkable. Carotid doppler: No significant stenosis noted. Cardiac stress test: FINDINGS: No stress induced ischemic defect is seen to suggest stress induced ischemia. No fixed defect is seen to suggest hibernating myocardium or scarred myocardium. The end diastolic volume is 82 ml, the end systolic volume is 33 ml, and the ejection fraction is 60 %. IMPRESSION: No stress induced ischemia. - Problems (1) Pre-syncope Onset Date: 03/27/18 Current Visit: Yes Status: Acute (2) Chest pain Onset Date: 03/27/18 Current Visit: Yes Status: Acute Qualifiers: Chest pain type: unspecified Qualified Code(s): R07.9 - Chest pain, unspecified (3) Chronic renal disease Onset Date: 03/27/18 Current Visit: Yes Status: Acute Qualifiers: Chronic kidney disease stage: stage 3 (moderate) Qualified Code(s): N18.3 - Chronic kidney disease, stage 3 (moderate) (4) Fatigue Onset Date: 03/27/18 Current Visit: Yes Status: Acute (5) Smoldering multiple myeloma Onset Date: 03/27/18 Current Visit: Yes Status: Chronic (6) Depression with anxiety Onset Date: 03/27/18 Current Visit: Yes Status: Chronic (7) Fatty liver Onset Date: 03/27/18 Current Visit: Yes Status: Chronic (8) Hyperlipidemia Onset Date: 03/27/18 Current Visit: Yes Status: Chronic Qualifiers: Hyperlipidemia type: unspecified Qualified Code(s): E78.5 - Hyperlipidemia , unspecified (9) Obesity Onset Date: 03/27/18 Current Visit: Yes Status: Chronic Qualifiers: Obesity type: due to excess calories Obesity classification: adult class 2 (BMI 35 - 39.9) Serious obesity comorbidity presence: with serious comorbidity Body mass index: BMI 36.0-36.9 Qualified Code(s): E66.01 - Morbid (severe) obesity due to excess calories; Z68.36 - Body mass index (BMI) 36.0-36.9, adult (10) GERD (gastroesophageal reflux disease) Onset Date: 03/27/18 Current Visit: Yes Status: Suspected Qualifiers: Esophagitis presence: esophagitis presence not specified Qualified Code(s) : K21.9 - Gastro-esophageal reflux disease without esophagitis (11) Chronic pain Current Visit: Yes Status: Chronic Qualifiers: Chronic pain type: chronic pain syndrome Qualified Code(s): G89.4 - Chronic pain syndrome (12) Orthostatic hypotension Current Visit: Yes Status: Acute Brief History of Present Illness: 29-year-old male with multiple medical problems including multiple myeloma, chronic abdominal pain, gout, chronic renal disease. Patient is brought in by family as the patient is being taking care of by his parents. Patient has education level of a 12-year-old. This is reported by the parents. Parents report that the patient has been having increasing fatigue over the last several days. Parents note that the blood pressure has been low at times. 3 weeks ago he was taking medication for blood pressure. He was taken off at that time. 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 Patient had reported some chest pain at that time. There was some indication that nephrology was going to send the patient to Cardiology for evaluation. Patient sees multiple specialists including Nephrology, GI, Oncology, and Rheumatology. Today the patient had pain to the substernal region. It radiates to the left arm. It was associated with some shortness of breath and sweatiness. No fever, chills noted. No significant abdominal pain noted. In the ER patient was evaluated. Initial blood pressure was around 90 systolic. Patient was given IV fluids in the emergency room. Initial workup shows a troponin within normal range. No significant EKG changes noted. Sodium 140, potassium 4.3. Creatinine 2.2 with a GFR 34. Chest x-ray unremarkable. Due to nature the findings the patient was admitted for evaluation. When I saw the patient ER, he appeared comfortable. He had an appear in any distress. Patient was getting IV fluids. Parents were at bedside. Patient does not smoke or drink. He does drink a great deal of caffeine. Patient taking multiple medications for his chronic diseases. Hospital Course: The patient did well during the course of the stay. Patient evaluated for chest pain and presyncope. Patient evaluated by Cardiology. Echocardiogram, carotid Doppler and cardiac stress test unremarkable. No stress-induced ischemia noted. No further cardiac workup was required. Patient will continue with his current medication. Patient has fluctuating BP and orthostatic hypotension was noted. He was not symptomatic. It was also noted that when he got pain medication, his BP was low. Cased addressed with Nephrology at length. Patient may have Autonomic dysfunction. He has seen Neurology in the past for this as noted by nephrology. Recommendation is for the patient to follow up with Neurology to further evaluate and treat. Recommendation is for the patient to follow up with Cardiology as he may require a Holter monitor and Loop recorder to further assess. Recommendation is limit prolonged standing, limit sudden movement from sitting-standing/sitting-lying/lying to standing as this may cause orthostatic hypotension. Recommendation is to limit or discontinue pain medication like Tramadol or hydrocodone as this may cause orthostatic hypotension. It will be important to remain hydrated. Recommendation is to follow up with nephrology to further monitor as well. Patient has chronic renal disease. Renal function was slightly compromise upon admission. This is likely from dehydration. Patient reported poor oral intake. Patient evaluated by nephrology. Patient to increase fluid intake. Recommendation for the patient follow up with nephrology in 1 week to monitor his progress. Recommendation to recheck lab-BMP in 1 week. Patient has chronic pain. Patient may continue with his pain medication- Lyrica. I will recommend to discontinue Tramadol or narcotic medication as this maybe contributing to his orthostatic hypotension. Patient may benefit with pain management referral to further monitor and address. Patient with hyperlipidemia. Patient continue with Crestor 20 mg daily. Patient with history of gout. Cardiology recommended to take colchicine for suspected pleuritic chest pain. Patient continue with gout medication. Patient may take colchicine 0.6 mg twice daily as needed for gout attack. Patient has depression. Patient will continue with his medication. Patient with history of hypertension. Patient no longer taking blood pressure medication. Recommendation to monitor blood pressure daily with blood pressure log. Patient will follow up with Nephrology to further monitor and address. Patient has GERD. Patient will continue with medication. Patient has smoldering multiple myeloma. Patient will follow up with oncology to continue his care. Vital Signs/Physical Exam: Temp Pulse Resp BP Pulse Ox 97.1 F 72 18 105/56 L 90 L 03/27/18 12:00 03/27/18 12:00 03/27/18 12:00 03/27/18 12:00 03/27/18 12:00 General: Alert, In no apparent distress, Oriented x3, Cooperative HEENT: Atraumatic Neck: Supple Respiratory: Clear to auscultation bilaterally, Normal air movement Cardiovascular: Normal pulses, Regular rate/rhythm Gastrointestinal: Normal bowel sounds, Soft and benign, Non-distended, No tenderness, No masses, No rebound, No guarding Musculoskeletal: No erythema, No tenderness, No warmth Integumentary: No tenderness/swelling, No erythema, No warmth, No cyanosis Neurological: Normal speech, Normal strength at 5/5 x4 extr, Normal tone, Normal affect Laboratory Data at Discharge: WBC 6.5 K/uL (4.3-10.9) 03/27/18 05:43 Hgb 13.4 g/dL (13.6-17.9) L 03/27/18 05:43 Hct 40.0 % (39.6-49.0) 03/27/18 05:43 Plt Count 152 K/uL (152-406) 03/27/18 05:43 PT 12.9 SECONDS (9.5-12.5) H 03/26/18 14:10 INR 1.09 03/26/18 14:10 Sodium 141 mmol/L (136-145) 03/27/18 05:43 Potassium 4.5 mmol/L (3.5-5.1) 03/27/18 05:43 BUN 22 mg/dL (7-18) H 03/27/18 05:43 Creatinine 1.30 mg/dL (0.55-1.3) 03/27/18 05:43 Glucose 86 mg/dL (74-106) 03/27/18 05:43 Magnesium 1.9 mg/dL (1.8-2.4) 03/27/18 05:43 Total Bilirubin 0.3 mg/dL (0.2-1.0) 03/27/18 05:43 AST 29 U/L (15-37) 03/27/18 05:43 ALT 37 U/L (12-78) 03/27/18 05:43 Alkaline Phosphatase 76 U/L (45-117) 03/27/18 05:43 Troponin I < 0.02 ng/mL (0.0-0.045) 03/27/18 05:43 Triglycerides 243 mg/dL (<150) H 03/27/18 05:43 Cholesterol 106 mg/dL (<200) 03/27/18 05:43 HDL Cholesterol 32 mg/dL (40-60) L 03/27/18 05:43 Cholesterol/HDL Ratio 3.31 03/27/18 05:43 Home Medications: Lamotrigine [Lamictal] 100 mg PO BEDTIME 09/30/11 Loratadine [Claritin*] 10 mg PO BEDTIME 04/20/15 Pregabalin [Lyrica] 300 mg PO BID 04/20/15 Ubidecarenone [Co Q-10] 200 mg PO DAILY 04/20/15 Zolpidem Tartrate [Ambien] 5 mg PO BEDTIME 04/20/15 Magnesium Oxide [Mag 0X*] 400 mg PO DAILY 01/09/16 Diphenox/Atropine [Lomotil*] 0.5 tab PO BEDTIME 12/20/17 Domperidome 10 mg PO AC 12/20/17 Cholecalciferol (Vitamin D3) [Vitamin D 1000 Iu Tab*] 1 tab PO SEECOM 03/26/18 Citalopram [Celexa*] 40 mg PO BEDTIME 03/26/18 Febuxostat [Uloric] 40 mg PO BEDTIME 03/26/18 [place]-3/Dha/Epa/Fish Oil [Fish Oil 1,000 mg Softgel] 1,000 mg PO DAILY 03/26/18 Rosuvastatin Calcium [Crestor] 20 mg PO BEDTIME 03/26/18 Colchicine [Colcrys *] 0.6 mg PO BID PRN #10 tab 03/27/18 New Medications: Colchicine [Colcrys *] 0.6 mg PO BID PRN #10 tab PRN Reason: Pain Patient Discharge Instructions: 1. Patient will need a follow up with his PCP in 1 week to follow up this hospitalization. 2. Patient presented with presyncope and chest pain. Patient evaluated by Cardiology. Echocardiogram and cardiac stress test unremarkable. No stress-induced ischemia noted. Patient will continue with his current medication. 3. Patient has fluctuating BP and orthostatic hypotension was noted. Cased addressed with Nephrology. Patient may have Autonomic dysfunction. It may also be related to his pain medication. Recommendation is to discontinue or limit pain medication. He has seen Neurology in the past for this. Recommendation is for the patient to follow up with Neurology to further evaluate and treat. Recommendation is for the patient to follow up with Cardiology as well as he may require a Holter monitor and Loop recorder to further assess. Recommendation is to limit prolonged standing and limit sudden movement from sitting-standing/sitting-lying/lying- standing as this may cause orthostatic hypotension. It will be important to remain well hydrated. Recommendation is to follow up with nephrology to further monitor as well. 4. Patient has chronic renal disease. Patient had acute on chronic disease likely from dehydration. Patient to increase fluid intake. Recommendation for the patient follow up with nephrology in 1 week to monitor his progress. Recommendation to recheck lab-BMP in 1 week. 5. Patient has chronic pain medication. Recommendation is to continue with Lyrica. Recommendation is to discontinue or limit pain medication like tramadol or hydrocodone as this may cause orthostatic hypotension. Patient may benefit with pain management referral to further monitor and address. 6. Patient with hyperlipidemia. Patient continue with Crestor 20 mg daily. 7. Patient with gout. Patient continue with gout medication. Patient may take colchicine 0.6 mg twice daily as needed for gout attack. 8. Patient has depression. Patient will continue with his medication. 9. Patient with history of hypertension. Patient no longer taking blood pressure medication. Recommendation to maintain blood pressure log. Patient will follow up with Nephrology to further monitor and address. 10. Patient has GERD. Patient will continue with medication. 11. Patient has smoldering multiple myeloma. Patient will follow up with oncology to continue his care. Diet: Renal Activity: Fall precautions Followup: Anitra Estrada NP [Primary Care Provider] - Time spent managing pt's care (in minutes): 55
[2018-03-27 17:15] VITALS: BP 115/58; TEMP 97
[2018-03-27] MEDS ORDERED: lamoTRIgine 100 MG TAB PO SCH (21:00)
[2018-03-27] MEDS ORDERED: ROSUVASTATIN 10 MG TAB PO SCH (21:00)
[2018-03-27] MEDS ORDERED: CITALOPRAM 10 MG TABLET PO SCH (21:00)
--- NOTE | 2018-03-27 23:06 | P.CNS ---
Date of Consult: 03/27/18 Reason for Consult: AYLIN Requesting Physician: Abisai Roy Primary Care Provider: Nato Estrada NP; GI-Dr. Dubon([employer]); Nephrology-Dr. Tobias; Oncology Chief Complaint: Fatigue, chest pain, near syncope History of Present Illness: 29-year-old male with multiple medical problems including multiple myeloma, chronic abdominal pain, gout, chronic renal disease. Patient is brought in by family as the patient is being taking care of by his parents. Patient has education level of a 12-year-old. This is reported by the parents. Parents report that the patient has been having increasing fatigue over the last several days. Parents note that the blood pressure has been low at times. 3 weeks ago he was taking medication for blood pressure. He was taken off at that time. 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 Patient had reported some chest pain at that time. There was some indication that nephrology was going to send the patient to Cardiology for evaluation. Patient sees multiple specialists including Nephrology, GI, Oncology, and Rheumatology. Today the patient had pain to the substernal region. It radiates to the left arm. It was associated with some shortness of breath and sweatiness. No fever, chills noted. No significant abdominal pain noted. 14:55 This 37 yrs old Male presents to ER via Wheelchair with complaints of Chest jr8 Pain. 14:55 The patient or guardian reports chest pain that is located primarily in the substernal jr8 area. The pain radiates to the left arm. Associated signs and symptoms: Pertinent positives: dizziness, lightheadedness, near-syncope. The chest pain is described as a heaviness. Duration: The patient or guardian reports multiple episodes, that are intermittent, that wax and wane. Modifying factors: The symptoms are alleviated by nothing. the symptoms are aggravated by nothing. Severity of pain: At its worst the pain was moderate in the emergency department the pain has improved mildly. The patient has not experienced similar symptoms in the past. The patient has not recently seen a physician. Patient with multiple medical conditions. Stated that he has been experiencing near syncope like episodes for several months. Has been seen by PCP and neurology. Both want him to see general intern. Has appointment set but has not seen him as of yet. Came to ED today because he started with chest pain, sweating, dizziness last night that has continued through to today . Allergies Cephalosporins Allergy (Severe, Verified 12/20/17 23:26) Anaphylaxis baclofen Allergy (Intermediate, Verified 12/20/17 23:26) Itching/Hives/Rash hydromorphone HCl [From Dilaudid] Allergy (Intermediate, Verified 12/20/17 23:26 ) itching redness meperidine HCl [From Demerol] Allergy (Intermediate, Verified 12/20/17 23:26) Itching promethazine HCl [From Phenergan] Allergy (Intermediate, Verified 12/20/17 23:26 ) itching swelling levofloxacin [From Levaquin] Allergy (Unknown, Verified 12/20/17 23:26) itching redness morphine Allergy (Verified 12/20/17 23:26) Hives/Rash Home Medications: Lamotrigine [Lamictal] 100 mg PO BEDTIME 09/30/11 Loratadine [Claritin*] 10 mg PO BEDTIME 04/20/15 Pregabalin [Lyrica] 300 mg PO BID 04/20/15 Ubidecarenone [Co Q-10] 200 mg PO DAILY 04/20/15 Zolpidem Tartrate [Ambien] 5 mg PO BEDTIME 04/20/15 Magnesium Oxide [Mag 0X*] 400 mg PO DAILY 01/09/16 Diphenox/Atropine [Lomotil*] 0.5 tab PO BEDTIME 12/20/17 Domperidome 10 mg PO AC 12/20/17 Cholecalciferol (Vitamin D3) [Vitamin D 1000 Iu Tab*] 1 tab PO SEECOM 03/26/18 Citalopram [Celexa*] 40 mg PO BEDTIME 03/26/18 Febuxostat [Uloric] 40 mg PO BEDTIME 03/26/18 [place]-3/Dha/Epa/Fish Oil [Fish Oil 1,000 mg Softgel] 1,000 mg PO DAILY 03/26/18 Rosuvastatin Calcium [Crestor] 20 mg PO BEDTIME 03/26/18 Colchicine [Colcrys *] 0.6 mg PO BID PRN #10 tab 03/27/18 - Past Medical/Surgical History Diabetic: No -: Recurrent Diverticulitis -: Hypospadias with history of surgery -: Pancreatitis-chronic -: Mental Retardation (11 Year Old Level) -: Gastroparesis -: Neuropathy -: Autonomic dysfunction -: Right eye aniscoria -: Multiple myeloma, smoldering type -: Obesity -: GERD -: Fatty liver -: Appendectomy -: Bowel resection -: Hernia repair -: Bilateral Eye Sx (Muscle Adjustment) -: Exploratory laparotomy -: Repair of hypospadias Psychosocial/ Personal History: The patient lives with his parents. He is fully dependent on them. - Family History Mother Notes: Mom stated that "he is adopted" - Social History Smoking Status: Never smoker Alcohol use: No CD- Drugs: No Caffeine use: Yes Place of Residence: Home Review of Systems 10-point ROS is otherwise unremarkable General: Weakness, Malaise Neurological: Weakness Physical Examination Temp Pulse Resp BP Pulse Ox 97.0 F 67 18 115/58 L 93 03/27/18 16:00 03/27/18 16:00 03/27/18 16:00 03/27/18 16:00 03/27/18 16:00 General: In no apparent distress, Oriented x3, Cooperative HEENT: Atraumatic, Mucous membr. moist/pink Neck: Supple, JVD not distended Respiratory: Clear to auscultation bilaterally, Normal air movement Cardiovascular: No edema, Regular rate/rhythm, No rubs Gastrointestinal: Soft and benign, Non-distended, Tenderness Musculoskeletal: No clubbing, No contractures Integumentary: No rashes, No cyanosis Neurological: Normal speech Hgb 13.4 Blood work reviewed in the chart. Imagings Data: Reason for Exam: CHEST PAIN Report Status: Signed EXAM DESCRIPTION: [place] Single View03/26/2018 3:02 pm CLINICAL HISTORY: Chest pain COMPARISON: December 2017 FINDINGS: The lungs appear clear of acute infiltrate. The heart is borderline enlarged IMPRESSION: No acute abnormalities displayed HEIGHT: 5 ft 4 in WEIGHT: 214 lb 0 oz DATE OF STUDY: 03/27/[address]: 2-DIMENSIONAL: YES M.MODE: YES DOPPLER: YES COLOR FLOW: YES TDS: PORTABLE: DEFINITY: BUBBLE STUDY: DIAGNOSIS: SYNCOPE CARDIAC HISTORY: CATHERIZATION: NO SURGERY: NO PROSTHETIC VALVE: NO PACEMAKER: NO MEASUREMENTS (cm) DIASTOLIC (NORMALS) SYSTOLIC (NORMALS) IVSd 1.2 (0.6-1.2) LA Diam 3.7 (1.9-4.0) LVEF 79% LVIDd 5.0 (3.5-5.7) LVIDs 2.6 (2.0-3.5) %FS 48% LVPWd 1.2 (0.6-1.2) Ao Diam 2.8 (2.0-3.7) 2 DIMENSIONAL ASSESSMENT: RIGHT ATRIUM: NORMAL LEFT ATRIUM: NORMAL RIGHT VENTRICLE: NORMAL LEFT VENTRICLE: NORMAL TRICUSPID VALVE: NORMAL MITRAL VALVE: NORMAL PULMONIC VALVE: NORMAL AORTIC VALVE: NORMAL PERICARDIAL EFFUSION: NONE AORTIC ROOT: NORMAL LEFT VENTRICULAR WALL MOTION: NORMAL. DOPPLER/COLOR FLOW: NORMAL. COMMENTS: NORMAL 2D ECHOCARDIOGRAM WITH DOPPLER. Conclusions/Impression: A/ AYLIN/ CKD III in the setting of hypotension. Near syncope with hypotension in the setting of autonomic polyneuropathy. Smoldering Multiple Myeloma. GERD. Fatty Liver. P/ Continue current POC and Medications. Case discussed with Dr. Roy. Counseled the patient regarding autonomic polyneuropathy complicated by possible volume depletion. Recommend a follow up with neurology. Follow up with MD Hussein for MM. Maintain nutrition and hydration. Appreciate cardiology evaluation. Thank you kindly for the consultation.
== END 2018-03-27 18:42 | disposition home or self-care (01) ==
LOC: ER 13:11 → ERHOLD 15:28 → 2ND 16:53
PROVIDERS: ADMIT Family Medicine; ATTEND Family Medicine
DX: R07.9 Chest pain, unspecified (principal); G90.3 Multi-system degeneration of the autonomic nervous system; N17.9 Acute kidney failure, unspecified; C90.00 Multiple myeloma not having achieved remission; N18.3 Chronic kidney disease, stage 3 (moderate); M10.9 Gout, unspecified; F79 Unspecified intellectual disabilities; E78.5 Hyperlipidemia, unspecified; K21.9 Gastro-esophageal reflux disease without esophagitis; K31.84 Gastroparesis; E66.9 Obesity, unspecified; H57.02 Anisocoria; K76.0 Fatty (change of) liver, not elsewhere classified; Z88.5 Allergy status to narcotic agent; Z88.1 Allergy status to other antibiotic agents; R53.83 Other fatigue; F41.8 Other specified anxiety disorders; E66.01 Morbid (severe) obesity due to excess calories; Z68.36 Body mass index [BMI] 36.0-36.9, adult; G89.4 Chronic pain syndrome
CPT/HCPCS: 36415; 71045; 78452; 80048; 80053; 80061; 80076; 81003; 82550; 82553; 83605; 83735; 83880; 84145; 84439; 84443; 84484; 85025; 85610; 87040; 93005; 93017; 93306; 93880; 96360; 99285; A9500; G0378; J2785; J7030

== ENCOUNTER 2018-09-25 14:24 | Emergency (ER) | payer BC, OTHER ==
--- OUTSIDE RECORDS SUMMARY | 2018-09-25 14:32 | XMS REPORT ---
[...] Medications Results No Known Results Summary Purpose [employer] Submission
--- OUTSIDE RECORDS SUMMARY | 2018-09-25 14:32 | XMS REPORT | Clinical Summary ---
:1980 Author Organization [facility] Address [address] [place] [address] Care Team Providers Name Role Phone Anitra Estrada Genesis MVA REACTOR OPERATOR HEAD-C Primary Care Provider Allergies Active Allergy Reactions Severity Noted Date Comments Baclofen 10/05/2015 Cephalosporins Anaphylaxis High 10/05/2015 Meperidine 10/05/2015 Hydromorphone 10/05/2015 Levofloxacin 10/05/2015 Morphine 01/14/2016 Opioids - Morphine Analogues 10/05/2015 Promethazine 10/05/2015 Medications Medication Sig Dispensed Refills Start Date End Date Status lamoTRIgine Take 100 mg 0 Active (LaMICtal) 100 MG by mouth tablet nightly. zolpidem (AMBIEN) 10 Take 5 mg by 0 Active mg tablet mouth nightly as needed for sleep. pregabalin (LYRICA) Take 200 mg 0 Active 300 MG capsule by mouth 2 (two) times a day. citalopram (CeleXA) Take 40 mg by 0 01/09/2018 Active 40 MG tablet mouth nightly. melatonin 3 mg tablet Take by 0 Active mouth. simvastatin (ZOCOR) Take 20 mg by 0 Active 20 MG tablet mouth nightly. magnesium oxide Take 400 mg 0 Active (MAG-OX) 400 mg by mouth (241.3 mg magnesium) daily. tablet ubidecarenone/vitamin Take by 0 Active E mixed (COQ10 SG 100 mouth. ORAL) levocetirizine Take by 0 Active dihydrochloride mouth. (XYZAL ORAL) docosahexanoic Take by 0 Active acid-epa (FISH OIL) mouth. 120-180 mg capsule ULORIC 40 mg tablet TAKE 1 TABLET 30 tablet 11 09/09/2018 Active BY MOUTH EVERY DAY rosuvastatin Take 20 mg by 0 Discontinued (CRESTOR) 20 MG mouth daily. 8 tablet escitalopram Take 20 mg by 0 Discontinued (LEXAPRO) 20 MG mouth daily. 8 tablet amLODIPine (NORVASC) Take 10 mg by 0 Discontinued 10 mg tablet mouth daily. 8 DOMPERIDONE, BULK, 1 tablet 3 0 Discontinued MISC (three) times 8 a day. febuxostat (ULORIC) Take 1 tablet 30 tablet 11 09/03/2017 40 mg (40 mg total) 9 tabletIndications: by mouth Polyarticular gout, daily. Other secondary osteoarthritis of both feet, Renal insufficiency, Hyperuricemia oseltamivir (TAMIFLU) TAKE ONE 0 09/10/2017 Discontinued 75 MG capsule CAPSULE BY 8 MOUTH EVERY 12 HOURS FOR 5 DAYS Active Problems Problem Noted Date Exotropia, alternating 08/02/2018 Diplopia 08/02/2018 Fluctuating blood pressure 04/26/2018 Abdominal pain, generalized 12/29/2016 Generalized abdominal pain 12/26/2016 Overview: Added automatically from request for surgery [id number] Polyarticular gout 06/29/2016 Hyperuricemia 06/29/2016 Renal insufficiency [...] Encounters Date Type Specialty Care Team Description 09/10/2018 Telephone Ophthalmology Center, Ophthalmology - Clinical Care 09/09/2018 Telephone Ophthalmology Ras Marr MD 09/08/2018 Refill Rheumatology Elba Parekh MD 08/02/2018 Anesthesia Event Plastic Surgery Messi Mchugh BANQUET SUPERVISOR 08/02/2018 Surgery Plastic Surgery Isaac Friedman MD RECTUS RESECTION, BIOPSY OF EXTRAOCULAR MUSCLE-BOTH EYES, SCARRING FROM PREVIOUS EXTRAOCULAR MUSCLE SURGERY 08/02/2018 Hospital Encounter Plastic Surgery Isaac Friedman MD exotropia 06/05/2018 Office Visit Gastroenterology Josette Larios DO Gastroparesis (Primary Dx); Incontinence of feces, unspecified fecal incontinence type 05/16/2018 Hospital Encounter Radiology Ras Marr MD Anisocoria 05/16/2018 Hospital Encounter Radiology Ras Marr MD Exophthalmos 05/15/2018 Orders Only Ophthalmology Ras Marr MD Multiple myeloma, remission status unspecified (Primary Dx) 05/15/2018 Orders Only Ophthalmology Ras Marr MD Anisocoria (Primary Dx) 05/15/2018 Telephone Ophthalmology Ras Marr MD 05/07/2018 Office Visit Endocrinology Perri Mckenna, Blood pressure MD instability (Primary Dx) 05/07/2018 Lab Lab Ras Marr MD Exophthalmos; Multiple myeloma, remission status unspecified 05/07/2018 Office Visit Ophthalmology Ras Marr MD Exophthalmos ( Primary Dx); Unspecified visual field defects; Multiple myeloma, remission status unspecified; Partial optic atrophy of both eyes; Exotropia 04/26/2018 Office Visit Rheumatology Elba Parekh MD Polyarticular gout ( Primary Dx); Renal insufficiency; Other secondary osteoarthritis of both feet; Hyperuricemia; Fluctuating blood pressure 01/16/2018 Office Visit Gastroenterology Josette Larios DO Gastroenteritis (Primary Dx); Gastroparesis; Incontinence of feces, unspecified fecal incontinence type 12/26/2017 Telephone Gastroenterology Gaby Mitchell MA 12/11/2017 Office Visit Ophthalmology Ras Marr MD Multiple myeloma, remission status unspecified (Primary Dx); Unspecified visual field defects 12/11/2017 Orders Only Ophthalmology Ras Marr MD 12/05/2017 Office Visit Gastroenterology Josette Larios DO Gastroparesis (Primary Dx); Incontinence of feces, unspecified fecal incontinence type 10/11/2017 Hospital Encounter Radiology Ras Marr MD Unspecified visual field defects; Multiple myeloma, remission status unspecified; Diplopia; Exophthalmos 10/02/2017 Hospital Encounter Radiology Ras Marr MD 10/02/2017 Hospital Encounter Radiology Ras Marr MD 10/02/2017 Hospital Encounter Radiology Ras Marr MD 09/27/2017 Lab Lab Ras Marr MD Unspecified visual field defects; Multiple myeloma, remission status unspecified; Diplopia; Exophthalmos 09/27/2017 Office Visit Ophthalmology Ras Marr MD Unspecified visual field defects (Primary Dx); Multiple myeloma, remission status unspecified; Diplopia; Exophthalmos; Partial optic atrophy of both eyes; Altitudinal hemianopia of left eye; Arcuate scotoma of both eyes 09/27/2017 Documentation Ophthalmology Clara Stephens MD after 09/24/2017 Social History Tobacco Use Types Packs/Day Years Used Date Never Smoker Smokeless Tobacco: Never Used Alcohol Use Drinks/Week oz/Week Comments No Sex Assigned at Date Recorded Not on file Job Start Date Occupation Industry Not on file Not on file Not on file Travel History Travel Start Travel End No recent travel history available. Last Filed Vital Signs Vital Sign Reading Time Taken Blood Pressure 147/67 08/02/2018 10:25 AM CERTIFIED WELLNESS PROGRAM MANAGER Pulse 84 08/02/2018 10:25 AM CERTIFIED WELLNESS PROGRAM MANAGER Temperature 36.1 C (97 F) 08/02/2018 10:25 AM CERTIFIED WELLNESS PROGRAM MANAGER Respiratory Rate 12 08/02/2018 10:25 AM CERTIFIED WELLNESS PROGRAM MANAGER Oxygen Saturation 97% 08/02/2018 10:25 AM CERTIFIED WELLNESS PROGRAM MANAGER Inhaled Oxygen Concentration - - Weight 98.9 kg (218 lb) 07/23/2018 5:00 PM CERTIFIED WELLNESS PROGRAM MANAGER Height 162.6 cm (5' 4") 07/23/2018 5:00 PM CERTIFIED WELLNESS PROGRAM MANAGER Body Mass Index 37.42 07/23/2018 5:00 PM CERTIFIED WELLNESS PROGRAM MANAGER Plan of Treatment Date Type Specialty Care Team Description 11/06/2018 Office Visit Ophthalmology Ras Marr MD [address] [facility] [address] [place] [address] 05/07/2019 Office Visit Rheumatology Elba Parekh MD [address] [facility] [address] [place] [address] Health Maintenance Due Date Last Done Comments INFLUENZA VACCINE 03/20/2018 Procedures Procedure Name Priority Date/Time Associated Comments Diagnosis SURGICAL PATHOLOGY Routine 08/02/2018 9:00 Results for this REQUEST AM CERTIFIED WELLNESS PROGRAM MANAGER procedure are in the results section. SURGICAL PATHOLOGY Routine 08/02/2018 9:00 Results for this REQUEST AM CERTIFIED WELLNESS PROGRAM MANAGER procedure are in the results section. [place] AN ELECTIVE Routine 08/02/2018 7:50 ENDOTRACHEAL AIRWAY AM CERTIFIED WELLNESS PROGRAM MANAGER Procedure Note - Noris Nixon CRNA - 08/02/2018 7:50 AM CERTIFIED WELLNESS PROGRAM MANAGER ANESTHESIA INTUBATION Performed by: Noris Nixon CRNA Authorized by: Rola Hall MD Location: OR Urgency: Elective Difficult Airway: No Resident/LAUNDRY PRICING CLERK/AA: Noris Nixon CRNA Performed by: resident/LAUNDRY PRICING CLERK/AA Preoxygenated with 100% O2: Yes C-spine Precautions Maintained Throughout: Yes Mask Ventilation: Easy mask (with size 10 oral airway) Final Airway Type: Endotracheal airway Final Endotracheal Airway: ETT and reinforced tube Cuffed: Yes Technique Used: Direct laryngoscopy Devices/Methods Used in Placement: Intubating stylet Insertion Site: Oral Blade Type: Friedman Laryngoscope Blade/Videolaryngoscope Blade Size: 2 ETT Size (mm): 7.0 Cuff at minimum occlusion pressure: Yes Measured from: Lips ETT to Lips (cm): 22 Placement Verified by: CO2 detection, direct visualization and equal breath sounds Laryngoscopic view: Grade I - full view of glottis Rapid Sequence Induction (RSI): No Modified RSI: No Number of Attempts at Approach: 1 Atraumatic; teeth intact STRABISMUS SURGERY 08/02/2018 7:30 Alternating exotropia AM CERTIFIED WELLNESS PROGRAM MANAGER POC PANEL 4 Routine 08/02/2018 6:48 Results for this AM CERTIFIED WELLNESS PROGRAM MANAGER procedure are in the results section. CT ORBITS W WO Routine 05/16/2018 3:11 Anisocoria Results for this CONTRAST PM CDT procedure are in the results section. ESTIMATED GFR Routine 05/16/2018 1:53 Results for this PM CDT procedure are in the results section. POC CREATININE Routine 05/16/2018 1:53 Results for this PM CDT procedure are in the results section. HEMOGLOBIN A1C Routine 05/07/2018 2:50 Blood pressure Results for this PM CDT instability procedure are in the results section. ALDOSTERONE, SERUM Routine 05/07/2018 2:50 Blood pressure Results for this PM CDT instability procedure are in the results section. RENIN ACTIVITY Routine 05/07/2018 2:50 Blood pressure Results for this PM CDT instability procedure are in the results section. CATECHOLAMINES Routine 05/07/2018 2:50 Blood pressure Results for this FRACTIONATED, PLASMA PM CDT instability procedure are in the results section. IMMUNOGLOBULIN G Routine 05/07/2018 10:57 Exophthalmos Results for this SUBCLASS 4 AM CDT Multiple myeloma, procedure are in remission status the results unspecified section. OCT, OPTIC NERVE - OU Routine 05/07/2018 9:37 Exophthalmos - BOTH EYES AM CDT Multiple myeloma, remission status unspecified Partial optic atrophy of both eyes Exotropia AUTOMATED VISUAL Routine 05/07/2018 9:37 Exophthalmos Results for this FIELD, EXTENDED - OU - AM CDT Multiple myeloma, procedure are in BOTH EYES remission status the results unspecified section. Partial optic atrophy of both eyes Exotropia BASIC METABOLIC PANEL Routine 01/16/2018 1:59 Gastroenteritis [...] Unspecified visual Results for this CONTRAST PM CERTIFIED WELLNESS PROGRAM MANAGER field defects procedure are in Multiple myeloma, the results remission status section. unspecified Diplopia Exophthalmos THYROID STIMULATING Routine 09/27/2017 9:18 Results for this HORMONE AM CERTIFIED WELLNESS PROGRAM MANAGER procedure are in the results section. CREATININE LEVEL Routine 09/27/2017 9:18 Unspecified visual Results for this AM CERTIFIED WELLNESS PROGRAM MANAGER field defects procedure are in Multiple myeloma, the results remission status section. unspecified Diplopia Exophthalmos BUN LEVEL Routine 09/27/2017 9:18 Unspecified visual Results for this AM CERTIFIED WELLNESS PROGRAM MANAGER field defects procedure are in Multiple myeloma, the results remission status section. unspecified Diplopia Exophthalmos T4, FREE Routine 09/27/2017 9:18 Unspecified visual Results for this AM CERTIFIED WELLNESS PROGRAM MANAGER field defects procedure are in Multiple myeloma, the results remission status section. unspecified Diplopia Exophthalmos T3, FREE Routine 09/27/2017 9:18 Unspecified visual Results for this AM CERTIFIED WELLNESS PROGRAM MANAGER field defects procedure are in Multiple myeloma, the results remission status section. unspecified Diplopia Exophthalmos THYROID PEROXIDASE Routine 09/27/2017 9:18 Unspecified visual Results for this ANTIBODY AM CERTIFIED WELLNESS PROGRAM MANAGER field defects procedure are in Multiple myeloma, the results remission status section. unspecified Diplopia Exophthalmos THYROID STIMULATING Routine 09/27/2017 9:18 Unspecified visual Results for this IMMUNOGLOBULIN AM CERTIFIED WELLNESS PROGRAM MANAGER field defects procedure are in Multiple myeloma, the results remission status section. unspecified Diplopia Exophthalmos ACETYLCHOLINE RECEPTOR Routine 09/27/2017 9:18 Unspecified visual Results for this MODULATING AB AM CERTIFIED WELLNESS PROGRAM MANAGER field defects procedure are in Multiple myeloma, the results remission status section. unspecified Diplopia Exophthalmos ACETYLCHOLINE RECEPTOR Routine 09/27/2017 9:18 Unspecified visual Results for this BLOCKING AB AM CERTIFIED WELLNESS PROGRAM MANAGER field defects procedure are in Multiple myeloma, the results remission status section. unspecified Diplopia Exophthalmos ACETYLCHOLINE RECEPTOR Routine 09/27/2017 9:18 Unspecified visual Results for this BINDING AB AM CERTIFIED WELLNESS PROGRAM MANAGER field defects procedure are in Multiple myeloma, the results remission status section. unspecified Diplopia Exophthalmos OCT, OPTIC NERVE - OU Routine 09/27/2017 8:19 Unspecified visual Results for this - BOTH EYES AM CERTIFIED WELLNESS PROGRAM MANAGER field defects procedure are in Multiple myeloma, the results remission status section. unspecified Diplopia Exophthalmos Partial optic atrophy of both eyes AUTOMATED VISUAL Routine 09/27/2017 8:19 Unspecified visual Results for this FIELD, EXTENDED - OU - AM CERTIFIED WELLNESS PROGRAM MANAGER field defects procedure are in BOTH EYES Multiple myeloma, the results remission status section. 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 [facility] DEPARTMENT OF PATHOLOGY AND GENOMIC MEDICINE Surgical pathology See link below for PDF Lab [facility] DEPARTMENT OF report Report PATHOLOGY AND GENOMIC MEDICINE Result status This is Supplemental Report [facility] DEPARTMENT OF for [id number] PATHOLOGY AND GENOMIC MEDICINE Performing Organization Address City/State/Zipcode Phone Number [facility] DEPARTMENT OF PATHOLOGY AND [address] [place] [address] GENOMIC MEDICINE POC panel 4 (08/02/2018 6:48 AM CERTIFIED WELLNESS PROGRAM MANAGER) POC sodium 131 (L) 135 - 148 mmol/L [facility] POC potassium 4.7 3.5 - 5.0 mmol/L [facility] POC hematocrit 37 (L) 41 - 51 % [facility] Comment: Meter ID: [id number] Saturation Diver: Yovani Valenzuela POC glucose 101 (H) 65 - 99 mg/dL [facility] Performing Organization Address City/State/Zipcode Phone Number [facility] DEPARTMENT OF PATHOLOGY AND [address] [place] [address] GENOMIC MEDICINE [address] [address] [address] Orbits W Wo Contrast (05/16/2018 3:11 PM CDT) Narrative Performed At EXAMINATION: CT ORBITS W WO CONTRAST RADIANT CLINICAL HISTORY: H57.02 Anisocoria, Anisocoria COMPARISON:MRI brain and orbits from 10/11/2017. TECHNIQUE: Axial noncontrast enhanced images through the orbits were obtained with bone and soft tissue algorithms. Coronal and sagittal reconstructions were also performed.CT scans are performed using radiation dose reduction techniques. Technical factors are evaluated and adjusted to ensure appropriate moderation of exposure. Automated dose management technology is applied to adjust radiation exposure while achieving a diagnostic quality image. FINDINGS: There are no definite areas of abnormal enhancement in the orbits and cavernous sinuses. There is prominent intraorbital fat without definite evidence of tethering of the nerves. The extraocular muscles do not show abnormality. There is bilateral exophthalmus mentioned on the MRI report. The nasal septum deviates towards the left. There is minimal mucosal thickening in some of the sinuses. There is a polyp or retention cyst in the inferior right maxillary sinus. The sella region and suprasellar region do not show significant abnormality. IMPRESSION: No significant acute abnormality in the orbits. Stable bilateral exophthalmus. Mild sinusitis. [id number] Procedure Note Interface, Radiology Results Incoming - 05/16/2018 4:35 PM CDT EXAMINATION: CT ORBITS W WO CONTRAST CLINICAL HISTORY: H57.02 Anisocoria, Anisocoria COMPARISON: MRI brain and orbits from 10/11/2017. TECHNIQUE: Axial noncontrast enhanced images through the orbits were obtained with bone and soft tissue algorithms. Coronal and sagittal reconstructions were also performed.CT scans are performed using radiation dose reduction techniques. Technical factors are evaluated and adjusted to ensure appropriate moderation of exposure. Automated dose management technology is applied to adjust radiation exposure while achieving a diagnostic quality image. FINDINGS: There are no definite areas of abnormal enhancement in the orbits and cavernous sinuses. There is prominent intraorbital fat without definite evidence of tethering of the nerves. The extraocular muscles do not show abnormality. There is bilateral exophthalmus mentioned on the MRI report. The nasal septum deviates towards the left. There is minimal mucosal thickening in some of the sinuses. There is a polyp or retention cyst in the inferior right maxillary sinus. The sella region and suprasellar region do not show significant abnormality. IMPRESSION: No significant acute abnormality in the orbits. Stable bilateral exophthalmus. Mild sinusitis. [id number] Performing Organization Address [facility] Phone Number [address] [address] Estimated GFR (05/16/2018 1:53 PM CDT) Estimated GFR 63 mL/min/1.73 m2 [facility] DEPARTMENT OF Comment: PATHOLOGY AND GENOMIC CatergoryUnitsInterpretation MEDICINE G1 >=90 Normal or high G2 60-89Mildly decreased [id number] to moderately decreased R3a30-60Gptxtpjcwp to severely decreased G4 15-29Severely decreased G5 <15Kidney failure The eGFR was calculated using the Chronic Kidney Disease Epidemiology Collaboration (CKD-EPI) equation. Interpretation is based on recommendations of the National Kidney Foundation-Kidney Disease Outcomes Quality Initiative (NKF-KDOQI) published in 2014. Specimen Blood Performing Organization Address [facility] Phone Number [facility] DEPARTMENT OF PATHOLOGY AND [address] [place] [phone] [facility] POC creatinine (05/16/2018 1:53 PM CDT) POC creatinine 1.4 (H) 0.7 - 1.2 mg/dl [facility] DEPARTMENT OF PATHOLOGY AND Comment: [employer] [facility] Meter ID: [id number] Saturation Diver: Audra Lara Specimen Blood Performing Organization Address [facility] Phone Number [facility] DEPARTMENT OF PATHOLOGY AND [address] [place] [phone] [facility] Renin activity (05/07/2018 2:50 PM CDT) Renin activity 1.13 0.25 - 5.82 ng/mL/h [facility] Comment: [employer] This test was developed and its analytical performance characteristics have been determined by [facility]. It has not been cleared or approved by FDA. This assay has been validated pursuant to the CLIA regulations and is used for clinical purposes. Specimen Blood Narrative Performed At FASTING:NO [facility] FASTING: NO Resulting Agency Comment Performing Organization Information: Site ID: [id number] Name: [facility], Address: [address] [place] [phone] Director: Narcisa Victor MD,PhD,IONA Performing Organization Address City/State/[facility] Phone Number [facility] [employer] [address] [place] [phone] [facility] Catecholamines fractionated, plasma (05/07/2018 2:50 PM CDT) Epinephrine <20 pg/mL [facility] Comment: [employer] [facility] This test was developed and its analytical performance characteristics have been determined by [facility]. It has not been cleared or approved by FDA. This assay has been validated pursuant to the CLIA regulations and is used for clinical purposes. Norepinephrine 214 (L) pg/mL [facility] Comment: [employer] [facility] This test was developed and its analytical performance characteristics have been determined by [facility]. It has not been cleared or approved by FDA. This assay has been validated pursuant to the CLIA regulations and is used for clinical purposes. Dopamine <20 pg/mL [facility] Comment: [employer] [facility] This test was developed and its analytical performance characteristics have been determined by [facility]. It has not been cleared or approved by FDA. This assay has been validated pursuant to the CLIA regulations and is used for clinical purposes. Catecholamines, total 252 pg/mL [facility] Comment: [employer]/[facility] Adult Reference Ranges for Catecholamines, Plasma Epinephrine Supine:<50 pg/mL Upright: <95 pg/mL NorepinephrineSupine:112-658 pg/mL Upright: 217-1109 pg/mL DopamineSupine:<10 pg/mL Upright: <20 pg/mL Total (N+E+D) Supine:123-671 pg/mL Upright: 242-1125 pg/mL Pediatric Reference Ranges for Catecholamines, Plasma Due to stress, plasma catecholamine levels are generally unreliable in infants and small children. Urinary catecholamine assays are more reliable. Epinephrine 3-15 Years Supine:< xz=330 pg/mL Upright: No Reference Range Available Norepinephrine 3-15 Years Supine:< tw=0102 pg/mL Upright: No Reference Range Available Dopamine 3-15 Years Supine:<60 pg/mL Upright: No Reference Range Available Pediatric data from J [employer] (1993) 617:304-307. This test was developed and its analytical performance characteristics have been determined by [facility]. It has not been cleared or approved by FDA. This assay has been validated pursuant to the CLIA regulations and is used for clinical purposes. Specimen Blood Narrative Performed At FASTING:NO [facility] [employer] FASTING: NO Resulting Agency Comment Performing Organization Information: Site ID: [id number] Name: [facility], Address: [address] [place] [phone] Director: Narcisa Victor MD,PhD,IONA Performing Organization Address City/State/Zipcode Phone Number [facility] [employer] [facility] [address] [place] [phone] [facility] Aldosterone, serum (05/07/2018 2:50 PM CDT) Aldosterone 6 ng/dL [facility] [employer] [facility] [employer] Comment: [facility] Adult Reference Ranges for Aldosterone, LC/MS/MS: Upright 8:00-10:00 am< or=28 ng/dL Upright 4:00-6:00 pm < or=21 ng/dL Supine8:00-10:00 am3-16 ng/dL This test was developed and its analytical performance characteristics have been determined by [facility]. It has not been cleared or approved by FDA. This assay has been validated pursuant to the CLIA regulations and is used for clinical purposes. Specimen Blood Narrative Performed At FASTING:NO [facility] [employer] FASTING: NO Resulting Agency Comment Performing Organization Information: Site ID: [id number] Name: [facility], Address: [address] [place] [phone] Director: Narcisa Victor MD,PhD,IONA Performing Organization Address [facility] Phone Number [facility] [address] [place] [phone] [facility] Hemoglobin A1c (05/07/2018 2:50 PM CDT) Hemoglobin A1C 5.8 (H) <5.7 % of total [facility] Comment: [facility] For someone without known diabetes, a hemoglobin A1c value between 5.7% and 6.4% is consistent with prediabetes and should be confirmed with a follow-up test. For someone with known diabetes, a value <7% indicates that their diabetes is well controlled. A1c targets should be individualized based on duration of diabetes, age, comorbid conditions, and other considerations. This assay result is consistent with an increased risk of diabetes. Currently, no consensus exists regarding use of hemoglobin A1c for diagnosis of diabetes for children. Specimen Blood Narrative Performed At FASTING:NO [facility] FASTING: NO Resulting Agency Comment Performing Organization Information: Site ID: RGA Name: [facility] Address: [address] [place] [phone] Director: Maeve Barbour Performing Organization Address [facility] Phone Number [place] [address] Immunoglobulin G subclass 4 (05/07/2018 10:57 AM CDT) Immunoglobulin G subclass 4 15.0 4 - 86 mg/dL [facility] Specimen Blood Resulting Agency Comment Performing Organization Information: Site ID: EZ Name: [facility], Address: [address] [place] [phone] Director: Narcisa Victor MD,PhD,IONA Performing Organization Address [facility] Phone Number [employer]/TAN [address] [place] [address] [phone] [facility] OCT, Optic Nerve - OU (05/07/2018 9:37 AM CDT) Narrative Performed At Automated Visual Field, Extended - OU (05/07/2018 9:37 AM CDT) Narrative Performed At Right Eye Threshold was 24-2. Strategy was RISA. Left Eye Threshold was 24-2. Strategy was RISA. Basic metabolic panel (01/16/2018 1:59 PM CDT) Glucose 151 (H) 65 - 139 mg/dL [facility] Comment: [place] Non-fasting reference interval BUN, whole blood 24 7 - 25 mg/dL [facility] [place] Creatinine 1.49 (H) 0.60 - 1.35 mg/dL [facility] [place] EGFR Non-Afr. [place] 59 (L) > OR=60 [facility] mL/min/1.73m2 [place] EGFR 68 > OR=60 [facility] mL/min/1.73m2 [place] BUN/creatinine ratio 16 6 - 22 (calc) [facility] [place] Sodium 142 135 - 146 mmol/L [facility] [place] Potassium 4.7 3.5 - 5.3 mmol/L [facility] [place] Chloride 105 98 - 110 mmol/L [facility] [place] CO2 28 20 - 31 mmol/L [facility] [place] Calcium 9.6 8.6 - 10.3 mg/dL [facility] [place] Specimen Blood Narrative Performed At FASTING:NO [facility] FASTING: NO Resulting Agency Comment Performing Organization Information: Site ID: RGA Name: [facility] Address: [address] [place] [phone] Director: Maeve Barbour Performing Organization Address City/State/Zipcode Phone Number [place] [address] Vascular endothelial growth factor (VEGF) (12/11/2017 10:25 AM CDT) Vascular endothelial 34 31 - 86 pg/mL [facility] growth factor Comment: [employer]/TAN [facility] This test was performed using a kit that has not been cleared or approved by the FDA. The analytical performance characteristics of this test have been determined by [facility]. This test should not be used for diagnosis without confirmation by other medically established means. Narrative Performed At FASTING: UNKNOWN [facility] Resulting Agency Comment Performing Organization Information: Site ID: EZ Name: [facility]/Tan [facility], Address: [address] [place] [phone] Director: Narcisa Victor MD,PhD,IONA Performing Organization Address City/State/Zipcode Phone Number [facility] [address] [place] [address] [phone] [facility] Automated Visual Field, Extended - OU (12/11/2017 8:45 AM CDT) Narrative Performed At Right Eye Threshold was 24-2. Strategy was RISA. Left Eye Threshold was 24-2. OCT, Optic Nerve - OU (12/11/2017 8:45 AM CDT) Narrative Performed At MRI Brain & Orbit W Wo Contrast (10/11/2017 2:20 PM CERTIFIED WELLNESS PROGRAM MANAGER) Narrative Performed At EXAMINATION: MRI BRAIN & ORBIT W WO CONTRAST RADIANT CLINICAL HISTORY: H53.40 Unspecified visual field [...] exophthalmus. Otherwise unremarkable appearance of the orbits. [facility]-[id number] Procedure Note Hm Interface, Radiology Results Incoming - 10/11/2017 2:51 PM CERTIFIED WELLNESS PROGRAM MANAGER EXAMINATION: MRI BRAIN & ORBIT W WO [...] exophthalmus. Otherwise unremarkable appearance of the orbits. [facility]-[id number] Performing Organization Address [facility] Phone Number [facility] [address] [place] [address] Thyroperoxidase antibody (09/27/2017 9:18 AM CERTIFIED WELLNESS PROGRAM MANAGER) Thyroperoxidase Ab <1 <9 IU/mL [facility] Specimen Blood Resulting Agency Comment Performing Organization Information: Site ID: IG [facility]: [facility] Address: [address] [place] [phone] Director: Dr. Yury Gómez Performing Organization Address City/[facility] Phone Number [facility] [address] [place] [address] Acetylcholine receptor blocking Ab (09/27/2017 9:18 AM CERTIFIED WELLNESS PROGRAM MANAGER) Acetylcholine receptor blocking <15 <15 % of inhibition [facility]/ [facility] Ab [facility] Specimen Blood Resulting Agency Comment Performing Organization Information: Site ID: Name: [facility], Address: [address] [place] [phone] Director: Marcello Fernandes MD,PhD Performing Organization Address [facility] Phone Number [facility] [employer]/TAN [address] [place] [phone] [facility] Acetylcholine receptor modulating Ab (09/27/2017 9:18 AM CERTIFIED WELLNESS PROGRAM MANAGER) Acetylcholine receptor <1 % binding inhib [facility] modulating Ab Comment: [facility]/TAN Reference Range: [facility] < 32% BINDING INHIBITION This test was developed and its analytical performance characteristics have been determined by [facility]. It has not been cleared or approved by FDA. This assay has been validated pursuant to the CLIA regulations and is used for clinical purposes. Specimen Blood Resulting Agency Comment Performing Organization Information: Site ID: EZ Name: [facility], Address: [address] [place] [phone] Director: Marcello Fernandes MD,PhD Performing Organization Address [facility] Phone Number [facility]/TAN [address] [place] [address] [phone] [facility] Acetylcholine receptor binding Ab (09/27/2017 9:18 AM CERTIFIED WELLNESS PROGRAM MANAGER) Acetylcholine receptor <0.30 nmol/L [facility] binding Ab Comment: DI[facility]NOSTICS/TAN [facility] Reference Ranges for Acetylcholine Receptor Binding Antibody: Negative: < or=0.30 nmol/L Equivocal:0.31-0.49 nmol/L Positive: > or=0.50 nmol/L Specimen Blood Resulting Agency Comment Performing Organization Information: Site ID: EZ Name: [facility], Address: [address] [place] [phone] Director: Marcello Fernandes MD,PhD Performing Organization Address [facility] Phone Number [facility]/TAN [address] [place] [phone] [facility] Thyroid stimulating immunoglobulin (09/27/2017 9:18 AM CERTIFIED WELLNESS PROGRAM MANAGER) Thyroid stimulating <89 <140 % baseline [facility] immunoglobulin Comment: [employer]/TAN [facility] Thyroid stimulating immunoglobulins (TSI) can engage the [...] Performing Organization Information: Site ID: EZ Name: [facility], Address: [address] [place] [phone] Director: Marcello Fernandes MD,PhD Performing Organization Address [facility] Cent[facility] Phone Number [employer]/TAN[address] [phone] [facility] BUN level (09/27/2017 9:18 AM CERTIFIED WELLNESS PROGRAM MANAGER) BUN, whole blood 25 7 - 25 mg/dL [facility] [place] Specimen Blood Resulting Agency Comment Performing Organization Information: Site ID: RGA Name: [facility] Address: [address] [place] [phone] Director: Maeve Barbour MD Performing Organization Address [facility]/Zipcode Phone Number [employer] [address] [address] T3, free (09/27/2017 9:18 AM CERTIFIED WELLNESS PROGRAM MANAGER) T3, free 3.7 2.3 - 4.2 pg/mL [facility] [place] Specimen Blood Resulting Agency Comment Performing Organization Information: Site ID: RGA Name: [facility] Address: [address] [place] [phone] Director: Maeve Barbour MD Performing Organization Address [facility] Number [place] [address] Thyroid stimulating hormone (09/27/2017 9:18 AM CERTIFIED WELLNESS PROGRAM MANAGER) TSH 2.83 0.40 - 4.50 mIU/L [facility] [employer] [place] Resulting Agency Comment Performing Organization Information: Site ID: RGA Name: [facility] Address: [address] [place] [phone] Director: Maeve Barbour MD Performing Organization Address [facility] Phone Number [facility] [employer] [place] [address] T4, free (09/27/2017 9:18 AM CERTIFIED WELLNESS PROGRAM MANAGER) T4, free 1.5 0.8 - 1.8 ng/dL [facility] [employer] [place] Specimen Blood Resulting Agency Comment Performing Organization Information: Site ID: [facility] Name: [facility] Address: [address] [place] [phone] Director: Maeve Barbour MD Performing Organization Address [facility] Phone Number [place] [address] Creatinine level (09/27/2017 9:18 AM CERTIFIED WELLNESS PROGRAM MANAGER) Creatinine 1.11 0.60 - 1.35 mg/dL [facility] EGFR Non-Afr. [place] 84 > OR=60 mL/min/1.73m2 [facility] [employer] [place] EGFR 98 > OR=60 mL/min/1.73m2 [facility] [place] Specimen Blood Resulting Agency Comment Performing Organization Information: Site ID: RGA Name: [facility] Address: [address] [place] [phone] Director: Maeve Barbour MD Performing Organization Address [facility] Cent[facility] Phone Number [employer] [address] [phone] OCT, Optic Nerve - OU (09/27/2017 8:19 AM CERTIFIED WELLNESS PROGRAM MANAGER) Narrative Performed At Right Eye Reliability was good. Temporal thickness was normal. Superior thickness was normal. Nasal thickness was normal. Inferior thickness was normal. Left Eye Reliability was good. Temporal thickness was normal. Superior thickness was normal. Nasal thickness was normal. Inferior thickness was normal. Notes G 79 G 74 Automated Visual Field, Extended - OU (09/27/2017 8:19 AM CERTIFIED WELLNESS PROGRAM MANAGER) Narrative Performed At Right Eye Threshold was 24-2. Strategy was RISA. Reliability was good. -8.09. Findings include superior arcuate defect. Left Eye Threshold was 24-2. Strategy was RISA. Reliability was good. -13.21. Findings include superior altitudinal defect, inferior arcuate defect. after 09/24/2017 Insurance Payer Benefit Plan / Group Subscriber ID Type Phone Address [facility] xxxxxxxxxxxx PPO MEDICARE MEDICARE PART A AND B xxxxxxxxxxx Medicare [place], [place] Advance Directives Patient has advance care planning documents on file. For more information, please contact:Nigel Gonzalez[address] [place] [address]
--- OUTSIDE RECORDS SUMMARY | 2018-09-25 14:32 | XMS REPORT ---
[...] Medications Results No Known Results Summary Purpose eClinicalWorks Submission
--- OUTSIDE RECORDS SUMMARY | 2018-09-25 14:33 | XMS REPORT ---
:1980 Author Organization eClinicalWorks Care Team Providers Name Role Phone Jaymie Patel Provider Role Unavailable Allergies, Adverse Reactions, Alerts Substance Reaction Event Type MORPHINE Info Not Available Drug Allergy Phenergan Info Not Available Drug Allergy Levaquin Info Not Available Drug Allergy Dilaudid Info Not Available Drug Allergy Demerol Info Not Available Drug Allergy Baclofen Info Not Available Drug Allergy QUINILONE(e.g. CIPRO) Info Not Available Non Drug Allergy Cephalosporin(e.g. 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 Problem Mixed hyperlipidemia E78.2 Active Problem Chronic kidney disease, stage IV N18.4 Active (severe) Problem Hypomagnesemia E83.42 Active Assessment Impacted cerumen of both ears H61.23 Active Assessment Bronchitis J40 Active Problem Hypertension I10 Active Problem Obstructive sleep apnea (adult) G47.33 Active (pediatric) Problem Peripheral neuropathy G62.9 Active Problem Chronic pancreatitis K86.1 Active Problem Obesity E66.9 Active Problem 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 Medications Medication Code Code Instructions Start End Status Dosage System Date Date Xyzal NDC 0 Active not defined Azithromycin ND 52096442042 250 MG Orally Sep 04, Active 2 tablets Once a day 2018 on the first day, then 1 tablet daily for 4 days Amlodipine ND 20185273791 10 MG Orally Active 1 tablet Besylate Once a day Fish Oil ND 35380555981 1000 MG Orally Active 1 capsule Once a day Lyrica ND 06913004171 300 MG Orally Active 1 capsule Twice a day Crestor [facility] [address]-32 Active not defined Melatonin [facility] 59883051625 10 MG Orally Active as directed Loratadine [facility] 23224955824 10 MG Orally Active 1 tablet PRN Simvastatin [facility] 69223118716 40 MG Orally Active 1 tablet Once a day in the evening ZyrTEC [facility] 68843629531 10 MG Orally Active 1 tablet Once a day CoQ10 [facility] 99835515286 200 MG Orally Active 1 capsule Once a day with a meal Lamictal [facility] 71017230382 100 MG Orally Active 1 tablet once a day Vitamin D [facility] [address]-11 Active not defined Benzonatate [facility] 32995535003 200 MG Orally Sep 04, Active 1 capsule Three times a 2018 day Ambien [facility] 41531714365 10 MG Orally Active 1 tablet Once a day at bedtime as needed Celexa [facility] 04539503367 40 MG Orally Active 1 tablet Once a day HANDICAP ND 0 January 01, Active as PLACARD 2018 directed Voltaren [facility] 40765547812 1 % topically Active not Four times a defined day Magnesium [facility] 41005572252 500 MG Orally Active 1/2 tablet Gluconate daily Results Name Result Date Reference Range Unit Abnormality Flag EAR IRRIGATION BY LAVAGE Summary Purpose eClinicalWorks Submission
--- OUTSIDE RECORDS SUMMARY | 2018-09-25 14:33 | XMS REPORT ---
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 Problem Flat foot [pes planus] (acquired), M21.40 Active unspecified foot Problem Chronic kidney disease, stage IV N18.4 Active (severe) Problem Mild mental retardation F70 Active Assessment Mild mental retardation F70 Active Assessment Labile blood pressure R09.89 Active Assessment Peripheral neuropathy G62.9 Active Problem Hypomagnesemia E83.42 Active Problem Peripheral neuropathy G62.9 Active Assessment Diarrhea of presumed infectious R19.7 Active origin Problem Obesity E66.9 Active Problem Hypertension I10 Active Medications Medication Code Code Instructions Start End Status Dosage System Date Date Lexapro ND 06934786226 20 MG Orally Active 0.5 tablet Once a day Amlodipine ND 53994813995 10 MG Orally Active 1 tablet Besylate Once a day Melatonin ND 90640332315 10 MG Orally Active as directed Lamictal ND 40477910679 100 MG Orally Active 1 tablet once a day Voltaren ND 32271774377 1 % topically Active not defined Four times a day Magnesium ND 04588948599 500 MG Orally Active 1/2 tablet Gluconate daily Celexa [facility] 28895469090 40 MG Orally Active 0.5 tablet Once a day Fish Oil [facility] 98539506296 1000 MG Orally Active 1 capsule Once a day CoQ10 [facility] 65346309517 200 MG Orally Active 1 capsule Once a day with a meal Loratadine [facility] 00336458111 10 MG Orally Active 1 tablet PRN Ambien [facility] 49850938578 10 MG Orally Active 1 tablet at Once a day bedtime as needed HANDICAP ND 0 January 01, Active as directed CARLOS[address] [facility] 86562231933 40 MG Orally Active 1 tablet in Once a day the evening Crestor [facility] 52075594132 20 MG Active TAKE 1 TABLET BY MOUTH AT BEDTIME Lyrica [facility] 07454750997 300 MG Orally Active 1 capsule Twice a day Results No Known Results Summary Purpose eClinicalWorks Submission
--- OUTSIDE RECORDS SUMMARY | 2018-09-25 14:33 | XMS REPORT ---
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
--- NOTE | 2018-09-25 15:30 | RAD REPORT ---
EXAM DESCRIPTION: Cheo Single View09/25/2018 3:24 pm CLINICAL HISTORY: cough COMPARISON: March 2018 FINDINGS: The lungs appear clear of acute infiltrate. The heart is normal size IMPRESSION: No acute abnormalities displayed
[2018-09-25] MEDS ORDERED: NA CHLORIDE 0.9% 1,000 ML ONE (15:35)
[2018-09-25 15:37] LABS: Absolute Lymphocytes (CBC) 1.6 K/uL (0.7-4.9); Absolute Monocytes 0.6 K/uL (0.1-1.3); Absolute Neutrophil 6.6 K/uL (1.8-8.0); Basophils % 0.7 % (0-1.3); Eosinophils % 3.8 % (0-4.4); Hematocrit 42.6 % (39.6-49.0); Lymphocytes % 17.6 % (15.3-44.8); MPV 10.8 fL (7.6-11.3); Monocytes % 6.4 % (3.3-12.3); RBC Red Blood Cell Count 4.97 M/uL (4.33-5.43)
[2018-09-25 15:39] LABS: Protime INR 1.04
[2018-09-25 15:56] LABS: Potassium 5.1 mmol/L (3.5-5.1)
[2018-09-25] MEDS ORDERED: CODEINE 30MG/APAP 300MG TAB ONE (16:35)
--- NOTE | 2018-09-25 16:57 | EDPHYS ---
Physician Documentation [facility] Name: Jose G Perera Age: 37 yrs Sex: Male : 1980 Arrival Date: 09/25/2018 Time: 14:28 Bed 23 Private MD: Anitra Estrada ED Physician Nathan Bass HPI: 09/25 16:04 This 37 yrs old Male presents to ER via Wheelchair with complaints of rn Weakness, Nausea, Dizziness. 16:04 The patient presents to the emergency department with weakness of the left lower rn extremity, right lower extremity. Onset: The symptoms/episode began/occurred this morning. Associated signs and symptoms: Pertinent positives: dizziness, Pertinent negatives: fever, headache, seizure, syncope, double vision, visual field changes, loss of vision. Severity of symptoms: At their worst the symptoms were moderate in the emergency department the symptoms have improved. The patient has experienced similar episodes in the past. Reports had outing, was walking around, felt lightheaded and dizzy, states legs gave out, no trauma, + recent bronchitis with abx, still coughing, reports generalized weakness and diaphoresis, now has improved over last few hours but not back to baseline completely. No focal neurological deficit.. Historical: - Allergies: 14:40 BACLOFEN; aa5 14:40 CEPHALOSPORINS; aa5 14:40 Demerol; aa5 14:40 Dilaudid; aa5 14:40 Levaquin; aa5 14:40 Morphine; aa5 14:40 Phenergan; aa5 - PMHx: 14:40 Hyperlipidemia; Gout; Pancreatitis; Diverticulitis; neuropathy; Anxiety; aa5 - PSHx: 14:40 Bowel resection; Hernia repair; Appendectomy; Hypospadius repair; Exploratory lap; aa5 - Immunization history:: Flu vaccine is up to date. - Social history:: Smoking status: Patient/guardian denies using tobacco. - Ebola Screening: : No symptoms or risks identified at this time. - Family history:: not pertinent. - Hospitalizations: : No recent hospitalization is reported. ROS: 16:04 Constitutional: Negative for fever, and weight loss, Eyes: Negative for injury, pain, rn redness, and discharge, Cardiovascular: Negative for chest pain, palpitations, and edema, Respiratory: Negative for wheezing, and pleuritic chest pain, Abdomen/GI: Negative for abdominal pain, nausea, vomiting, diarrhea, and constipation, MS/Extremity: Negative for injury and deformity, Skin: Negative for injury, rash, and discoloration, Neuro: Negative for headache, seizure. Exam: 16:04 Constitutional: This is a well developed, well nourished patient who is awake, alert, rn and in no acute distress. Head/Face: Normocephalic, atraumatic. Eyes: Periorbital areas with no swelling, redness, or edema. ENT: Nares patent. No nasal discharge, no septal abnormalities noted. Tympanic membranes are normal and external auditory canals are clear. Oropharynx with no redness, swelling, or masses, exudates, or evidence of obstruction, uvula midline. Mucous membranes moist. Neck: Trachea midline, no thyromegaly or masses palpated, and no cervical lymphadenopathy. Supple, full range of motion without nuchal rigidity, or vertebral point tenderness. No Meningismus. Cardiovascular: Regular rate and rhythm. No pulse deficits. Respiratory: Lungs have equal breath sounds bilaterally, clear to auscultation Abdomen/GI: soft, non-tender Skin: Warm, dry, no evidence of cellulitis. MS/ Extremity: Pulses equal, no cyanosis. Neurovascular intact. Full, normal range of motion. Equal circumference. Neuro: Awake and alert, GCS 15, oriented to person, place, time, and situation. Cranial nerves II-XII grossly intact. Motor strength 5/5 in all extremities. Sensory grossly intact. Cerebellar exam normal. Vital Signs: 14:40 BP 98 / 54; Pulse 67; Resp 18 S; Temp 97.7(TE); Pulse Ox 94% on R/A; Weight 98.88 kg aa5 (R); Pain 6/10; 15:18 BP 118 / 63; Pulse 71; Resp 20; Pulse Ox 100% on R/A; tl3 16:18 BP 122 / 68; Pulse 66; Resp 18; Pulse Ox 100% on 2 lpm NC; tl3 MDM: 14:44 Patient medically screened. rn 16:23 ED course: Feels much better with just fluids, no diaphoresis/lightheadedness, reports rn only pain to both legs, cramping, and requests pain medication, requests tylenol #3. Perhaps dehydration + his baseline autonomic dysfunction. . 16:55 Data reviewed: vital signs, nurses notes, lab test result(s), EKG, radiologic studies, rn and as a result, I will discharge patient. Counseling: I had a detailed discussion with the patient and/or guardian regarding: the historical points, exam findings, and any diagnostic results supporting the discharge/admit diagnosis, lab results, radiology results, the need for outpatient follow up, to return to the emergency department if symptoms worsen or persist or if there are any questions or concerns that arise at home. Response to treatment: the patient's symptoms have markedly improved after treatment, the patient's condition has returned to base line, the patient is now symptom free, patient is well hydrated. and as a result, I will discharge patient. Special discussion: I discussed with the patient/guardian in detail that at this point there is no indication for admission to the hospital. It is understood, however, that if the symptoms persist or worsen the patient needs to return immediately for re-evaluation. 09/25 14:59 Order name: CBC with Diff; Complete Time: 16:16 rn 09/25 14:59 Order name: Basic Metabolic Panel; Complete Time: 16:16 rn 09/25 14:59 Order name: Type And Screen rn 09/25 14:59 Order name: PT-INR; Complete Time: 16:16 rn 09/25 14:59 Order name: Ptt, Activated; Complete Time: 16:16 rn 09/25 14:59 Order name: Flu; Complete Time: 16:55 rn 09/25 14:59 Order name: EKG; Complete Time: 15:00 rn 09/25 14:59 Order name: XRAY Chest (1 view); Complete Time: 15:41 rn 09/25 14:59 Order name: Procalcitonin; Complete Time: 16:55 rn 09/25 14:59 Order name: Lactate; Complete Time: 15:56 rn 09/25 14:59 Order name: Blood Culture Adult (2) rn 09/25 14:59 Order name: IV Start; Complete Time: 16:17 rn 09/25 14:59 Order name: EKG - Nurse/Tech; Complete Time: 16:17 rn Administered Medications: 15:25 Drug: NS 0.9% 1000 ml Route: IV; Rate: 1000 ml; Site: right antecubital; Delivery: tl3 Primary tubing; 16:28 Drug: Tylenol #3 (300 mg-30 mg) 1 tablet Route: PO; tl3 Disposition: 09/25/18 16:56 Discharged to Home. Impression: Dehydration, Autonomic dysreflexia. - Condition is Stable. - Discharge Instructions: Dehydration, Adult, Near-Syncope. - Medication Reconciliation Form, Thank You Letter, Antibiotic Education, Prescription Opioid Use form. - Follow up: Private Physician; When: As needed; Reason: Recheck today's complaints, Re-evaluation by your physician. - Problem is new. - Symptoms have improved. Signatures: Dispatcher [employer] EDMS Nathan Bass MD MD rn Calderon, Audri RN RN aa5 Delores Freeman RN RN tl3 Ramana Thomas RN RN mg2 Corrections: (The following items were deleted from the chart) 18:13 16:56 09/25/2018 16:56 Discharged to Home. Impression: Dehydration; Autonomic mg2 dysreflexia. Condition is Stable. Forms are Medication Reconciliation Form, Thank You Letter, Antibiotic Education, Prescription Opioid Use. Follow up: Private Physician; When: As needed; Reason: Recheck today's complaints, Re-evaluation by your physician. Problem is new. Symptoms have improved. rn
--- NOTE | 2018-09-25 16:57 | ER ---
Nurse's Notes [facility] Name: Jose G Perera Age: 37 yrs Sex: Male : 1980 Arrival Date: 09/25/2018 Time: 14:28 Bed 23 Private MD: Anitra Estrada Diagnosis: Dehydration;Autonomic dysreflexia Presentation: 09/25 13:47 Onset of symptoms was September 24, 2018. Risk Assessment: Do you want to hurt yourself tl3 or someone else? Patient reports no desire to harm self or others. Initial Sepsis Screen: Does the patient meet any 2 criteria? No. Patient's initial sepsis screen is negative. Does the patient have a suspected source of infection? No. Patient's initial sepsis screen is negative. 14:37 Presenting complaint: Mother states: "acute onset of generalized weakness, dizziness, aa5 and diaphoresis". Denies vomiting. Pt currently reports dizziness. Pt's mother reports recent diagnosed with bronchitis and has completed antibiotics. Pt c/o sabrina leg pain. Transition of care: patient was not received from another setting of care. Care prior to arrival: None. 14:37 Method Of Arrival: Wheelchair aa5 14:37 Acuity: MANISHA 3 aa5 23:45 Onset of symptoms was September 24, 2018. tl3 Triage Assessment: 13:47 General: Appears distressed, uncomfortable, obese, well developed, well nourished. tl3 Historical: - Allergies: 14:40 BACLOFEN; aa5 14:40 CEPHALOSPORINS; aa5 14:40 Demerol; aa5 14:40 Dilaudid; aa5 14:40 Levaquin; aa5 14:40 Morphine; aa5 14:40 Phenergan; aa5 - PMHx: 14:40 Hyperlipidemia; Gout; Pancreatitis; Diverticulitis; neuropathy; Anxiety; aa5 - PSHx: 14:40 Bowel resection; Hernia repair; Appendectomy; Hypospadius repair; Exploratory lap; aa5 - Immunization history:: Flu vaccine is up to date. - Social history:: Smoking status: Patient/guardian denies using tobacco. - Ebola Screening: : No symptoms or risks identified at this time. - Family history:: not pertinent. - Hospitalizations: : No recent hospitalization is reported. Screenin:18 Abuse screen: Denies threats or abuse. Nutritional screening: No deficits noted. tl3 Tuberculosis screening: No symptoms or risk factors identified. Fall Risk None identified. Assessment: 14:59 General: Appears uncomfortable, well groomed, well developed, well nourished, Behavior tl3 is calm, cooperative, appropriate for age. Pain: Complains of pain in right leg and left leg. Neuro: Level of Consciousness is awake, alert, obeys commands, Oriented to person, place, time, situation, Appropriate for age Reports dizziness, weakness. 16:18 Reassessment: Patient appears in no apparent distress at this time. No changes from tl3 previously documented assessment. Patient and/or family updated on plan of care and expected duration. Pain level reassessed. Patient is alert, oriented x 3, equal unlabored respirations, skin warm/dry/pink. pt sleeping quietly, Dr Bass at bedside discussing POC, no needs at this time. Vital Signs: 14:40 BP 98 / 54; Pulse 67; Resp 18 S; Temp 97.7(TE); Pulse Ox 94% on R/A; Weight 98.88 kg aa5 (R); Pain 6/10; 15:18 BP 118 / 63; Pulse 71; Resp 20; Pulse Ox 100% on R/A; tl3 16:18 BP 122 / 68; Pulse 66; Resp 18; Pulse Ox 100% on 2 lpm NC; tl3 ED Course: 13:47 Patient admitted, IV remains in place. tl3 14:28 Patient arrived in ED. mr 14:29 Anitra Estrada is Private Physician. mr 14:38 Triage completed. aa5 14:38 Arm band placed on. aa5 14:42 Delores Freeman, RN is Primary Nurse. tl3 14:44 Nathan Bass MD is Attending Physician. rn 15:04 EKG done, by data reduction technician. reviewed by Nathan Bass MD. at1 15:18 Patient has correct armband on for positive identification. Placed in gown. Bed in low tl3 position. Call light in reach. Side rails up X2. Adult w/ patient. job foreman on. Pulse ox on. NIBP on. 15:18 No provider procedures requiring assistance completed. Inserted saline lock: 22 gauge tl3 in right antecubital area, using aseptic technique. Blood collected. 15:20 X-ray completed. Portable x-ray completed in exam room. Patient tolerated procedure kp1 well. 15:20 Initial lab(s) drawn, by me, sent to lab. First set of blood cultures drawn by me, tl3 X-ray(s) taken. 15:22 XRAY Chest (1 view) In Process Unspecified. EDMS Administered Medications: 15:25 Drug: NS 0.9% 1000 ml Route: IV; Rate: 1000 ml; Site: right antecubital; Delivery: tl3 Primary tubing; 16:28 Drug: Tylenol #3 (300 mg-30 mg) 1 tablet Route: PO; tl3 Outcome: 16:56 Discharge ordered by . rn 18:13 Patient left the ED. mg2 18:13 Admitted to ICU accompanied by nurse, via stretcher, on monitor, with chart. tl3 18:13 Condition: stable 18:13 Instructed on the need for admit, Demonstrated understanding of Signatures: Dispatcher [employer] EDMT Kizzy Yang mr Nathan Bass MD MD rn Calderon, Audri RN RN aa5 Alexia Cruz, trenching machine operator EKG Tat1 Lizzeth Glass kp1 Delores Freeman RN RN tl3 Ramana Thomas, EMRE RN mg2
--- NOTE | 2018-09-25 17:11 | EKG ---
Test Date: 2018-08-25 Test Time: 15:00:59 Extended Insurance Clerk: FABBY MEASUREMENT RESULTS: Intervals: Rate: 65 MO: 164 QRSD: 100 QT: 398 QTc: 413 [place]: P: 52 MO: 164 QRS: 43 T: 53 INTERPRETIVE STATEMENTS: Normal sinus rhythm Normal ECG Compared to ECG 03/26/2018 13:30:39 No significant changes Electronically Signed On 09-25-18 17:10:42 TELEPHONE AD TAKER by Marcus Leavitt
[2018-09-25 19:00] VITALS: TEMP 97.7
[2018-09-25 19:01] VITALS: O2SAT 100
[2018-09-25 19:03] VITALS: BP 122/68
== END 2018-09-25 18:13 | disposition home or self-care (01) ==
LOC: ER 14:24
DX: E86.0 Dehydration (principal); G90.4 Autonomic dysreflexia; E78.5 Hyperlipidemia, unspecified; Z88.1 Allergy status to other antibiotic agents; Z88.3 Allergy status to other anti-infective agents; Z88.5 Allergy status to narcotic agent; Z88.8 Allergy status to other drugs, medicaments and biological substances
CPT/HCPCS: 36415; 71045; 80048; 83605; 84145; 85025; 85610; 85730; 86850; 86900; 86901; 87040; 87804; 93005; 99285; J7030

== ENCOUNTER 2018-10-26 14:19 | Emergency (ER) | payer BC, OTHER ==
--- OUTSIDE RECORDS SUMMARY | 2018-10-26 14:23 | XMS REPORT ---
[...] Date Status Dosage System Date Azithromycin NDC 97592375490 250 MG Orally Sep 04, Active 2 tablets Once a day 2018 on the first day, then 1 tablet daily for 4 days Benzonatate NDC 51563107853 200 MG Orally Sep 04, Active 1 capsule Three times a 2019 day Results No Known Results Summary Purpose eClinicalWorks Submission
--- OUTSIDE RECORDS SUMMARY | 2018-10-26 14:23 | XMS REPORT ---
[...] Status Dosage System Date Date Lexapro ND 76094771034 20 MG Orally Active 0.5 tablet Once a day Amlodipine ND 26475725953 10 MG Orally Active 1 tablet Besylate Once a day Melatonin ND 24926514853 10 MG Orally Active as directed Lamictal ND 18100971413 100 MG Orally Active 1 tablet once a day Voltaren ND 70528314034 1 % topically Active not defined Four times a day Magnesium ND 30399179340 500 MG Orally Active 1/2 tablet Gluconate daily Celexa [facility] 47205987148 40 MG Orally Active 0.5 tablet Once a day Fish Oil [facility] 96805045431 1000 MG Orally Active 1 capsule Once a day CoQ10 [facility] 34401265944 200 MG Orally Active 1 capsule Once a day with a meal Loratadine [facility] 78216213140 10 MG Orally Active 1 tablet PRN Ambien [facility] 89448784426 10 MG Orally Active 1 tablet at Once a day bedtime as needed HANDICAP ND 0 January 01, Active as directed CARLOS2017 Simvastatin [facility] 88555334236 40 MG Orally Active 1 tablet in Once a day the evening Crestor [facility] 83296089223 20 MG Active TAKE 1 TABLET BY MOUTH AT BEDTIME Lyrica [facility] 01367735957 300 MG Orally Active 1 capsule Twice a day Results No Known Results Summary Purpose eClinicalWorks Submission
--- OUTSIDE RECORDS SUMMARY | 2018-10-26 14:23 | XMS REPORT | Clinical Summary ---
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 Hyperuricemia 06/29/2016 Renal insufficiency [...] Encounters Date Type Specialty Care Team Description 10/15/2018 Telephone Ophthalmology Center, Ophthalmology - Clinical Care 09/27/2018 Telephone Ophthalmology Jose Manuel Evans MD 09/10/2018 Telephone Ophthalmology [place], Ophthalmology - Clinical Care 09/09/2018 Telephone Ophthalmology Ras Marr MD 09/08/2018 Refill Rheumatology Elba Parekh MD 08/02/2018 Anesthesia Event Plastic Surgery Messi Mchugh, WARP CHANGER 08/02/2018 Surgery Plastic Surgery Isaac Friedman BILATERAL DORIS Sesay MD RECTUS RESECTION, BIOPSY OF EXTRAOCULAR MUSCLE-BOTH EYES, SCARRING FROM PREVIOUS EXTRAOCULAR MUSCLE SURGERY 08/02/2018 [facility] Plastic Surgery Isaac Friedman Alternating exotropia Encounter MD Lázaro 06/05/2018 Office Visit Gastroenterology Josette Larios DO Gastroparesis (Primary Dx); Incontinence of feces, unspecified fecal incontinence type 05/16/2018 Hospital Radiology Ras Marr MD Anisocoria Encounter 05/16/2018 Hospital Radiology Ras Marr MD Exophthalmos Encounter 05/15/2018 Orders Only Ophthalmology Ras Marr MD [...] Incontinence of feces, unspecified fecal incontinence type after 10/25/2017 Social History Tobacco Use Types Packs/Day Years [...] Taken Blood Pressure 147/67 08/02/2018 10:25 AM GENERAL FARMER Pulse 84 08/02/2018 10:25 AM GENERAL FARMER Temperature 36.1 C (97 F) 08/02/2018 10:25 AM GENERAL FARMER Respiratory Rate 12 08/02/2018 10:25 AM GENERAL FARMER Oxygen Saturation 97% 08/02/2018 10:25 AM GENERAL FARMER Inhaled Oxygen Concentration - - Weight 98.9 kg (218 lb) 07/23/2018 5:00 PM GENERAL FARMER Height 162.6 cm (5' 4") 07/23/2018 5:00 PM GENERAL FARMER Body Mass Index 37.42 07/23/2018 5:00 PM GENERAL FARMER Plan of Treatment Date Type Specialty Care Team Description 12/09/2018 Office Visit Ophthalmology Ras Marr MD [address] [facility] [address] [place] [address] [phone] 05/07/2019 Office Visit Rheumatology Elba Parekh MD [address] [facility] [address] [place] [address] [phone] Health Maintenance Due Date Last Done Comments INFLUENZA VACCINE 03/20/2018 Procedures Procedure Name Priority Date/Time Associated Comments Diagnosis SURGICAL PATHOLOGY Routine 08/02/2018 9:00 Results for this REQUEST AM GENERAL FARMER procedure are in the results section. SURGICAL PATHOLOGY Routine 08/02/2018 9:00 Results for this REQUEST AM GENERAL FARMER procedure are in the results section. [place] AN ELECTIVE Routine 08/02/2018 7:50 ENDOTRACHEAL AIRWAY AM GENERAL FARMER Procedure Note - Noris Nixon CRNA - 08/02/2018 7:50 AM GENERAL FARMER ANESTHESIA INTUBATION Performed by: Noris Nixon CRNA Authorized by: Rola Hall MD Location: OR Urgency: Elective Difficult Airway: No Resident/SIZING END BANDER/AA: Noris Nixon CRNA Performed by: resident/SIZING END BANDER/AA Preoxygenated with 100% O2: Yes C-spine Precautions [...] STRABISMUS SURGERY 08/02/2018 7:30 Alternating exotropia AM GENERAL FARMER POC PANEL 4 Routine 08/02/2018 6:48 Results for this AM GENERAL FARMER procedure are in the results section. CT [...] BOTH EYES AM CDT remission status unspecified after 10/25/2017 Results Surgical pathology request (08/02/2018 9:00 AM GENERAL FARMER)Only the most recent of2 resultswithin the time period is included. [facility] DEPARTMENT OF PATHOLOGY AND GENOMIC MEDICINE Surgical pathology See link below for PDF Lab [facility] DEPARTMENT OF report Report PATHOLOGY AND GENOMIC MEDICINE Result status This is Supplemental Report [facility] DEPARTMENT OF for [id number] PATHOLOGY AND GENOMIC MEDICINE Performing Organization Address City/State/Zipcode Phone Number [facility] DEPARTMENT OF PATHOLOGY AND [address] [place] [address] GENOMIC MEDICINE POC panel 4 (08/02/2018 6:48 AM GENERAL FARMER) POC sodium 131 (L) 135 - 148 mmol/L [facility] POC potassium 4.7 3.5 - 5.0 mmol/L [facility] POC hematocrit 37 (L) 41 - 51 % [facility] Comment: Meter ID: [id number] Parts Technician: Yovani Valenzuela POC glucose 101 (H) 65 - 99 mg/dL [facility] Performing Organization Address City/[facility]/Zipcode Phone Number [facility] DEPARTMENT OF PATHOLOGY AND [address] [place] [address] [address] [address] [address] Orbits W Wo Contrast (05/16/2018 3:11 [...] the orbits. Stable bilateral exophthalmus. Mild sinusitis. [id number] Procedure Note Hm Interface, Radiology Results Incoming - 05/16/2018 4:35 [...] the orbits. Stable bilateral exophthalmus. Mild sinusitis. [id number] Performing Organization Address City/State/Zipcode Phone Number [address] [place] [address] Estimated GFR (05/16/2018 1:53 PM CDT) Estimated GFR 63 mL/min/1.73 m2 [facility] DEPARTMENT OF Comment: PATHOLOGY AND GENOMIC CatergoryUnitsInterpretation MEDICINE G1 >=90 Normal or high G2 60-89Mildly decreased [id number] to moderately decreased E7l41-35Nijhmxrokp to severely decreased G4 15-29Severely decreased G5 <15Kidney failure The eGFR was calculated using the Chronic Kidney Disease Epidemiology Collaboration (CKD-EPI) equation. Interpretation is based on recommendations of the National Kidney Foundation-Kidney Disease Outcomes Quality Initiative (NKF-KDOQI) published in 2014. Specimen Blood Performing Organization Address City/[facility] Phone Number [facility] DEPARTMENT OF PATHOLOGY AND [address] [place] [address] [employer] POC creatinine (05/16/2018 1:53 PM CDT) POC creatinine 1.4 (H) 0.7 - 1.2 mg/dl [facility] DEPARTMENT OF PATHOLOGY AND Comment: [employer] Meter ID: [id number] Parts Technician: Audra Marco Specimen Blood Performing Organization Address [facility] Phone Number [facility] DEPARTMENT OF PATHOLOGY AND [address] [place], [place] [id number] [facility] Renin activity (05/07/2018 2:50 PM CDT) Renin activity 1.13 0.25 - 5.82 ng/mL/h [facility] Comment: DIAGNOSTICS/[employer] [facility] This test was developed and its analytical performance characteristics have been determined by [facility]. It has not been cleared or approved by FDA. This assay has been validated pursuant to the CLIA regulations and is used for clinical purposes. Specimen Blood Narrative Performed At FASTING:NO [facility] FASTING: NO Resulting Agency Comment Performing Organization Information: Site ID: [id number] Name: [employer] [facility], Address: [address] [place] [phone] Director: Narcisa Victor MD,PhD,IONA Performing Organization Address City/[facility] Phone Number [facility] [phone] [place] [address] [facility] Catecholamines fractionated, plasma (05/07/2018 2:50 PM CDT) Epinephrine <20 pg/mL [facility] Comment: [employer] [facility] This test was developed and its analytical performance characteristics have been determined by [facility]. It has not been cleared or approved by FDA. This assay has been validated pursuant to the CLIA regulations and is used for clinical purposes. Norepinephrine 214 (L) pg/mL [facility] Comment: [facility] This test was developed and its analytical performance characteristics have been determined by [facility]. It has not been cleared or approved by FDA. This assay has been validated pursuant to the CLIA regulations and is used for clinical purposes. Dopamine <20 pg/mL [facility] Comment: [facility] This test was developed and its analytical performance characteristics have been determined by [facility]. It has not been cleared or approved by FDA. This assay has been validated pursuant to the CLIA regulations and is used for clinical purposes. Catecholamines, total 252 pg/mL [facility] Comment: [facility] Adult Reference Ranges for Catecholamines, Plasma Epinephrine Supine:<50 pg/mL Upright: <95 pg/mL NorepinephrineSupine:112-658 pg/mL Upright: 217-1109 pg/mL DopamineSupine:<10 pg/mL Upright: <20 pg/mL Total (N+E+D) Supine:123-671 pg/mL Upright: 242-1125 pg/mL Pediatric Reference Ranges for Catecholamines, Plasma Due to stress, plasma catecholamine levels are generally unreliable in infants and small children. Urinary catecholamine assays are more reliable. Epinephrine 3-15 Years Supine:< vy=508 pg/mL Upright: No Reference Range Available Norepinephrine 3-15 Years Supine:< vj=5302 pg/mL Upright: No Reference Range Available Dopamine 3-15 Years Supine:<60 pg/mL Upright: No Reference Range Available Pediatric data from J [employer]at[employer] (1993) 617:304-307. This test was developed and its analytical performance characteristics have been determined by [facility]. It has not been cleared or approved by FDA. This assay has been validated pursuant to the CLIA regulations and is used for clinical purposes. Specimen Blood Narrative Performed At FASTING:NO [facility] FASTING: NO Resulting Agency Comment Performing Organization Information: Site ID: [id number] Name: [email or web address] [facility], Address: [address] [place] [phone] Director: Narcisa Victor MD,PhD,IONA Performing Organization Address [facility] Phone Number ONIEL RAYA/TAN [phone] [place] [address] [phone] [facility] Aldosterone, serum (05/07/2018 2:50 PM CDT) Aldosterone 6 ng/dL [facility]/TAN Comment: [facility] Adult Reference Ranges for Aldosterone, LC/MS/MS: Upright 8:00-10:00 am< or=28 ng/dL Upright 4:00-6:00 pm < or=21 ng/dL Supine8:00-10:00 am3-16 ng/dL This test was developed and its analytical performance characteristics have been determined by [facility]. It has not been cleared or approved by FDA. This assay has been validated pursuant to the CLIA regulations and is used for clinical purposes. Specimen Blood Narrative Performed At FASTING:NO [facility] FASTING: NO Resulting Agency Comment Performing Organization Information: Site ID: [id number] Name: [employer] [facility], Address: [address] [place] [phone] Director: Narcisa Victor MD,PhD,IONA Performing Organization Address [facility] Phone Number TVTY/TAN [phone] [place] [address] [facility] Hemoglobin A1c (05/07/2018 2:50 PM CDT) Hemoglobin A1C 5.8 (H) <5.7 % of total [facility] [facility] Comment: Hgb HARRIS For someone without known diabetes, a hemoglobin [...] Performing Organization Information: Site ID: [id number] Name: [facility] Address: [address] [place] [address] Director: Maeve Barbour Performing Organization Address [facility] Phone Number TVTY VIDA [address] [place] [address] Immunoglobulin G subclass 4 (05/07/2018 10:57 AM CDT) Immunoglobulin G subclass 4 15.0 4 - 86 mg/dL [facility] Specimen Blood Resulting Agency Comment Performing Organization Information: Site ID: [id number] Name: [facility], Address: [address] [place] [phone] Director: Narcisa Victor MD,PhD,IONA Performing Organization Address [facility] Phone Number [facility] [address] [facility] OCT, Optic Nerve - OU (05/07/2018 9:37 AM CDT) Narrative Performed At Automated Visual Field, Extended - OU (05/07/2018 9:37 AM CDT) Narrative Performed At Right Eye Threshold was 24-2. Strategy was RISA. Left Eye Threshold was 24-2. Strategy was RISA. Basic metabolic panel (01/16/2018 1:59 PM CDT) Glucose 151 (H) 65 - 139 mg/dL [facility] Comment: VIDA Non-fasting reference interval BUN, whole blood 24 7 - 25 mg/dL [facility] Creatinine 1.49 (H) 0.60 - 1.35 mg/dL [facility] EGFR Non-Afr. Djiboutian 59 (L) > OR=60 [facility] mL/min/1.73m2 VIDA EGFR 68 > OR=60 [facility] mL/min/1.73m2 [facility] BUN/creatinine ratio 16 6 - 22 (calc) [facility] Sodium 142 135 - 146 mmol/L [facility] Potassium 4.7 3.5 - 5.3 mmol/L [facility] [employer] [facility] Chloride 105 98 - 110 mmol/L [facility] CO2 28 20 - 31 mmol/L [facility] Calcium 9.6 8.6 - 10.3 mg/dL [facility] Specimen Blood Narrative Performed At FASTING:NO [facility] FASTING: NO Resulting Agency Comment Performing Organization Information: Site ID: [id number] Name: [facility] Address: [address] [place] [phone] Director: Maeve Barbour Performing Organization Address City/[facility] Phone Number [facility] V[facility] [address] [place] [address] [phone] Vascular endothelial growth factor (VEGF) (12/11/2017 10:25 AM CDT) [facility] endothelial 34 31 - 86 pg/mL [employer] growth factor Comment: [employer] [facility] This test was performed using a kit that has not been cleared or approved by the FDA. The analytical performance characteristics of this test have been determined by [facility]. This test should not be used for diagnosis without confirmation by other medically established means. Narrative Performed At FASTING: UNKNOWN [facility] Resulting Agency Comment Performing Organization Information: Site ID: [id number] Name: [facility], Address: [address] [place] [phone] Director: Narcisa Victor MD,PhD,IONA Performing Organization Address [facility] Phone Number TVTY/TAN[address] [address] [facility] Automated Visual Field, Extended - OU (12/11/2017 8:45 AM CDT) Narrative Performed At Right Eye Threshold was 24-2. Strategy was RISA. Left Eye Threshold was 24-2. OCT, Optic Nerve - OU (12/11/2017 8:45 AM CDT) Narrative Performed At after 10/25/2017 Insurance Payer Benefit Plan / Group Subscriber ID Type Phone Address MEDICAID MEDICAID xxxxxxxxx Medicaid BCBS [employer]UE CROSS xxxxxxxxxxxx PPO MEDICARE MEDICARE PART A AND B xxxxxxxxxxx Medicare [place], [place] Advance Directives Patient has advance care planning documents on file. For more information, please contact:Nigel Gonzalez[address] [place] [address]
--- OUTSIDE RECORDS SUMMARY | 2018-10-26 14:23 | XMS REPORT ---
[...] Medications Results No Known Results Summary Purpose [employer]ong[employer] Network Submission
--- OUTSIDE RECORDS SUMMARY | 2018-10-26 14:23 | XMS REPORT ---
[...] NDC 0 Active not defined Azithromycin ND 56578204387 250 MG Orally Sep 04, Active 2 tablets Once a day 2018 on the first day, then 1 tablet daily for 4 days Amlodipine ND 03064801587 10 MG Orally Active 1 tablet Besylate Once a day Fish Oil ND 16164690248 1000 MG Orally Active 1 capsule Once a day Lyrica ND 78190458900 300 MG Orally Active 1 capsule Twice a day Crestor [facility] [address]-05 Active not defined Melatonin [facility] 53965945707 10 MG Orally Active as directed Loratadine [facility] 27783462691 10 MG Orally Active 1 tablet PRN Simvastatin [facility] 15376664878 40 MG Orally Active 1 tablet Once a day in the evening ZyrTEC [facility] 90714205582 10 MG Orally Active 1 tablet Once a day CoQ10 [facility] 57654459762 200 MG Orally Active 1 capsule Once a day with a meal Lamictal [facility] 74473929656 100 MG Orally Active 1 tablet once a day Vitamin D [facility] [address]-79 Active not defined Benzonatate [facility] 66630549058 200 MG Orally Sep 04, Active 1 capsule Three times a 2018 day Ambien [facility] 95010172717 10 MG Orally Active 1 tablet Once a day at bedtime as needed Celexa [facility] 51570550085 40 MG Orally Active 1 tablet Once a day HANDICAP ND 0 January 01, Active as PLACARD 2018 directed Voltaren [facility] 61938482597 1 % topically Active not Four times a defined day Magnesium [facility] 50584676157 500 MG Orally Active 1/2 tablet Gluconate daily Results Name Result Date Reference Range Unit Abnormality Flag EAR IRRIGATION BY LAVAGE Summary Purpose eClinicalWorks Submission
--- OUTSIDE RECORDS SUMMARY | 2018-10-26 14:24 | XMS REPORT ---
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 99309201264 10 MG Orally Active 1 tablet at Once a day bedtime as needed Lyrica [facility] 59779214618 300 MG Orally Active 1 capsule Twice a day Melatonin [facility] 18285563140 10 MG Orally Active as directed ZyrTEC [facility] 23522937822 10 MG Orally Active 1 tablet Once a day Vitamin D [facility] 41878203874 1000 UNIT Active 3 capsule Orally Once a day Magnesium ND 38913208780 500 MG Orally Active 1/2 tablet Gluconate daily Loratadine ND 74469931291 10 MG Orally Active 1 tablet PRN Lamictal ND 54919163078 100 MG Orally Active 1 tablet once a day Polytrim ND 84465928825 21422-9.1 Sep 19, Sep 24, Active 1 drop into UNIT/ML 2018 2018 affected Ophthalmic Four eye times a day Amlodipine ND 69074214079 10 MG Orally Active 1 tablet Besylate Once a day Xyzal NDC 0 5 mg orally Active 1 tab daily Crestor ND 23741778290 40 MG Orally Active 1 tablet Once a day Voltaren [facility] 05286578270 1 % topically Active not defined Four times a day CoQ10 ND 05553416810 200 MG Orally Active 1 capsule Once a day with a meal Benzonatate ND 08051483488 200 MG Orally Sep 04, Active 1 capsule Three times a 2018 day Simvastatin ND 75179200490 40 MG Orally Active 1 tablet in Once a day the evening Celexa ND 11644845848 40 MG Orally Active 1 tablet Once a day Fish Oil ND 80274339836 1000 MG Orally Active 1 capsule Once a day Azithromycin ND 52259869764 250 MG Orally Sep 04, Active 2 tablets Once a day 2018 on the first day, then 1 tablet daily for 4 days Results No Known Results Summary Purpose eClinicalWorks Submission
--- OUTSIDE RECORDS SUMMARY | 2018-10-26 14:24 | XMS REPORT ---
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9 Active Problem 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 Problem 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 Problem Peripheral neuropathy G62.9 Active Problem CAREY (nonalcoholic steatohepatitis) K75.81 Active Problem Obesity E66.9 Active Medications Medication Code Code Instructions Start End Status Dosage System Date Date Lamictal ND 94269061668 100 MG Orally Active 1 tablet once a day Celexa ND 77658115215 40 MG Orally Active 1 tablet Once a day Melatonin ND 39529828278 10 MG Orally Active as directed Loratadine ND 24309873774 10 MG Orally Active 1 tablet PRN Xyzal NDC 0 5 mg orally Active 1 tab daily CoQ10 ND 39547352769 200 MG Orally Active 1 capsule Once a day with a meal ZyrTEC [facility] 55243352655 10 MG Orally Active 1 tablet Once a day Fish Oil ND 85612064073 1000 MG Orally Active 1 capsule Once a day Voltaren ND 56387972756 1 % topically Active not defined Four times a day Amlodipine ND 96902972230 10 MG Orally Active 1 tablet Besylate Once a day Benzonatate ND 06640022365 200 MG Orally Sep 04, Active 1 capsule Three times a 2019 day Simvastatin ND 02679781983 40 MG Orally Active 1 tablet in Once a day the evening Magnesium ND 79005588578 500 MG Orally Active 1/2 tablet Gluconate daily Ambien ND 81362694377 10 MG Orally Active 1 tablet at Once a day bedtime as needed Azithromycin ND 50168019157 250 MG Orally Sep 04, Active 2 tablets Once a day 2018 on the first day, then 1 tablet daily for 4 days HANDICAP PLACARD ND 0 January 01, Active as directed 2017 Lyrica ND 61276241954 300 MG Orally Active 1 capsule Twice a day Vitamin D ND 18089386110 1000 UNIT Active 3 capsule Orally Once a day Crestor ND 26847091110 40 MG Orally Active 1 tablet Once a day Results No Known Results Summary Purpose eClinicalWorks Submission
[2018-10-26] MEDS ORDERED: NA CHLORIDE 0.9% 1,000 ML ONE ×3 (15:41→18:22)
[2018-10-26 15:51] LABS: Absolute Monocytes 0.6 K/uL (0.1-1.3); Absolute Neutrophil 4.6 K/uL (1.8-8.0); Basophils % 0.6 % (0-1.3); Eosinophils % 6.9 % (0-4.4); Hematocrit 39.8 % (39.6-49.0); Lymphocytes % 15.3 % (15.3-44.8); MPV 10.6 fL (7.6-11.3); Monocytes % 9.5 % (3.3-12.3); RBC Red Blood Cell Count 4.56 M/uL (4.33-5.43)
[2018-10-26 16:09] LABS: ALT/SGPT 29 U/L (12-78); AST/SGOT 24 U/L (15-37); Albumin 3.1 g/dL (3.4-5.0); Alkaline Phosphatase 89 U/L (45-117); BUN Blood Urea Nitrogen 28 mg/dL (7-18); Bicarbonate 30 mmol/L (21-32); Bilirubin Direct 0.1 mg/dL (0-0.2); Bilirubin Total 0.3 mg/dL (0.2-1.0); CKMB Creatine Kinase MB 1.1 ng/mL (0.3-3.6); Creatine Phosphokinase 236 U/L (39-308); Glucose Level 93 mg/dL (74-106); Lipase 90 U/L (73-393); Protein, Total 7.6 g/dL (6.4-8.2); Protime INR 1.12; Sodium Level 143 mmol/L (136-145); Troponin (Emerg Dept Use Only) < 0.02 ng/mL (0.0-0.045)
[2018-10-26] MEDS ORDERED: VANCOMYCIN/NS 1 gm 1 GM/250 ML BAG IV ONE (16:15)
--- NOTE | 2018-10-26 16:53 | RAD REPORT ---
EXAM DESCRIPTION: RAD - Chest Single View - 10/26/2018 4:36 pm CLINICAL HISTORY: Cough, recurring fever COMPARISON: September 2018 TECHNIQUE: AP portable chest image was obtained 1616 hours . FINDINGS: No focal consolidations seen. Increased density over each lung base is believed to be a co mbination of overlying soft tissues and pericardial fat. True lung base infiltrate is doubtful. No fa ilure or volume overload. Heart and vasculature are normal. No measurable pleural effusion and no pne umothorax. No acute bony abnormality seen. No acute aortic findings suspected. IMPRESSION: No acute cardiopulmonary finding and no significant change from comparison. Lung base assessment is limited. If the patient has localizing lung base symptoms or remains symptoma tic, followup two view imaging may be helpful.
[2018-10-26] MEDS ORDERED: AZTREONAM 2 GM in NA CHLORIDE 0.9% 100 ML IV ONE (17:00)
--- NOTE | 2018-10-26 17:19 | RAD REPORT ---
EXAM DESCRIPTION: CT - Chest Abd Pelvis Wo Con - 10/26/2018 5:02 pm CLINICAL HISTORY: Cough, chest pain, abdominal pain COMPARISON: None. TECHNIQUE: During dynamic enhancement using 100 milliliters nonionic IV contrast, axial 5 millimeter thick images of the chest, abdomen and pelvis were obtained. Biphasic technique was utilized through the abdomen. Oral contrast was administered. All CT scans are performed using dose optimization technique as appropriate and may include automated exposure control or mA/KV adjustment according to patient size. FINDINGS: The lungs are clear of mass and infiltrate. Minimal scarring and atelectasis changes are p resent. No pneumothorax or pleural effusion. No chest wall mass or abnormal axillary lymphadenopathy seen. Mediastinal and hilar regions show no mass or lymphadenopathy. No significant cardiac findin g. The liver, spleen and pancreas show no focal findings. Gallbladder is absent. Biliary tree within no rmal limits. No hydronephrosis or obstructing calculi. No acute renal parenchymal process. Isodense masses and mary lonephritis are not excluded on a noncontrast study. No urinary bladder abnormality. No significant p rostate or seminal vesicle abnormality. No significant adrenal finding. No acute or significant stomach or small bowel finding. No appendicitis findings. There is moderate s tool volume throughout the colon. Patient has mild valadez diverticulosis with more prominent sigmoid div erticulosis. No diverticulitis, mass or acute colon process. Sigmoid anastomotic site shows no suspic ious finding. No free air, free fluid or inflammatory stranding. No hernia, mass or bulky lymphadenopathy. No significant bone or vascular finding. IMPRESSION: CT chest imaging shows no mass, lymphadenopathy or other significant finding. CT abdomen and pelvis imaging shows no significant or suspicious finding. Nonacute findings detailed in the body of the report.
--- NOTE | 2018-10-26 18:51 | P.CNS ---
Date of Consult: 10/26/18 Reason for Consult: ED Requesting Physician: Valerio Hussein Primary Care Provider: Anitra Estrada Chief Complaint: cough History of Present Illness: Patient is here for cough. He has been having this for several weeks. The patient has been to the urgent care and had a zpac. He has been to the office and seen Bertrand Estrada. Was started on decongestants. He was doing well yesterday. However he was coughing and having sore throat all day today and was brought to the ER. Was found to have a low bp of 90/50s started on fluids. Has recieved 3 lts. The patient has improved. His mother is in the room and knows his entire history, she is a former nurse. States his temp was 100.2 this am axillary. He has amyloid and is being worked up in [facility]. The patient has a history of ckd. His last creatine we have was in the begining of Sep was 1.8. The patient is no signs of pancreatitis. Allergies Cephalosporins Allergy (Severe, Verified 12/20/17 23:26) Anaphylaxis baclofen Allergy (Intermediate, Verified 12/20/17 23:26) Itching/Hives/Rash hydromorphone HCl [From Dilaudid] Allergy (Intermediate, Verified 12/20/17 23:26 ) itching redness meperidine HCl [From Demerol] Allergy (Intermediate, Verified 12/20/17 23:26) Itching promethazine HCl [From Phenergan] Allergy (Intermediate, Verified 12/20/17 23:26 ) itching swelling levofloxacin [From Levaquin] Allergy (Unknown, Verified 12/20/17 23:26) itching redness morphine Allergy (Verified 12/20/17 23:26) Hives/Rash Home Medications: Lamotrigine [Lamictal] 100 mg PO BEDTIME 09/30/11 Loratadine [Claritin*] 10 mg PO BEDTIME 04/20/15 Pregabalin [Lyrica] 300 mg PO BID 04/20/15 Ubidecarenone [Co Q-10] 200 mg PO DAILY 04/20/15 Zolpidem Tartrate [Ambien] 5 mg PO BEDTIME 04/20/15 Magnesium Oxide [Mag 0X*] 400 mg PO DAILY 01/09/16 Diphenox/Atropine [Lomotil*] 0.5 tab PO BEDTIME 12/20/17 Domperidome 10 mg PO AC 12/20/17 Cholecalciferol (Vitamin D3) [Vitamin D 1000 Iu Tab*] 1 tab PO SEECOM 03/26/18 Citalopram [Celexa*] 40 mg PO BEDTIME 03/26/18 Febuxostat [Uloric] 40 mg PO BEDTIME 03/26/18 Morris-3/Dha/Epa/Fish Oil [Fish Oil 1,000 mg Softgel] 1,000 mg PO DAILY 03/26/18 Rosuvastatin Calcium [Crestor] 20 mg PO BEDTIME 03/26/18 Colchicine [Colcrys *] 0.6 mg PO BID PRN #10 tab 03/27/18 - Past Medical/Surgical History Diabetic: No -: Recurrent Diverticulitis -: Hypospadias with history of surgery -: Pancreatitis-chronic -: Mental Retardation (11 Year Old Level) -: Gastroparesis -: Neuropathy -: Autonomic dysfunction -: Right eye aniscoria -: Multiple myeloma, smoldering type -: Obesity -: GERD -: Fatty liver -: Appendectomy -: Bowel resection -: Hernia repair -: Bilateral Eye Sx (Muscle Adjustment) -: Exploratory laparotomy -: Repair of hypospadias Psychosocial/ Personal History: The patient lives with his parents. He is fully dependent on them. - Family History Mother Notes: Mom stated that "he is adopted" - Social History Smoking Status: Never smoker Alcohol use: No CD- Drugs: No Caffeine use: Yes Review of Systems 10-point ROS is otherwise unremarkable ENT: Nose Congestion Respiratory: Cough (produced a few tsps of green phlegm this morning) Physical Examination General: Alert, In no apparent distress HEENT: Other (swelling of the nasal mucosa and ulceration of the oropharynx) Laboratory Data (last 24 hrs) 10/26/18 15:34: PT 13.2 H, INR 1.12, APTT 38.2 H 10/26/18 15:34: WBC 6.8, Hgb 13.0 L, Hct 39.8, Plt Count 170 10/26/18 15:34: Sodium 143, Potassium 5.0, BUN 28 H, Creatinine 2.20 H, Glucose 93, Total Bilirubin 0.3, AST 24, ALT 29, Alkaline Phosphatase 89, Lipase 90 - Problems (1) Upper respiratory tract infection Current Visit: Yes Status: Acute Plan: Patient is on xyzal. CXR and ct are negative. Will send him home on decongestants Qualifiers: URI type: unspecified viral URI Qualified Code(s): J06.9 - Acute upper respiratory infection, unspecified (2) CKD (chronic kidney disease), stage III Onset Date: 01/10/16 Current Visit: No Status: Acute Plan: Patient baseline is creatine was 1.8. He was after 2.2 after a lt. Has had almost 2 more liters. He is tolerating fluids. Asked if he wants to be admitted. States he would rather go home. Will comply. The patients mother is in agreement. If he worsens he can call the hospital and ask for me by name. Or Anitra on Sunday morning Physician Review: Patient Assessed, Agree with Above Assessment and Plan Critical Care: No Time Spent Managing Pts care (In Minutes): 30
--- NOTE | 2018-10-26 19:04 | ER ---
Nurse's Notes [facility] Name: Jose G Perera Age: 37 yrs Sex: Male : 1980 Arrival Date: 10/26/2018 Time: 14:20 Bed 6 Private MD: Diagnosis: Fever, unspecified;Bronchitis, not specified as acute or chronic;Hypotension;Volume depletion;Weakness;Unspecified kidney failure Presentation: 10/26 14:46 Presenting complaint: Mother states: fever, cough, for 8-10 weeks, has been taking medications and antibiotics. today he is running a fever, and has tremor in his hands, new. Transition of care: patient was not received from another setting of care. Onset of symptoms was August 2018. Risk Assessment: Do you want to hurt yourself or someone else? Patient reports no desire to harm self or others. Initial Sepsis Screen: Does the patient meet any 2 criteria? No. Patient's initial sepsis screen is negative. Does the patient have a suspected source of infection? No. Patient's initial sepsis screen is negative. Care prior to arrival: None. 14:46 Method Of Arrival: Wheelchair 14:50 Acuity: MANISHA 2 Triage Assessment: 14:48 General: Appears in no apparent distress. uncomfortable, Behavior is cooperative, ch appropriate for age. Pain: Denies pain. Historical: - Allergies: 14:48 BACLOFEN; 14:48 CEPHALOSPORINS; 14:48 Demerol; 14:48 Dilaudid; 14:48 Levaquin; 14:48 Morphine; 14:48 Phenergan; - PMHx: 14:48 Anxiety; Diverticulitis; Gout; Hyperlipidemia; neuropathy; Pancreatitis; mutiple ch myeloma; amyldosis; 14:50 bradycardia, hypotension, hypertension; seizure due to hypoxia; - PSHx: 14:48 Bowel resection; Hernia repair; Appendectomy; Hypospadius repair; Exploratory lap; - Immunization history:: Adult Immunizations up to date, Flu vaccine is up to date. - Social history:: Smoking status: Patient/guardian denies using tobacco, Patient/guardian denies using alcohol, street drugs. - Ebola Screening: : Patient negative for fever greater than or equal to 101.5 degrees Fahrenheit, and additional compatible Ebola Virus Disease symptoms Patient denies exposure to infectious person Patient denies travel to an Ebola-affected area in the 21 days before illness onset No symptoms or risks identified at this time. Screenin:19 Abuse screen: Denies threats or abuse. Denies injuries from another. Nutritional aj1 screening: No deficits noted. Tuberculosis screening: No symptoms or risk factors identified. Assessment: 15:19 General: Appears in no apparent distress. uncomfortable, Behavior is calm, cooperative, aj1 appropriate for age. Pain: Complains of pain in right leg and left leg Pain does not radiate. Neuro: Level of Consciousness is awake, alert, obeys commands, Oriented to person, place, time, situation. Cardiovascular: Heart tones S1 S2 present Rhythm is sinus rhythm. Respiratory: Reports cough that is hacking, persistent for the past 10 weeks, he started running fever today Airway is patent Respiratory effort is even, unlabored, Respiratory pattern is symmetrical, agonal Breath sounds are diminished in left posterior lower lobe and right posterior lower lobe. GI: Abdomen is round non-distended, Abd is soft and non tender X 4 quads. Reports diarrhea, Patient currently denies abdominal pain, nausea, vomiting. : No signs and/or symptoms were reported regarding the genitourinary system. EENT: No signs and/or symptoms were reported regarding the EENT system. 15:19 Derm: Skin is dry, Skin is pale. Musculoskeletal: No signs and/or symptoms reported aj1 regarding the musculoskeletal system. Circulation, motion, and sensation intact. 17:24 Reassessment: Patient appears in no apparent distress at this time. No changes from aj1 previously documented assessment. Patient and/or family updated on plan of care and expected duration. Pain level reassessed. Skin color has improved, patient still appears pale, but has more color than previous assessment. 17:25 Neuro: Level of Consciousness is awake, alert, obeys commands, Oriented to person, aj1 place, time, situation. 18:27 Reassessment: Patient appears in no apparent distress at this time. No changes from aj1 previously documented assessment. Patient and/or family updated on plan of care and expected duration. Pain level reassessed. Patient is alert, oriented x 3, equal unlabored respirations, skin warm/dry/pink. 18:35 Reassessment: Dr. Covarrubias at bedside to evaluate patient. aj1 19:05 Reassessment: Dr. Covarrubias states that patient told him that he would like to be aj1 discharged home, vitals are stable. Patient is to finish fluids and Vancomycin then be discharged home. 21:00 Reassessment: Vancomycin infusion completed. Patient's mother states that she would tl2 like to observe the patient for a little bit to make sure that his blood pressure does not drop again now that we have stopped giving him IV fluids. Will observe patient for changes in blood pressure and reassess dc when patient's mother reports that she is ready. 21:20 Reassessment: Patient's mother states that she feels comfortable taking the patient tl2 home at this time. Vital Signs: 14:48 Pulse 72; Resp 18; Temp 99.2; Pulse Ox 94% on R/A; Weight 98.88 kg; Height 5 ft. 4 in. (162.56 cm); Pain 0/10; 14:50 BP 74 / 46; ch 15:14 BP 84 / 44; Pulse 67; Resp 16; Pulse Ox 98% on R/A; aj1 15:25 BP 82 / 41; Pulse 64; Resp 14; Pulse Ox 97% on 2 lpm NC; aj1 15:49 BP 107 / 54; Pulse 67; Resp 16; Pulse Ox 100% on 2 lpm NC; aj1 16:50 BP 101 / 58; Pulse 66; Resp 16; Pulse Ox 99% ; sv 17:25 BP 106 / 72; Pulse 85; Resp 18; Pulse Ox 98% on R/A; aj1 18:27 BP 133 / 70; Pulse 79; Resp 18; Pulse Ox 95% on R/A; aj1 19:00 BP 126 / 64; Pulse 78; Resp 18; Pulse Ox 93% on R/A; aj1 19:30 BP 111 / 63; Pulse 77; Resp 18; Pulse Ox 94% on R/A; aj1 20:00 BP 102 / 75; Pulse 76; Resp 18; Pulse Ox 95% on R/A; aj1 20:30 BP 116 / 66; Pulse 75; Resp 18; Pulse Ox 93% on R/A; aj1 21:00 BP 107 / 65; Pulse 78; Resp 18; Temp 98.3(O); Pulse Ox 95% on R/A; aj1 14:48 Body Mass Index 37.42 (98.88 kg, 162.56 cm) ED Course: 14:20 Patient arrived in ED. as 14:47 Triage completed. ch 14:50 Arm band placed on left wrist. Patient placed in an exam room, on a stretcher. 14:52 Sury Gilliland, EMRE is Primary Nurse. aj1 14:54 Valerio Hussein MD is Attending Physician. champ 15:19 Patient has correct armband on for positive identification. Placed in gown. Bed in low aj1 position. Call light in reach. fitter type bar and segment on. Pulse ox on. NIBP on. 15:19 No provider procedures requiring assistance completed. aj1 16:06 EKG done, by ED staff, reviewed by Valerio Hussein MD. ms 16:36 Chest Single View XRAY In Process Unspecified. EDMS 17:02 CT Chest Abdomen Pelvis W/O Contrast: no iv no oral In Process Unspecified. EDMS 17:04 CT completed. Patient tolerated procedure well. Patient moved back from CT. 19:01 Parminder Covarrubias MD is Hospitalizing Provider. champ 21:23 IV discontinued, intact, bleeding controlled, No redness/swelling at site. Pressure aj1 dressing applied. Administered Medications: 15:40 Drug: NS 0.9% (30 ml/kg) 30 ml/kg Route: IV; Rate: bolus; Site: right antecubital; aj1 21:00 Follow up: IV Status: Completed infusion; IV Intake: 3000ml aj1 17:20 Drug: Azactam 2 grams Route: IVPB; Infused Over: 30 mins; Site: right antecubital; aj1 18:26 Follow up: IV Status: Completed infusion; IV Intake: 100ml aj1 18:26 Drug: vancoMYCIN 1 grams Route: IVPB; Infused Over: 2 hrs; Site: right antecubital; aj1 21:00 Follow up: IV Status: Completed infusion; IV Intake: 250ml aj1 Intake: 18:26 IV: 100ml; Total: 100ml. aj1 21:00 IV: 250ml; Total: 350ml. aj1 21:00 IV: 3000ml; Total: 3350ml. aj1 Outcome: 19:03 Decision to Hospitalize by Provider. champ 21:24 Discharged to home via wheelchair, with family. aj1 21:24 Condition: stable 21:24 Discharge instructions given to patient, family, Instructed on discharge instructions, follow up and referral plans. medication usage, Demonstrated understanding of instructions, follow-up care, medications, Prescriptions given X 1. 21:45 Patient left the ED. aj1 Signatures: Dispatcher [employer] EDVandana Mike, Sury Matthews RN, ch, RN RN aj1 Nicole Glover RN RN sv Anderson, Corey, MD MD cha Quilty, Betty bq Martinez, Amelia as Solis, Maria ms Knox, Taylor, RN RN tl2 Corrections: (The following items were deleted from the chart) 14:50 14:46 Acuity: MANISHA 3 [facility] 15:25 15:19 EENT: No signs and/or symptoms were reported regarding the EENT system. aj1 aj1 17:25 17:24 Reassessment: Patient appears in no apparent distress at this time. No changes aj1 from previously documented assessment. Patient and/or family updated on plan of care and expected duration. Pain level reassessed. Patient is alert, oriented x 3, equal unlabored respirations, skin warm/dry/pink. aj1
--- NOTE | 2018-10-26 19:04 | EDPHYS ---
Physician Documentation [facility] Name: Jose G Perera Age: 37 yrs Sex: Male : 1980 Arrival Date: 10/26/2018 Time: 14:20 Bed 6 Private MD: ED Physician Valerio Hussein HPI: 10/26 15:54 This 37 yrs old Male presents to ER via Wheelchair with complaints of Cough, champ Fever, InQuicker. 15:54 The patient or guardian reports airway noise, cough. Onset: The symptoms/episode champ began/occurred 2 day(s) ago. Severity of symptoms: At their worst the symptoms were mild, in the emergency department the symptoms are unchanged. Modifying factors: The symptoms are alleviated by nothing, the symptoms are aggravated by nothing. Associated signs and symptoms: The patient has no apparent associated signs or symptoms. The patient has experienced similar episodes in the past, a few times. Historical: - Allergies: 14:48 BACLOFEN; ch 14:48 CEPHALOSPORINS; ch 14:48 Demerol; ch 14:48 Dilaudid; ch 14:48 Levaquin; ch 14:48 Morphine; ch 14:48 Phenergan; ch - PMHx: 14:48 Anxiety; Diverticulitis; Gout; Hyperlipidemia; neuropathy; Pancreatitis; mutiple ch myeloma; amyldosis; 14:50 bradycardia, hypotension, hypertension; seizure due to hypoxia; ch - PSHx: 14:48 Bowel resection; Hernia repair; Appendectomy; Hypospadius repair; Exploratory lap; ch - Immunization history:: Adult Immunizations up to date, Flu vaccine is up to date. - Social history:: Smoking status: Patient/guardian denies using tobacco, Patient/guardian denies using alcohol, street drugs. - Ebola Screening: : Patient negative for fever greater than or equal to 101.5 degrees Fahrenheit, and additional compatible Ebola Virus Disease symptoms Patient denies exposure to infectious person Patient denies travel to an Ebola-affected area in the 21 days before illness onset No symptoms or risks identified at this time. ROS: 18:08 Eyes: Negative for injury, pain, redness, and discharge, Neck: Negative for injury, champ pain, and swelling, Cardiovascular: Negative for chest pain, palpitations, and edema, Abdomen/GI: Negative for abdominal pain, nausea, vomiting, diarrhea, and constipation, Back: Negative for injury and pain, : Negative for injury, bleeding, discharge, and swelling, MS/Extremity: Negative for injury and deformity, Skin: Negative for injury, rash, and discoloration, Psych: Negative for depression, anxiety, suicide ideation, homicidal ideation, and hallucinations, Allergy/Immunology: Negative for hives, rash, and allergies, Endocrine: Negative for neck swelling, polydipsia, polyuria, polyphagia, and marked weight changes, Hematologic/Lymphatic: Negative for swollen nodes, abnormal bleeding, and unusual bruising. 18:08 Constitutional: Positive for fever. 18:08 ENT: Positive for sinus congestion, sore throat. 18:08 Respiratory: Positive for cough, with green sputum. 18:08 Neuro: Positive for weakness. Exam: 15:55 Constitutional: This is a well developed, well nourished patient who is awake, alert, champ and in no acute distress. Head/Face: Normocephalic, atraumatic. Eyes: Pupils equal round and reactive to light, extra-ocular motions intact. Lids and lashes normal. Conjunctiva and sclera are non-icteric and not injected. Cornea within normal limits. Periorbital areas with no swelling, redness, or edema. ENT: Nares patent. No nasal discharge, no septal abnormalities noted. Tympanic membranes are normal and external auditory canals are clear. Oropharynx with no redness, swelling, or masses, exudates, or evidence of obstruction, uvula midline. Mucous membranes moist. Neck: Trachea midline, no thyromegaly or masses palpated, and no cervical lymphadenopathy. Supple, full range of motion without nuchal rigidity, or vertebral point tenderness. No Meningismus. Chest/axilla: Normal chest wall appearance and motion. Nontender with no deformity. No lesions are appreciated. Cardiovascular: Regular rate and rhythm with a normal S1 and S2. No gallops, murmurs, or rubs. Normal PMI, no JVD. No pulse deficits. Abdomen/GI: Soft, non-tender, with normal bowel sounds. No distension or tympany. No guarding or rebound. No evidence of tenderness throughout. Back: No spinal tenderness. No costovertebral tenderness. Full range of motion. Male : Normal genitalia with no discharge or lesions. Skin: Warm, dry with normal turgor. Normal color with no rashes, no lesions, and no evidence of cellulitis. MS/ Extremity: Pulses equal, no cyanosis. Neurovascular intact. Full, normal range of motion. Neuro: Awake and alert, GCS 15, oriented to person, place, time, and situation. Cranial nerves II-XII grossly intact. Motor strength 5/5 in all extremities. Sensory grossly intact. Cerebellar exam normal. Normal gait. Psych: Awake, alert, with orientation to person, place and time. Behavior, mood, and affect are within normal limits. 15:55 Respiratory: the patient does not display signs of respiratory distress, Respirations: normal, Breath sounds: decreased breath sounds, that are mild, rhonchi, that are mild, are scattered, Respiratory rate: 16 Vital Signs: 14:48 Pulse 72; Resp 18; Temp 99.2; Pulse Ox 94% on R/A; Weight 98.88 kg; Height 5 ft. 4 in. ch (162.56 cm); Pain 0/10; 14:50 BP 74 / 46; ch 15:14 BP 84 / 44; Pulse 67; Resp 16; Pulse Ox 98% on R/A; aj1 15:25 BP 82 / 41; Pulse 64; Resp 14; Pulse Ox 97% on 2 lpm NC; aj1 15:49 BP 107 / 54; Pulse 67; Resp 16; Pulse Ox 100% on 2 lpm NC; aj1 16:50 BP 101 / 58; Pulse 66; Resp 16; Pulse Ox 99% ; sv 17:25 BP 106 / 72; Pulse 85; Resp 18; Pulse Ox 98% on R/A; aj1 18:27 BP 133 / 70; Pulse 79; Resp 18; Pulse Ox 95% on R/A; aj1 19:00 BP 126 / 64; Pulse 78; Resp 18; Pulse Ox 93% on R/A; aj1 19:30 BP 111 / 63; Pulse 77; Resp 18; Pulse Ox 94% on R/A; aj1 20:00 BP 102 / 75; Pulse 76; Resp 18; Pulse Ox 95% on R/A; aj1 20:30 BP 116 / 66; Pulse 75; Resp 18; Pulse Ox 93% on R/A; aj1 21:00 BP 107 / 65; Pulse 78; Resp 18; Temp 98.3(O); Pulse Ox 95% on R/A; aj1 14:48 Body Mass Index 37.42 (98.88 kg, 162.56 cm) ch MDM: 14:54 Patient medically screened. [facility] 15:58 Data reviewed: vital signs, nurses notes, lab test result(s), EKG, radiologic studies, champ plain films. 10/26 15:27 Order name: Basic Metabolic Panel; Complete Time: 16:41 [facility] 10/26 15:27 Order name: Blood Culture Adult (2) [facility] 10/26 15:27 Order name: CBC with Diff; Complete Time: 16:41 10/26 15:27 Order name: Ckmb; Complete Time: 16:41 10/26 15:27 Order name: CPK; Complete Time: 16:41 10/26 15:27 Order name: Lactate; Complete Time: 16:41 10/26 15:27 Order name: LFT's; Complete Time: 16:41 10/26 15:27 Order name: Lipase; Complete Time: 16:41 [facility] 10/26 15:27 Order name: Procalcitonin; Complete Time: 16:41 10/26 15:27 Order name: Protime (+inr); Complete Time: 16:41 10/26 15:27 Order name: Ptt, Activated; Complete Time: 16:41 10/26 15:27 Order name: Troponin (emerg Dept Use Only); Complete Time: 16:41 10/26 15:53 Order name: Flu; Complete Time: 17:26 [facility] 10/26 15:27 Order name: Chest Single View XRAY; Complete Time: 17:26 10/26 15:27 Order name: Cardiac monitoring; Complete Time: 15:40 10/26 15:27 Order name: EKG - Nurse/Tech; Complete Time: 16:06 10/26 15:27 Order name: IV Saline Lock - Large Bore; Complete Time: 15:40 10/26 15:27 Order name: Labs collected and sent; Complete Time: 15:41 10/26 15:27 Order name: O2 Per Protocol; Complete Time: 15:41 10/26 15:27 Order name: O2 Sat Monitoring; Complete Time: 15:41 10/26 15:53 Order name: IV Saline Lock - Large Bore; Complete Time: 15:55 [facility] 10/26 16:42 Order name: CT Chest Abdomen Pelvis W/O Contrast: no iv no oral; Complete Time: 17:26 [facility] 10/26 17:38 Order name: Strep [facility] 10/26 17:49 Order name: Urine Culture [facility] 10/26 18:10 Order name: Urine Dipstick--Ancillary (enter results) 10/26 18:25 Order name: Throat Culture EDMS Administered Medications: 15:40 Drug: NS 0.9% (30 ml/kg) 30 ml/kg Route: IV; Rate: bolus; Site: right antecubital; [facility] 21:00 Follow up: IV Status: Completed infusion; IV Intake: 3000ml [facility] 17:20 Drug: Azactam 2 grams Route: IVPB; Infused Over: 30 mins; Site: right antecubital; [facility] 18:26 Follow up: IV Status: Completed infusion; IV Intake: 100ml [facility] 18:26 Drug: vancoMYCIN 1 grams Route: IVPB; Infused Over: 2 hrs; Site: right antecubital; [facility] 21:00 Follow up: IV Status: Completed infusion; IV Intake: 250ml [facility] Disposition: 10/26/18 19:03 Hospitalization ordered by Parminder Covarrubias for Observation. Preliminary diagnosis are Fever, unspecified, Bronchitis, not specified as acute or chronic, Hypotension, Volume depletion, Weakness, Unspecified kidney failure. - Bed requested for Telemetry/MedSurg (observation). - Status is Observation. aj1 - Condition is Fair. - Problem is new. - Symptoms have improved. UTI on Admission? No Signatures: Dispatcher [employer] EDMS Vandana Rodriguez RN RN ch Johnson, Angela, RN RN aj1 Valerio Hussein MD MD [facility] Corrections: (The following items were deleted from the chart) 18:10 15:55 Eyes: Negative for injury, pain, redness, and discharge, ENT: Negative for [facility] injury, pain, and discharge, Neck: Negative for injury, pain, and swelling, Cardiovascular: Negative for chest pain, palpitations, and edema, Abdomen/GI: Negative for abdominal pain, nausea, vomiting, diarrhea, and constipation, Back: Negative for injury and pain, : Negative for injury, bleeding, discharge, and swelling, MS/Extremity: Negative for injury and deformity, Skin: Negative for injury, rash, and discoloration, Psych: Negative for depression, anxiety, suicide ideation, homicidal ideation, and hallucinations, Allergy/Immunology: Negative for hives, rash, and allergies, Endocrine: Negative for neck swelling, polydipsia, polyuria, polyphagia, and marked weight changes, Hematologic/Lymphatic: Negative for swollen nodes, abnormal bleeding, and unusual bruising, [facility] 18:10 15:55 Constitutional: Positive for body aches, fatigue, fever, poor PO intake, [facility] 18:10 15:55 Respiratory: Positive for cough, shortness of breath, [facility] 18:10 15:55 Neuro: Positive for weakness, [facility] 21:45 19:03 Hospitalization Ordered by Parminder Covarrubias MD for Observation. Preliminary diagnosis aj1 is Fever, unspecified; Bronchitis, not specified as acute or chronic; Hypotension; Volume depletion; Weakness; Unspecified kidney failure. Bed requested for Telemetry/MedSurg (observation). Status is Observation. Condition is Fair. Problem is new. Symptoms have improved. UTI on Admission? No. [facility]
[2018-10-26 19:18] LABS: Urine Blood NEGATIVE (NEG); Urine Glucose NEGATIVE (NEG); Urine Protein 2+ (NEG); Urine pH 5.5 (5.0-7.0)
[2018-10-26 22:45] VITALS: BP 107/65; TEMP 98.3; O2SAT 95
--- NOTE | 2018-10-27 21:46 | EKG ---
Test Date: 2018-10-26 Test Time: 16:03:07 Statistical Geneticist: MEASUREMENT RESULTS: Intervals: Rate: 69 MS: 162 QRSD: 100 QT: 396 QTc: 424 [place]: P: 61 MS: 162 QRS: 47 T: 46 INTERPRETIVE STATEMENTS: Normal sinus rhythm Normal ECG Compared to ECG 08/25/2018 15:00:59 No significant changes Electronically Signed On 10-27-18 21:45:37 CDT by Marcus Leavitt
== END 2018-10-26 21:26 | disposition home or self-care (01) ==
LOC: ER 14:19
DX: J40 Bronchitis, not specified as acute or chronic (principal); E86.9 Volume depletion, unspecified; I95.9 Hypotension, unspecified; R53.1 Weakness; N19 Unspecified kidney failure; I12.9 Hypertensive chronic kidney disease with stage 1 through stage 4 chronic kidney disease, or unspecified chronic kidney disease; N18.9 Chronic kidney disease, unspecified; Z88.1 Allergy status to other antibiotic agents; Z88.5 Allergy status to narcotic agent; Z88.8 Allergy status to other drugs, medicaments and biological substances
CPT/HCPCS: 36415; 71045; 71250; 74176; 80048; 80076; 81003; 82550; 82553; 83605; 83690; 84145; 84484; 85025; 85610; 85730; 87040; 87070; 87081; 87086; 87088; 87804; 93005; 96365; 96366; 96367; 99285; J3370; J7030

== ENCOUNTER 2019-02-21 21:04 | Emergency (ER) | payer BC, OTHER ==
--- OUTSIDE RECORDS SUMMARY | 2019-02-21 21:08 | XMS REPORT ---
[...] Medications Results No Known Results Summary Purpose [employer] Submission
--- OUTSIDE RECORDS SUMMARY | 2019-02-21 21:08 | XMS REPORT ---
[...] Status Dosage System Date Date Lexapro ND 38293759255 20 MG Orally Active 0.5 tablet Once a day Amlodipine ND 26303998068 10 MG Orally Active 1 tablet Besylate Once a day Melatonin ND 86357985880 10 MG Orally Active as directed Lamictal ND 36358517685 100 MG Orally Active 1 tablet once a day Voltaren ND 23113209242 1 % topically Active not defined Four times a day Magnesium ND 35516706692 500 MG Orally Active 1/2 tablet Gluconate daily Celexa [facility] 99957584174 40 MG Orally Active 0.5 tablet Once a day Fish Oil [facility] 25080375472 1000 MG Orally Active 1 capsule Once a day CoQ10 [facility] 23914055584 200 MG Orally Active 1 capsule Once a day with a meal Loratadine [facility] 74527383101 10 MG Orally Active 1 tablet PRN Ambien [facility] 43999873508 10 MG Orally Active 1 tablet at Once a day bedtime as needed HANDICAP ND 0 January 01, Active as directed CARLOS2017 Simvastatin [facility] 31932624674 40 MG Orally Active 1 tablet in Once a day the evening Crestor [facility] 43991130404 20 MG Active TAKE 1 TABLET BY MOUTH AT BEDTIME Lyrica [facility] 20045343165 300 MG Orally Active 1 capsule Twice a day Results No Known Results Summary Purpose eClinicalWorks Submission
--- OUTSIDE RECORDS SUMMARY | 2019-02-21 21:08 | XMS REPORT | Clinical Summary ---
:1980 Author Organization [facility] Address [address] [place] [address] Care Team Providers Name Role Phone Anitra Estrada [employer] LITIGATION SERVICES MANAGER-C Primary Care Provider Allergies Active Allergy [...] acid-epa (FISH OIL) mouth. 120-180 mg capsule febuxostat (ULORIC) Take 1 tablet 90 tablet 0 11/26/2018 Active 40 mg (40 mg total) tabletIndications: by mouth Polyarticular gout daily. dexamethasone 0 11/10/2018 Active (DECADRON) 4 MG tablet valACYclovir 0 11/08/2018 Active (VALTREX) 500 MG tablet midodrine 0 11/06/2018 Active (PROAMATINE) 5 MG tablet diphenoxylate-atropin Take 1 tablet 0 Active e (LOMOTIL) 2.5-0.025 by mouth. mg per tablet pantoprazole 0 11/08/2018 Active (PROTONIX) 40 MG EC tablet rosuvastatin Take 20 mg by 0 Discontinued (CRESTOR) 20 MG mouth daily. 8 tablet amLODIPine (NORVASC) Take 10 mg by 0 Discontinued 10 mg tablet mouth daily. 8 DOMPERIDONE, BULK, 1 tablet 3 0 Discontinued MISC (three) times 8 a day. febuxostat (ULORIC) Take 1 tablet 30 tablet 11 09/03/2017 40 mg (40 mg total) 9 tabletIndications: by mouth Polyarticular gout, daily. Other secondary osteoarthritis of both feet, Renal insufficiency, Hyperuricemia ULORIC 40 mg tablet TAKE 1 TABLET 30 tablet 11 09/09/2018 Discontinued BY MOUTH 9 EVERY DAY Active Problems Problem Noted Date Exotropia, alternating 08/02/2018 Diplopia 08/02/2018 Fluctuating blood pressure 04/26/2018 Abdominal pain, generalized 12/29/2016 Generalized abdominal pain 12/26/2016 Overview: Added automatically from request for surgery [id number] Polyarticular gout 06/29/2016 Hyperuricemia 06/29/2016 Renal insufficiency [...] Encounters Date Type Specialty Care Team Description 12/09/2018 Office Visit Ophthalmology Ras Marr MD Exophthalmos ( Primary Dx); Exotropia; Multiple myeloma, remission status unspecified (HCC); Diplopia 11/26/2018 Refill Rheumatology Lacey Salazar MA Polyarticular gout (Primary Dx) 10/15/2018 Telephone Ophthalmology [place], Ophthalmology - Clinical Care 09/27/2018 Telephone Ophthalmology Jose Manuel Evans MD 09/10/2018 Telephone Ophthalmology [place], Ophthalmology - Clinical Care 09/09/2018 Telephone Ophthalmology Ras Marr MD 09/08/2018 Refill Rheumatology Elba Parekh MD 08/02/2018 Anesthesia Event Plastic Surgery Messi Mchugh, STATISTICS INTERN 08/02/2018 Surgery Plastic Surgery Isaac Friedman BILATERAL MEDIAL MD Lázaro RECTUS RESECTION, BIOPSY OF EXTRAOCULAR MUSCLE-BOTH EYES, SCARRING FROM PREVIOUS EXTRAOCULAR MUSCLE SURGERY 08/02/2018 [facility] Plastic Surgery Isaac Friedman Alternating Encounter MD Lázaro exotropia 06/05/2018 Office Visit Gastroenterology Josette Larios DO Gastroparesis (Primary Dx); Incontinence of feces, unspecified fecal incontinence type 05/16/2018 Hospital Radiology Ras Marr MD Anisocoria Encounter 05/16/2018 [facility] Radiology Ras Marr MD Exophthalmos Encounter 05/15/2018 Orders Only Ophthalmology Ras Marr MD Multiple myeloma, remission status unspecified (Primary Dx) 05/15/2018 Orders Only Ophthalmology Ras Marr MD Anisocoria (Primary Dx) 05/15/2018 Telephone Ophthalmology Ras Marr MD 05/07/2018 Office Visit Endocrinology Perri Mckenna MD Blood pressure instability (Primary Dx) 05/07/2018 Lab Lab Ras [...] of both feet; Hyperuricemia; Fluctuating blood pressure after 02/20/2018 Social History Tobacco Use Types Packs/Day Years [...] Taken Blood Pressure 147/67 08/02/2018 10:25 AM [employer]ODLE CATALYST MAKER Pulse 84 08/02/2018 10:25 AM [employer]ODLE [employer] MAK[employer] Temperature 36.1 C (97 F) 08/02/2018 10:25 AM [employer] MAKER Respiratory Rate 12 08/02/2018 10:25 AM [employer]OD[employer] CAT[employer] MAKER Oxygen Saturation 97% 08/02/2018 10:25 AM [employer] Inhaled Oxygen Concentration - - Weight 95.7 kg (211 lb) 12/09/2018 1:38 PM CDT Height 162.6 cm (5' 4") 12/09/2018 1:38 PM CDT Body Mass Index 36.22 12/09/2018 1:38 PM CDT Plan of Treatment Date Type Specialty Care Team Description 05/07/2019 Office Visit Ophthalmology TejinderRas MD [address] [place] [address] [phone] Health Maintenance Due Date Last Done Comments INFLUENZA VACCINE 03/20/2019 Procedures Procedure Name Priority Date/Time Associated Comments Diagnosis SURGICAL PATHOLOGY Routine 08/02/2018 9:00 Results for this REQUEST AM [employer] procedure are in the results section. SURGICAL PATHOLOGY Routine 08/02/2018 9:00 Results for this REQUEST AM [employer] procedure are in the results section. AK AN ELECTIVE Routine 08/02/2018 7:50 ENDOTRACHEAL AIRWAY AM [employer] Procedure Note - Noris Nixon - 08/02/2018 7:50 AM [employer] ANESTHESIA INTUBATION Performed by: Noris Nixon CRNA Authorized by: Rola Hall MD Location: OR Urgency: Elective Difficult Airway: No Resident/RELATIONS SPECIALIST/AA: Noris Nixon CRNA Performed by: resident/RELATIONS SPECIALIST/AA Preoxygenated with 100% O2: Yes C-spine Precautions [...] teeth intact STRABISMUS SURGERY 08/02/2018 7:30 Alternating AM [employer] exotropia POC PANEL 4 Routine 08/02/2018 6:48 Results for this AM [employer] CAT[employer] procedure are in the results section. CT ORBITS W WO CONTRAST Routine 05/16/2018 3:11 Anisocoria Results for this PM CDT procedure are [...] unspecified section. OCT, OPTIC NERVE - OU - Routine 05/07/2018 9:37 Exophthalmos BOTH EYES AM CDT Multiple myeloma, remission status unspecified Partial optic atrophy of both eyes Exotropia AUTOMATED VISUAL FIELD, Routine 05/07/2018 9:37 Exophthalmos Results for this EXTENDED - OU - BOTH AM CDT Multiple myeloma, procedure are in EYES remission status the results unspecified section. Partial optic atrophy of both eyes Exotropia after 02/20/2018 Results Surgical pathology request (08/02/2018 9:00 AM [employer]ODLE CATALY[employer] MAK[employer])Only the most recent of2 resultswithin the time period is included. [facility] DEPARTMENT OF PATHOLOGY AND GENOMIC MEDICINE Surgical pathology See link below for [facility] DEPARTMENT OF report PDF Lab Report PATHOLOGY AND GENOMIC MEDICINE Result status This is Supplemental [facility] DEPARTMENT OF Report for PATHOLOGY AND [id number] GENOMIC MEDICINE Specimen Performing Organization Address City/[facility]/Zipcode Phone Number [facility] DEPARTMENT OF PATHOLOGY AND [address] [place] [address] GENOMIC MEDICINE POC panel 4 (08/02/2018 6:48 AM NOODLE CATALYST MAKER) POC sodium 131 (L) 135 - 148 [facility] mmol/L [facility] POC potassium 4.7 3.5 - 5.0 [facility] mmol/L [facility] POC hematocrit 37 (L) 41 - 51 % [facility] Comment: HOSPITAL Meter ID: [id number] [employer] Engraver: Yovani Valenzuela POC glucose 101 (H) 65 - 99 mg/dL [facility] Specimen Performing Organization Address City/[facility] Phone Number [facility] DEPARTMENT OF PATHOLOGY AND [address] [place] [address] [address] [address] Orbits W Wo Contrast (05/16/2018 3:11 PM CDT) Specimen Narrative Performed At EXAMINATION: CT ORBITS W [...] the orbits. Stable bilateral exophthalmus. Mild sinusitis. [id number] Procedure Note Interface, Radiology Results Incoming - [...] the orbits. Stable bilateral exophthalmus. Mild sinusitis. [id number] Performing Organization Address [facility] Phone Number [facility] [address] [place] [address] Estimated GFR (05/16/2018 1:53 PM CDT) Estimated GFR 63 mL/min/1.73 [facility] DEPARTMENT OF Comment: m2 PATHOLOGY AND CatergoryUnitsInterpretation GENOMIC MEDICINE G1 >=90 Normal or high G2 60-89Mildly decreased [id number] to moderately decreased [id number] to severely decreased G4 15-29Severely decreased G5 <15Kidney failure The eGFR was calculated using the Chronic Kidney Disease Epidemiology Collaboration (CKD-EPI) equation. Interpretation is based on recommendations of the National Kidney Foundation-Kidney Disease Outcomes Quality Initiative (NKF-KDOQI) published in 2014. Specimen Blood Performing Organization Address City/[facility]/Zipcode Phone Number [facility] DEPARTMENT OF PATHOLOGY AND [address] [facility] [place] [address] [facility] POC creatinine (05/16/2018 1:53 PM CDT) [facility] POC creatinine 1.4 (H) 0.7 - 1.2 [facility] DEPARTMENT OF Comment: mg/dl PATHOLOGY AND Meter ID: [id number] [employer] MEDICINE [employer] [place] Engraver: Audra Lara Specimen Blood Performing Organization Address City/[facility] Phone Number [facility] DEPARTMENT OF PATHOLOGY AND [address] [place] [phone] [facility] Renin activity (05/07/2018 2:50 PM CDT) [facility] Renin activity 1.13 0.25 - 5.82 [facility] Comment: ng/mL/h [employer]/[facility] This test was developed and its analytical performance characteristics have been determined by [facility] [employer]) [facility]. It has not been cleared or approved by FDA. This assay has been validated pursuant to the CLIA regulations and is used for clinical purposes. Specimen Blood Narrative Performed At FASTING:NO [facility] FASTING: NO Resulting Agency Comment Performing Organization Information: Site ID: [id number] Name: [facility], Address: [address] [place] [phone] Director: Narcisa Victor MD,PhD,IONA Performing Organization Address [facility] Cent[facility] Phone Number [facility] [employer]/[address] [address] [facility] Catecholamines fractionated, plasma (05/07/2018 2:50 PM CDT) [facility] Epinephrine <20 pg/mL [facility] Comment: [facility] This test was developed and its analytical performance characteristics have been determined by [facility] [employer]. It has not been cleared or approved by FDA. This assay has been validated pursuant to the CLIA regulations and is used for clinical purposes. Norepinephrine 214 (L) pg/mL [facility] Comment: [employer]/[facility] This test was developed and its analytical performance characteristics have been determined by [facility] [employer]. It has not been cleared or approved by FDA. This assay has been validated pursuant to the CLIA regulations and is used for clinical purposes. Dopamine <20 pg/mL [facility] Comment: [employer]/[facility] This test was developed and its analytical performance characteristics have been determined by [facility] [employer]. It has not been cleared or approved by FDA. This assay has been validated pursuant to the CLIA regulations and is used for clinical purposes. Catecholamines, total 252 pg/mL [facility] Comment: [facility] Adult Reference Ranges for Catecholamines, Plasma Epinephrine Supine:<50 pg/mL Upright: <95 pg/mL NorepinephrineSupine:112-658 pg/mL Upright: 217-1109 pg/mL DopamineSupine:<10 pg/mL Upright: <20 pg/mL Total (N+E+D) Supine:123-671 pg/mL Upright: 242-1125 pg/mL Pediatric Reference Ranges for Catecholamines, Plasma Due to stress, plasma catecholamine levels are generally unreliable in infants and small children. Urinary catecholamine assays are more reliable. Epinephrine 3-15 Years Supine:< xy=395 pg/mL Upright: No Reference Range Available Norepinephrine 3-15 Years Supine:< mn=4488 pg/mL Upright: No Reference Range Available Dopamine 3-15 Years Supine:<60 pg/mL Upright: No Reference Range Available Pediatric data from J Chromatogr (1993) 617:304-307. This test was developed and its analytical performance characteristics have been determined by [facility] [employer]. It has not been cleared or approved by FDA. This assay has been validated pursuant to the CLIA regulations and is used for clinical purposes. Specimen Blood Narrative Performed At FASTING:NO [facility] FASTING: NO Resulting Agency Comment Performing Organization Information: Site ID: [id number] Name: [facility] [employer])/[facility], Address: [address] [place] [phone] Director: Narcisa Victor MD,PhD,IONA Performing Organization Address City/State/Zipcode Phone Number ONI[facility] [employer]/TAN [address] [place] [address] [facility] Aldosterone, serum (05/07/2018 2:50 PM CDT) Aldosterone 6 ng/dL [facility] Comment: [facility] Adult Reference Ranges for Aldosterone, LC/MS/MS: Upright 8:00-10:00 am< or=28 ng/dL Upright 4:00-6:00 pm < or=21 ng/dL Supine8:00-10:00 am3-16 ng/dL This test was developed and its analytical performance characteristics have been determined by [facility] [employer]) [facility]. It has not been cleared or approved by FDA. This assay has been validated pursuant to the CLIA regulations and is used for clinical purposes. Specimen Blood Narrative Performed At FASTING:NO [facility] FASTING: NO Resulting Agency Comment Performing Organization Information: Site ID: [id number] Name: [facility] [employer])/[facility], Address: [address] [place] [phone] Director: Narcisa Victor MD,PhD,IONA Performing Organization Address City/[facility]/Zipcode Phone Number [email or web address] [address] [phone] [facility] Hemoglobin A1c (05/07/2018 2:50 PM CDT) Hemoglobin A1C 5.8 (H) <5.7 % of [employer] Comment: total Hgb [place] For someone without known diabetes, a hemoglobin [...] Performing Organization Information: Site ID: [id number] Name: [facility] [employer])[facility] Address: [address] [place] [id number] Director: Maeve Barbour Performing Organization Address City/State/Zipcode Phone Number [email or web address] [address] [address] Immunoglobulin G subclass 4 (05/07/2018 10:57 AM CDT) Immunoglobulin G subclass 15.0 4 - 86 mg/dL [facility]/TAN [facility] Specimen Blood Resulting Agency Comment Performing Organization Information: Site ID: [id number] Name: [facility]/Tan [facility]-[place], Address: [address] [place] [phone] Director: Narcisa Victor MD,PhD,IONA Performing Organization Address City/State/Zipcode Phone Number [facility]TAN [address] [place] [address] [phone] [facility] OCT, Optic Nerve - OU (05/07/2018 9:37 AM CDT) Specimen Narrative Performed At Automated Visual Field, Extended - OU (05/07/2018 9:37 AM CDT) Specimen Narrative Performed At Right Eye Threshold was 24-2. Strategy was RISA. Left Eye Threshold was 24-2. Strategy was RISA. after 02/20/2018 Insurance Payer Benefit Plan / Subscriber ID Effective Dates Phone Address Type Group BCBS ANTHEM BLUE CROSS xxxxxxxxxxxx 2016-Present PPO MEDICARE MEDICARE PART A xxxxxxxxxxx 2017-Present [place], [place] Medicare AND B MEDICAID MEDICAID xxxxxxxxx 2018-Present Medicaid Advance Directives Patient has advance care planning documents on file. For more information, please contact:[place] [address]
--- OUTSIDE RECORDS SUMMARY | 2019-02-21 21:09 | XMS REPORT ---
[...] Status Dosage System Date Date Lamictal ND 17919910826 100 MG Orally Active 1 tablet once a day Celexa ND 40047833480 40 MG Orally Active 1 tablet Once a day Melatonin ND 60528563896 10 MG Orally Active as directed Loratadine ND 90131963225 10 MG Orally Active 1 tablet PRN Xyzal NDC 0 5 mg orally Active 1 tab daily CoQ10 ND 60854528808 200 MG Orally Active 1 capsule Once a day with a meal ZyrTEC [facility] 76321925543 10 MG Orally Active 1 tablet Once a day Fish Oil ND 47013249327 1000 MG Orally Active 1 capsule Once a day Voltaren ND 12171462508 1 % topically Active not defined Four times a day Amlodipine ND 76635431116 10 MG Orally Active 1 tablet Besylate Once a day Benzonatate ND 29512661581 200 MG Orally Sep 04, Active 1 capsule Three times a 2019 day Simvastatin ND 61425766809 40 MG Orally Active 1 tablet in Once a day the evening Magnesium ND 28417067737 500 MG Orally Active 1/2 tablet Gluconate daily Ambien ND 72088266591 10 MG Orally Active 1 tablet at Once a day bedtime as needed Azithromycin ND 44036673431 250 MG Orally Sep 04, Active 2 tablets Once a day 2018 on the first day, then 1 tablet daily for 4 days HANDICAP PLACARD ND 0 January 01, Active as directed 2017 Lyrica ND 50222185610 300 MG Orally Active 1 capsule Twice a day Vitamin D ND 23520509210 1000 UNIT Active 3 capsule Orally Once a day Crestor ND 20118961383 40 MG Orally Active 1 tablet Once a day Results No Known Results Summary Purpose eClinicalWorks Submission
--- OUTSIDE RECORDS SUMMARY | 2019-02-21 21:09 | XMS REPORT ---
[...] NDC 0 Active not defined Azithromycin ND 20749918569 250 MG Orally Sep 04, Active 2 tablets Once a day 2018 on the first day, then 1 tablet daily for 4 days Amlodipine ND 62314851896 10 MG Orally Active 1 tablet Besylate Once a day Fish Oil ND 59922176132 1000 MG Orally Active 1 capsule Once a day Lyrica ND 28047453960 300 MG Orally Active 1 capsule Twice a day Crestor [facility] [address]-64 Active not defined Melatonin [facility] 95608321866 10 MG Orally Active as directed Loratadine [facility] 87082567343 10 MG Orally Active 1 tablet PRN Simvastatin [facility] 64814168442 40 MG Orally Active 1 tablet Once a day in the evening ZyrTEC [facility] 19000571274 10 MG Orally Active 1 tablet Once a day CoQ10 [facility] 63434670061 200 MG Orally Active 1 capsule Once a day with a meal Lamictal [facility] 97354954613 100 MG Orally Active 1 tablet once a day Vitamin D [facility] [address]-41 Active not defined Benzonatate [facility] 89980197340 200 MG Orally Sep 04, Active 1 capsule Three times a 2018 day Ambien [facility] 66032224012 10 MG Orally Active 1 tablet Once a day at bedtime as needed Celexa [facility] 61536238527 40 MG Orally Active 1 tablet Once a day HANDICAP ND 0 January 01, Active as PLACARD 2018 directed Voltaren [facility] 44106407439 1 % topically Active not Four times a defined day Magnesium [facility] 00264052877 500 MG Orally Active 1/2 tablet Gluconate daily Results Name Result Date Reference Range Unit Abnormality Flag EAR IRRIGATION BY LAVAGE Summary Purpose eClinicalWorks Submission
--- OUTSIDE RECORDS SUMMARY | 2019-02-21 21:09 | XMS REPORT ---
[...] January 01, Active as directed 2017 Ambien [facility] 45002048792 10 MG Orally Active 1 tablet at Once a day bedtime as needed Lyrica [facility] 81095995387 300 MG Orally Active 1 capsule Twice a day Melatonin [facility] 16978198084 10 MG Orally Active as directed ZyrTEC [facility] 68557563435 10 MG Orally Active 1 tablet Once a day Vitamin D [facility] 34757766782 1000 UNIT Active 3 capsule Orally Once a day Magnesium ND 46938984267 500 MG Orally Active 1/2 tablet Gluconate daily Loratadine ND 61200666482 10 MG Orally Active 1 tablet PRN Lamictal ND 37825957652 100 MG Orally Active 1 tablet once a day Polytrim ND 54633159121 82777-8.1 Sep 19, Sep 24, Active 1 drop into UNIT/ML 2018 2018 affected Ophthalmic Four eye times a day Amlodipine ND 60308918392 10 MG Orally Active 1 tablet Besylate Once a day Xyzal NDC 0 5 mg orally Active 1 tab daily Crestor ND 99484652564 40 MG Orally Active 1 tablet Once a day Voltaren [facility] 30116971686 1 % topically Active not defined Four times a day CoQ10 ND 45363480618 200 MG Orally Active 1 capsule Once a day with a meal Benzonatate ND 10448001284 200 MG Orally Sep 04, Active 1 capsule Three times a 2018 day Simvastatin ND 20659335152 40 MG Orally Active 1 tablet in Once a day the evening Celexa ND 46373020023 40 MG Orally Active 1 tablet Once a day Fish Oil ND 66415016018 1000 MG Orally Active 1 capsule Once a day Azithromycin ND 79510270688 250 MG Orally Sep 04, Active 2 tablets Once a day 2018 on the first day, then 1 tablet daily for 4 days Results No Known Results Summary Purpose eClinicalWorks Submission
--- OUTSIDE RECORDS SUMMARY | 2019-02-21 21:09 | XMS REPORT ---
[...] Date Status Dosage System Date Azithromycin NDC 55742310461 250 MG Orally Sep 04, Active 2 tablets Once a day 2018 on the first day, then 1 tablet daily for 4 days Benzonatate NDC 54737113059 200 MG Orally Sep 04, Active 1 capsule Three times a 2019 day Results No Known Results Summary Purpose eClinicalWorks Submission
--- OUTSIDE RECORDS SUMMARY | 2019-02-21 21:10 | XMS REPORT ---
[...] Allergy Baclofen Info Not Available Drug Allergy Cephalosporin(e.g. CECLOR) Info Not Available Non Drug Allergy Cephalosporin Info Not Available Non Drug Allergy QUINILONE(e.g. 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 Problem Seasonal allergic rhinitis due to J30.1 Active pollen Problem Bipolar 1 disorder F31.9 Active Problem Cough R05 Active Assessment Obesity E66.9 Active Problem 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 Active Problem [...] Problem 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 Problem CAREY (nonalcoholic steatohepatitis) K75.81 Active Medications Medication Code Code Instructions Start End Status Dosage System Date Date Ambien [facility] 12660984501 10 MG Orally Active 1 tablet at Once a day bedtime as needed Vitamin D [facility] 36550457572 1000 UNIT Active 3 capsule Orally Once a day Lyrica [facility] 30118764176 300 MG Orally Active 1 capsule Twice a day Loratadine ND 72087786147 10 MG Orally Active 1 tablet PRN Simvastatin ND 44170790685 40 MG Orally Active 1 tablet in Once a day the evening Lamictal ND 55762096269 100 MG Orally Active 1 tablet once a day ZyrTEC ND 20990435237 10 MG Orally Active 1 tablet Once a day Celexa ND 24431462502 40 MG Orally Active 1 tablet Once a day Voltaren [facility] 40442496790 1 % topically Active not defined Four times a day Amlodipine ND 54185171425 10 MG Orally Active 1 tablet Besylate Once a day Azithromycin ND 94281768778 250 MG Orally Sep 04, Active 2 tablets Once a day 2018 on the first day, then 1 tablet daily for 4 days Benzonatate ND 14915509596 200 MG Orally Sep 04, Active 1 capsule Three times a 2018 day CoQ10 ND 62036796300 200 MG Orally Active 1 capsule Once a day with a meal Magnesium [facility] 89003112635 500 MG Orally Active 1/2 tablet Gluconate daily Crestor ND 09863228621 40 MG Orally Active 1 tablet Once a day HANDICAP PLACARD ND 0 January 01, Active as directed 2017 Fish Oil ND 82450681851 1000 MG Orally Active 1 capsule Once a day Melatonin ND 20148377025 10 MG Orally Active as directed Xyzal ND 0 5 mg orally Active 1 tab daily Results No Known Results Summary Purpose eClinicalWorks Submission
[2019-02-21] MEDS ORDERED: NA CHLORIDE 0.9% 1,000 ML ONE ×2 (21:55→22:26)
[2019-02-21 22:19] LABS: Absolute Lymphocytes (CBC) 1.9 K/uL (0.7-4.9); Basophils % 1.4 % (0-1.3); Eosinophils % 2.4 % (0-4.4); Hematocrit 33.6 % (39.6-49.0); Lymphocytes % 27.6 % (15.3-44.8); MPV 10.8 fL (7.6-11.3); Monocytes % 9.8 % (3.3-12.3); RBC Red Blood Cell Count 3.79 M/uL (4.33-5.43)
[2019-02-21 22:25] LABS: Protime INR 1.15
[2019-02-21 22:41] LABS: ALT/SGPT 29 U/L (12-78); AST/SGOT 23 U/L (15-37); Albumin 2.9 g/dL (3.4-5.0); Alkaline Phosphatase 66 U/L (45-117); BUN Blood Urea Nitrogen 25 mg/dL (7-18); Bicarbonate 31 mmol/L (21-32); Bilirubin Direct < 0.1 mg/dL (0-0.2); Bilirubin Total 0.4 mg/dL (0.2-1.0); Glucose Level 78 mg/dL (74-106); Magnesium 1.6 mg/dL (1.8-2.4); NT PRO-BNP 76 pg/mL (<125); Potassium 4.8 mmol/L (3.5-5.1); Protein, Total 6.7 g/dL (6.4-8.2); Sodium Level 144 mmol/L (136-145); Troponin (Emerg Dept Use Only) < 0.02 ng/mL (0.0-0.045)
[2019-02-21 23:48] LABS: Urine Appearance CLEAR; Urine Bilirubin NEGATIVE (NEG); Urine Blood NEGATIVE (NEG); Urine Color YELLOW; Urine Glucose NEGATIVE (NEG); Urine Protein 3+ (NEG); Urine Specific Gravity 1.015 (1.005-1.030); Urine Urobilinogen 0.2 mg/dL (0.2-1.0)
[2019-02-21 23:50] LABS: Urine Microscopic Reflex ORDER UMIC
[2019-02-21 23:56] LABS: Urine Bacteria <20 /HPF (NONE SEEN); Urine Culture Reflex Order NOT NEEDED; Urine RBC NONE SEEN /HPF (NONE SEEN)
--- NOTE | 2019-02-22 00:09 | ER ---
Nurse's Notes [facility] Name: Jose G Perera Age: 38 yrs Sex: Male : 1980 Arrival Date: 02/21/2019 Time: 21:16 Bed 20 Private MD: Diagnosis: Syncopal episodes. Transient hypotension Presentation: 02/21 21:17 Presenting complaint: Mother states: Patient has a hx of hypotension, but today went to [facility] dinner and had syncopal episode x3 while sitting at dinner at restaurant, unable to recover; Mother states patient was taken home and had another syncopal episode, was transferred to ground, BP 62/42 at home prior to EMS arrival; On arrival of EMS, BP low, IV fluids administered with improvement; Patient given dose of Midodrine as prescribed. Transition of care: patient was not received from another setting of care. Onset of symptoms was February 21, 2019. Risk Assessment: Do you want to hurt yourself or someone else? Patient reports no desire to harm self or others. Initial Sepsis Screen: Does the patient meet any 2 criteria? No. Patient's initial sepsis screen is negative. Does the patient have a suspected source of infection? No. Patient's initial sepsis screen is negative. Care prior to arrival: Medication(s) given: Normal saline infusion, 650 ml IV initiated. 20 GA, in the right antecubital area, Glucose check: 105. 21:17 Method Of Arrival: EMS: [facility] 21:17 Acuity: MANISHA 3 lp1 Triage Assessment: 02/22 00:16 General: Appears in no apparent distress. Neuro: Reports a syncopal episode. ak1 Historical: - Allergies: 02/21 21:26 CEPHALOSPORINS; lp1 21:26 Levaquin; lp1 21:26 Ciprofloxacin; lp1 21:26 Morphine; lp1 21:26 Demerol; lp1 21:26 Dilaudid; lp1 21:26 Phenergan; lp1 21:26 BACLOFEN; lp1 - Home Meds: 21:26 Lyrica Oral 2 times per day [Active]; Uloric 40 mg oral tab 1 tab once daily [Active]; lp1 citalopram 40 mg tab 1 tab once daily [Active]; lamotrigine 100 mg oral tab 1 tab once daily [Active]; Ambien 10 mg Oral tab nightly [Active]; Augmentin 875-125 mg Oral tab 1 tab every 12 hours [Active]; Protonix Oral once daily [Active]; - PMHx: 21:26 amyldosis; Anxiety; bradycardia, hypotension, hypertension; Diverticulitis; Gout; lp1 Hyperlipidemia; mutiple myeloma; neuropathy; Pancreatitis; seizure due to hypoxia; - PSHx: 21:26 Appendectomy; hypospadius surgery; pancreas surgery; Hernia repair; Bowel resection; lp1 eye surgery; - Immunization history:: Adult Immunizations up to date. - Social history:: Smoking status: Patient/guardian denies using tobacco. - Ebola Screening: : No symptoms or risks identified at this time. Screenin:27 Abuse screen: Denies threats or abuse. Denies injuries from another. Nutritional lp1 screening: No deficits noted. Tuberculosis screening: No symptoms or risk factors identified. Fall Risk Total Sandy Fall Scale indicates High Risk Score (45 or more points). Fall prevention measures have been instituted. Side Rails Up X 2 Family Present and informed to notify staff if the need to leave the bedside As available patient and family educated on Fall Prevention Program and Strategies. Assessment: 22:11 General: Appears in no apparent distress. Behavior is calm, cooperative. Pain: Denies ak1 pain. Neuro: Level of Consciousness is awake, alert, obeys commands, Oriented to person, place, time, situation, Plant Health Manager are equal bilaterally Speech is normal. Cardiovascular: No deficits noted. Respiratory: No deficits noted. GI: No signs and/or symptoms were reported involving the gastrointestinal system. GI: no N/V/D reported. : No signs and/or symptoms were reported regarding the genitourinary system. EENT: No signs and/or symptoms were reported regarding the EENT system. Derm: No signs and/or symptoms reported regarding the dermatologic system. Musculoskeletal: No signs and/or symptoms reported regarding the musculoskeletal system. 22:57 Cardiovascular: Rhythm is regular. ak1 Vital Signs: 21:21 BP 110 / 50; Pulse 71; Resp 16; Temp 98.4(O); Pulse Ox 99% on R/A; Weight 90.72 kg; lp1 Height 5 ft. 4 in. (162.56 cm); Pain 0/10; 21:40 BP 105 / 66; Pulse 70; Resp 18; Pulse Ox 98% on R/A; ak1 22:00 BP 95 / 37; Pulse 66; Resp 18; Pulse Ox 99% on R/A; ak1 22:30 BP 113 / 58; Pulse 64; Resp 18; Pulse Ox 99% on R/A; ak1 23:23 BP 103 / 58; Pulse 66; Resp 18; Temp 98.7(O); Pulse Ox 99% on R/A; ak1 23:27 BP 86 / 73 LA Standing (auto/reg); Pulse 73; Resp 18; Pulse Ox 100% ; ak1 23:32 BP 101 / 53 LA Sitting (auto/reg); Pulse 78; Resp 18; Pulse Ox 100% on R/A; ak1 02/22 00:16 BP 128 / 67; Pulse 69; Resp 16; Pulse Ox 100% on R/A; Pain 0/10; ak1 02/21 21:21 Body Mass Index 34.33 (90.72 kg, 162.56 cm) lp1 ED Course: 02/21 21:16 Patient arrived in ED. lp1 21:20 Otoniel Connell MD is Attending Physician. pkl 21:21 Triage completed. lp1 21:21 Arm band placed on. lp1 21:27 Patient has correct armband on for positive identification. Placed in gown. Bed in low lp1 position. Side rails up X2. monitor worker on. Pulse ox on. NIBP on. 21:57 Antonella Padgett, RN is Primary Nurse. ak1 22:10 XRAY Chest (1 view) In Process Unspecified. EDMS 22:12 Maintain EMS IV. Dressing intact. Good blood return noted. Site clean \T\ dry. Gauge \T\ ak 1 site: 20g right AC. 02/22 00:15 Awaiting: IV infusion to complete. ak1 01:32 No provider procedures requiring assistance completed. IV discontinued, intact, ak1 bleeding controlled, No redness/swelling at site. Pressure dressing applied. Administered Medications: 02/21 22:21 Drug: NS 0.9% 1000 ml Route: IV; Rate: 100 ml/hr; Site: right antecubital; ak1 02/22 01:31 Follow up: IV Status: Order to discontinue infusion ak1 00:14 Drug: Magnesium Sulfate 1 grams Route: IVPB; Infused Over: 1 hrs; Site: right ak1 antecubital; 01:31 Follow up: IV Status: Completed infusion; IV Intake: 100ml ak1 Intake: :31 IV: 100ml; Total: 100ml. ak1 Outcome: 00:08 Discharge ordered by . valerio 01:32 Discharged to home ambulatory, with family, pt ambulated with steady gait at discharge ak1 with family. 01:32 Condition: good 01:32 Discharge instructions given to patient, family, Instructed on discharge instructions, follow up and referral plans. Demonstrated understanding of instructions, follow-up care, medications. 01:34 Patient left the ED. ak1 Signatures: Dispatcher [employer] EDMS Otoniel Connell MD MD pkl Pena, Laura RN RN 1 Antonella Padgett RN RN ak1
--- NOTE | 2019-02-22 00:10 | EDPHYS ---
Physician Documentation [facility] Name: Jose G Perera Age: 38 yrs Sex: Male : 1980 Arrival Date: 02/21/2019 Time: 21:16 Bed 20 Private MD: ED Physician Otoniel Connell HPI: 02/21 21:52 This 38 yrs old Male presents to ER via EMS with complaints of Syncope. pkl 21:52 The patient has experienced syncope, became unresponsive. Onset: The symptoms/episode pkl began/occurred just prior to arrival. Associated injury: The patient did not suffer any apparent associated injury. The patient has experienced similar episodes in the past, multiple times. Patient discharged from [facility] 1 week ago after being in the hospital for 40 days for diverticulitis. On Augmentin at present.. Patient has H/O hypotension and syncopal episodes.. Historical: - Allergies: 21:26 CEPHALOSPORINS; lp1 21:26 Levaquin; lp1 21:26 Ciprofloxacin; lp1 21:26 Morphine; lp1 21:26 Demerol; lp1 21:26 Dilaudid; lp1 21:26 Phenergan; lp1 21:26 BACLOFEN; lp1 - Home Meds: 21:26 Lyrica Oral 2 times per day [Active]; Uloric 40 mg oral tab 1 tab once daily [Active]; lp1 citalopram 40 mg tab 1 tab once daily [Active]; lamotrigine 100 mg oral tab 1 tab once daily [Active]; Ambien 10 mg Oral tab nightly [Active]; Augmentin 875-125 mg Oral tab 1 tab every 12 hours [Active]; Protonix Oral once daily [Active]; - PMHx: 21:26 amyldosis; Anxiety; bradycardia, hypotension, hypertension; Diverticulitis; Gout; lp1 Hyperlipidemia; mutiple myeloma; neuropathy; Pancreatitis; seizure due to hypoxia; - PSHx: 21:26 Appendectomy; hypospadius surgery; pancreas surgery; Hernia repair; Bowel resection; lp1 eye surgery; - Immunization history:: Adult Immunizations up to date. - Social history:: Smoking status: Patient/guardian denies using tobacco. - Ebola Screening: : No symptoms or risks identified at this time. ROS: 21:52 Eyes: Negative for injury, pain, redness, and discharge, ENT: Negative for injury, pkl pain, and discharge, Neck: Negative for injury, pain, and swelling, Cardiovascular: Negative for chest pain, palpitations, and edema, Respiratory: Negative for shortness of breath, cough, wheezing, and pleuritic chest pain, Abdomen/GI: Negative for abdominal pain, nausea, vomiting, diarrhea, and constipation, Back: Negative for injury and pain, : Negative for injury, bleeding, discharge, and swelling, MS/Extremity: Negative for injury and deformity, Skin: Negative for injury, rash, and discoloration. 21:52 Neuro: Positive for syncope. Exam: 21:52 Abdomen/GI: Inspection: abdomen appears normal, Bowel sounds: normal, Palpation: pkl abdomen is soft and non-tender, in all quadrants. 21:52 Head/Face: Normocephalic, atraumatic. Eyes: Pupils equal round and reactive to light, extra-ocular motions intact. Lids and lashes normal. Conjunctiva and sclera are non-icteric and not injected. Cornea within normal limits. Periorbital areas with no swelling, redness, or edema. ENT: Nares patent. No nasal discharge, no septal abnormalities noted. Tympanic membranes are normal and external auditory canals are clear. Oropharynx with no redness, swelling, or masses, exudates, or evidence of obstruction, uvula midline. Mucous membranes moist. Neck: Trachea midline, no thyromegaly or masses palpated, and no cervical lymphadenopathy. Supple, full range of motion without nuchal rigidity, or vertebral point tenderness. No Meningismus. Chest/axilla: Normal chest wall appearance and motion. Nontender with no deformity. No lesions are appreciated. Cardiovascular: Regular rate and rhythm with a normal S1 and S2. No gallops, murmurs, or rubs. Normal PMI, no JVD. No pulse deficits. Respiratory: Lungs have equal breath sounds bilaterally, clear to auscultation and percussion. No rales, rhonchi or wheezes noted. No increased work of breathing, no retractions or nasal flaring. Abdomen/GI: Soft, non-tender, with normal bowel sounds. No distension or tympany. No guarding or rebound. No evidence of tenderness throughout. Back: No spinal tenderness. No costovertebral tenderness. Full range of motion. Skin: Warm, dry with normal turgor. Normal color with no rashes, no lesions, and no evidence of cellulitis. MS/ Extremity: Pulses equal, no cyanosis. Neurovascular intact. Full, normal range of motion. Neuro: Awake and alert, GCS 15, oriented to person, place, time, and situation. Cranial nerves II-XII grossly intact. Motor strength 5/5 in all extremities. Sensory grossly intact. Cerebellar exam normal. Normal gait. Vital Signs: 21:21 BP 110 / 50; Pulse 71; Resp 16; Temp 98.4(O); Pulse Ox 99% on R/A; Weight 90.72 kg; lp1 Height 5 ft. 4 in. (162.56 cm); Pain 0/10; 21:40 BP 105 / 66; Pulse 70; Resp 18; Pulse Ox 98% on R/A; ak1 22:00 BP 95 / 37; Pulse 66; Resp 18; Pulse Ox 99% on R/A; ak1 22:30 BP 113 / 58; Pulse 64; Resp 18; Pulse Ox 99% on R/A; ak1 23:23 BP 103 / 58; Pulse 66; Resp 18; Temp 98.7(O); Pulse Ox 99% on R/A; ak1 23:27 BP 86 / 73 LA Standing (auto/reg); Pulse 73; Resp 18; Pulse Ox 100% ; ak1 23:32 BP 101 / 53 LA Sitting (auto/reg); Pulse 78; Resp 18; Pulse Ox 100% on R/A; ak1 02/22 00:16 BP 128 / 67; Pulse 69; Resp 16; Pulse Ox 100% on R/A; Pain 0/10; ak1 02/21 21:21 Body Mass Index 34.33 (90.72 kg, 162.56 cm) lp1 MDM: 02/21 21:20 Patient medically screened. pkl 02/22 00:04 Data reviewed: vital signs, nurses notes, lab test result(s), EKG, radiologic studies, pkl plain films. ED course: Patient feeling better. Vital signs stable. Ambulate without difficulty. Patient want to go home. Advised to return if symptoms recur.. 02/21 21:50 Order name: Basic Metabolic Panel; Complete Time: 23:59 pkl 02/21 21:50 Order name: CBC with Diff; Complete Time: 23:59 pkl 02/21 21:50 Order name: LFT's; Complete Time: 23:59 pkl 02/21 21:50 Order name: Magnesium; Complete Time: 23:59 pkl 02/21 21:50 Order name: NT PRO-BNP; Complete Time: 23:59 pkl 02/21 21:50 Order name: PT-INR; Complete Time: 23:59 pkl 02/21 21:50 Order name: Troponin (emerg Dept Use Only); Complete Time: 23:59 pkl 02/21 21:50 Order name: XRAY Chest (1 view) pkl 02/21 21:50 Order name: UA; Complete Time: 23:59 pkl 02/21 21:50 Order name: Lactate; Complete Time: 23:59 pkl 02/21 21:50 Order name: Procalcitonin; Complete Time: 23:59 pkl 02/21 23:42 Order name: Urine Dipstick--Ancillary (enter results); Complete Time: 02:17 cm6 02/21 23:52 Order name: Urine Microscopic Only; Complete Time: 23:59 EDMS 02/21 21:50 Order name: EKG; Complete Time: 21:55 pkl 02/21 21:50 Order name: Cardiac monitoring; Complete Time: 21:58 pkl 02/21 21:50 Order name: EKG - Nurse/Tech; Complete Time: 21:58 pkl 02/21 21:50 Order name: IV Saline Lock; Complete Time: 22:21 pkl 02/21 21:50 Order name: Labs collected and sent; Complete Time: 22:21 pkl 02/21 21:50 Order name: O2 Per Protocol; Complete Time: 21:58 pkl 02/21 21:50 Order name: O2 Sat Monitoring; Complete Time: 21:58 pkl Administered Medications: 02/21 22:21 Drug: NS 0.9% 1000 ml Route: IV; Rate: 100 ml/hr; Site: right antecubital; ak1 02/22 01:31 Follow up: IV Status: Order to discontinue infusion ak1 00:14 Drug: Magnesium Sulfate 1 grams Route: IVPB; Infused Over: 1 hrs; Site: right ak1 antecubital; 01:31 Follow up: IV Status: Completed infusion; IV Intake: 100ml ak1 Disposition: 02/22/19 00:08 Discharged to Home. Impression: Syncopal episodes. Transient hypotension. - Condition is Stable. - Medication Reconciliation Form, Thank You Letter, Antibiotic Education, Prescription Opioid Use form. - Follow up: Private Physician; When: 2 - 3 days; Reason: Re-evaluation by your physician. - Problem is new. - Symptoms have improved. Signatures: Dispatcher [employer] EDNE Otoniel Connell MD MD pkl Rebecca Rubin RN RN lp1 Antonella Padgett RN RN ak1 Corrections: (The following items were deleted from the chart) 01:34 00:08 02/22/2019 00:08 Discharged to Home. Impression: Syncopal episodes. Transient ak1 hypotension. Condition is Stable. Forms are Medication Reconciliation Form, Thank You Letter, Antibiotic Education, Prescription Opioid Use. Follow up: Private Physician; When: 2 - 3 days; Reason: Re-evaluation by your physician. Problem is new. Symptoms have improved. pkl
[2019-02-22] MEDS ORDERED: MAGNESIUM SULFATE 1 gm IVPB 1 GM/100 ML BAG IV ONE (00:23)
[2019-02-22 01:20] LABS: Urine Blood NEGATIVE (NEG); Urine Glucose NEGATIVE (NEG); Urine Protein 3+ (NEG); Urine Specific Gravity 1.025 (1.005-1.030)
[2019-02-22 03:09] VITALS: TEMP 98.7
[2019-02-22 03:10] VITALS: O2SAT 100
[2019-02-22 03:13] VITALS: BP 128/67
--- NOTE | 2019-02-22 07:18 | EKG ---
Test Date: 2019-02-21 Test Time: 21:36:46 Wrecker Driver: [id number] MEASUREMENT RESULTS: Intervals: Rate: 68 HI: 158 QRSD: 84 QT: 394 QTc: 418 [place]: P: 65 HI: 158 QRS: 55 T: 17 INTERPRETIVE STATEMENTS: Normal sinus rhythm Nonspecific T wave abnormality Abnormal ECG Compared to ECG 10/26/2018 16:03:07 T-wave abnormality now present Electronically Signed On 02-22-19 07:18:18 CDT by Jani More
--- NOTE | 2019-02-22 11:22 | RAD REPORT ---
EXAM DESCRIPTION: RAD - Chest Single View - 02/21/2019 10:10 pm CLINICAL HISTORY: syncope Chest pain. COMPARISON: Chest Single View dated 10/26/2018; Chest Single View dated 09/25/2018; Chest Single View da mel 03/26/2018; Chest Single View dated 12/20/2017 FINDINGS: Portable technique limits examination quality. The lungs are grossly clear. The heart is moderately prominent. Right-sided port catheter tip in the SVC. IMPRESSION: No acute intrathoracic process suspected.
== END 2019-02-22 01:34 | disposition home or self-care (01) ==
LOC: ER 21:04
DX: R55 Syncope and collapse (principal); I95.89 Other hypotension; F41.9 Anxiety disorder, unspecified; I10 Essential (primary) hypertension; M10.9 Gout, unspecified; E78.5 Hyperlipidemia, unspecified; C90.00 Multiple myeloma not having achieved remission; Z88.1 Allergy status to other antibiotic agents; Z88.5 Allergy status to narcotic agent
CPT/HCPCS: 36415; 71045; 80048; 80076; 81003; 81015; 83605; 83735; 83880; 84145; 84484; 85025; 85610; 93005; 96361; 96365; 99284; J3475; J7030

== ENCOUNTER 2019-09-14 19:45 | Emergency (ER) | payer BC, OTHER ==
--- OUTSIDE RECORDS SUMMARY | 2019-09-14 19:47 | XMS REPORT ---
[...] Status Dosage System Date Date Lexapro ND 46712540587 20 MG Orally Active 0.5 tablet Once a day Amlodipine ND 19189357274 10 MG Orally Active 1 tablet Besylate Once a day Melatonin ND 56236308342 10 MG Orally Active as directed Lamictal ND 84312458789 100 MG Orally Active 1 tablet once a day Voltaren ND 82334848565 1 % topically Active not defined Four times a day Magnesium ND 46925639838 500 MG Orally Active 1/2 tablet Gluconate daily Celexa [facility] 19519206337 40 MG Orally Active 0.5 tablet Once a day Fish Oil [facility] 87978220202 1000 MG Orally Active 1 capsule Once a day CoQ10 [facility] 45118959947 200 MG Orally Active 1 capsule Once a day with a meal Loratadine [facility] 55311979689 10 MG Orally Active 1 tablet PRN Ambien [facility] 30703467495 10 MG Orally Active 1 tablet at Once a day bedtime as needed HANDICAP ND 0 January 01, Active as directed CARLOS2017 Simvastatin [facility] 94636727115 40 MG Orally Active 1 tablet in Once a day the evening Crestor [facility] 14120515796 20 MG Active TAKE 1 TABLET BY MOUTH AT BEDTIME Lyrica [facility] 16117546077 300 MG Orally Active 1 capsule Twice a day Results No Known Results Summary Purpose eClinicalWorks Submission
--- OUTSIDE RECORDS SUMMARY | 2019-09-14 19:48 | XMS REPORT ---
[...] Status Dosage System Date Date Lamictal ND 90040238377 100 MG Orally Active 1 tablet once a day Celexa ND 50427247357 40 MG Orally Active 1 tablet Once a day Melatonin ND 71813848252 10 MG Orally Active as directed Loratadine ND 53097886958 10 MG Orally Active 1 tablet PRN Xyzal NDC 0 5 mg orally Active 1 tab daily CoQ10 ND 63026394995 200 MG Orally Active 1 capsule Once a day with a meal ZyrTEC [facility] 76250266420 10 MG Orally Active 1 tablet Once a day Fish Oil ND 61374713215 1000 MG Orally Active 1 capsule Once a day Voltaren ND 98153582324 1 % topically Active not defined Four times a day Amlodipine ND 49997456164 10 MG Orally Active 1 tablet Besylate Once a day Benzonatate ND 02841845523 200 MG Orally Sep 04, Active 1 capsule Three times a 2019 day Simvastatin ND 04659143055 40 MG Orally Active 1 tablet in Once a day the evening Magnesium ND 18275767221 500 MG Orally Active 1/2 tablet Gluconate daily Ambien ND 95978396217 10 MG Orally Active 1 tablet at Once a day bedtime as needed Azithromycin ND 56409954047 250 MG Orally Sep 04, Active 2 tablets Once a day 2018 on the first day, then 1 tablet daily for 4 days HANDICAP PLACARD ND 0 January 01, Active as directed 2017 Lyrica ND 59927417801 300 MG Orally Active 1 capsule Twice a day Vitamin D ND 57987914924 1000 UNIT Active 3 capsule Orally Once a day Crestor ND 68042435145 40 MG Orally Active 1 tablet Once a day Results No Known Results Summary Purpose eClinicalWorks Submission
--- OUTSIDE RECORDS SUMMARY | 2019-09-14 19:48 | XMS REPORT ---
[...] End Status Dosage System Date Date Ambien [facility] 03845976804 10 MG Orally Active 1 tablet at Once a day bedtime as needed Vitamin D [facility] 34291876794 1000 UNIT Active 3 capsule Orally Once a day Lyrica [facility] 99848465357 300 MG Orally Active 1 capsule Twice a day Loratadine ND 26406695543 10 MG Orally Active 1 tablet PRN Simvastatin ND 02645096862 40 MG Orally Active 1 tablet in Once a day the evening Lamictal ND 17822637519 100 MG Orally Active 1 tablet once a day ZyrTEC ND 13488697233 10 MG Orally Active 1 tablet Once a day Celexa ND 70295653857 40 MG Orally Active 1 tablet Once a day Voltaren [facility] 78288073002 1 % topically Active not defined Four times a day Amlodipine ND 03788483119 10 MG Orally Active 1 tablet Besylate Once a day Azithromycin ND 43225548190 250 MG Orally Sep 04, Active 2 tablets Once a day 2018 on the first day, then 1 tablet daily for 4 days Benzonatate ND 89224829222 200 MG Orally Sep 04, Active 1 capsule Three times a 2018 day CoQ10 ND 09308244530 200 MG Orally Active 1 capsule Once a day with a meal Magnesium [facility] 08772698934 500 MG Orally Active 1/2 tablet Gluconate daily Crestor ND 35785045197 40 MG Orally Active 1 tablet Once a day HANDICAP PLACARD ND 0 January 01, Active as directed 2017 Fish Oil ND 71168232161 1000 MG Orally Active 1 capsule Once a day Melatonin ND 06116000049 10 MG Orally Active as directed Xyzal ND 0 5 mg orally Active 1 tab daily Results No Known Results Summary Purpose eClinicalWorks Submission
--- OUTSIDE RECORDS SUMMARY | 2019-09-14 19:48 | XMS REPORT ---
[...] Date Status Dosage System Date Azithromycin NDC 41163420916 250 MG Orally Sep 04, Active 2 tablets Once a day 2018 on the first day, then 1 tablet daily for 4 days Benzonatate NDC 33823688936 200 MG Orally Sep 04, Active 1 capsule Three times a 2019 day Results No Known Results Summary Purpose eClinicalWorks Submission
--- OUTSIDE RECORDS SUMMARY | 2019-09-14 19:48 | XMS REPORT ---
[...] NDC 0 Active not defined Azithromycin ND 89532304557 250 MG Orally Sep 04, Active 2 tablets Once a day 2018 on the first day, then 1 tablet daily for 4 days Amlodipine ND 92079196319 10 MG Orally Active 1 tablet Besylate Once a day Fish Oil ND 60766731556 1000 MG Orally Active 1 capsule Once a day Lyrica ND 98857161883 300 MG Orally Active 1 capsule Twice a day Crestor [facility] [address]-29 Active not defined Melatonin [facility] 83341944862 10 MG Orally Active as directed Loratadine [facility] 21923805163 10 MG Orally Active 1 tablet PRN Simvastatin [facility] 61802206566 40 MG Orally Active 1 tablet Once a day in the evening ZyrTEC [facility] 42138507734 10 MG Orally Active 1 tablet Once a day CoQ10 [facility] 23803258289 200 MG Orally Active 1 capsule Once a day with a meal Lamictal [facility] 79463708959 100 MG Orally Active 1 tablet once a day Vitamin D [facility] [address]-45 Active not defined Benzonatate [facility] 67969124420 200 MG Orally Sep 04, Active 1 capsule Three times a 2018 day Ambien [facility] 39781825579 10 MG Orally Active 1 tablet Once a day at bedtime as needed Celexa [facility] 41652278940 40 MG Orally Active 1 tablet Once a day HANDICAP ND 0 January 01, Active as PLACARD 2018 directed Voltaren [facility] 61992930696 1 % topically Active not Four times a defined day Magnesium [facility] 48754494831 500 MG Orally Active 1/2 tablet Gluconate daily Results Name Result Date Reference Range Unit Abnormality Flag EAR IRRIGATION BY LAVAGE Summary Purpose eClinicalWorks Submission
--- OUTSIDE RECORDS SUMMARY | 2019-09-14 19:48 | XMS REPORT ---
[...] January 01, Active as directed [address] [facility] 16939803523 10 MG Orally Active 1 tablet at Once a day bedtime as needed Lyrica [facility] 35517771898 300 MG Orally Active 1 capsule Twice a day Melatonin [facility] 97786487304 10 MG Orally Active as directed ZyrTEC [facility] 14243474453 10 MG Orally Active 1 tablet Once a day Vitamin D [facility] 74338296702 1000 UNIT Active 3 capsule Orally Once a day Magnesium ND 78083755446 500 MG Orally Active 1/2 tablet Gluconate daily Loratadine ND 50959679558 10 MG Orally Active 1 tablet PRN Lamictal ND 53986013413 100 MG Orally Active 1 tablet once a day Polytrim ND 63413993313 04892-6.1 Sep 19, Sep 24, Active 1 drop into UNIT/ML 2018 2018 affected Ophthalmic Four eye times a day Amlodipine ND 93103140998 10 MG Orally Active 1 tablet Besylate Once a day Xyzal NDC 0 5 mg orally Active 1 tab daily Crestor ND 99647545695 40 MG Orally Active 1 tablet Once a day Voltaren [facility] 19938380972 1 % topically Active not defined Four times a day CoQ10 ND 11841111891 200 MG Orally Active 1 capsule Once a day with a meal Benzonatate ND 49608996344 200 MG Orally Sep 04, Active 1 capsule Three times a 2018 day Simvastatin ND 24660209471 40 MG Orally Active 1 tablet in Once a day the evening Celexa ND 82182321015 40 MG Orally Active 1 tablet Once a day Fish Oil ND 80136633553 1000 MG Orally Active 1 capsule Once a day Azithromycin ND 09474629196 250 MG Orally Sep 04, Active 2 tablets Once a day 2018 on the first day, then 1 tablet daily for 4 days Results No Known Results Summary Purpose eClinicalWorks Submission
--- OUTSIDE RECORDS SUMMARY | 2019-09-14 19:49 | XMS REPORT ---
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 Problem Mixed hyperlipidemia E78.2 Active Problem Hospital discharge follow-up Z09 Active Problem Cough R05 Active Problem Hypomagnesemia E83.42 Active Problem Bipolar 1 disorder F31.9 Active Problem Orthostatic hypotension I95.1 Active Problem 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 Problem Seasonal allergies J30.2 Active Problem 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 Problem Seasonal allergic rhinitis due to J30.1 Active pollen Problem Flat foot [pes planus] (acquired), M21.40 Active unspecified foot Problem 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 Problem Obstructive sleep apnea (adult) G47.33 Active (pediatric) Problem Chronic pancreatitis K86.1 Active Problem 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 Problem Peripheral neuropathy G62.9 Active Problem CAREY (nonalcoholic steatohepatitis) K75.81 Active Problem Acute gout M10.9 Active Medications Medication Code Code Instructions Start End Status Dosage System Date Date Lamictal ND 53199779115 100 MG Orally Active 1 tablet once a day CoQ10 NDC 64844771769 200 MG Orally Active 1 capsule Once a day with a meal Celexa [facility] 36840259830 40 MG Orally Active 1 tablet Once a day Fish Oil [facility] 71327947156 1000 MG Orally Active 1 capsule Once a day Xyzal NDC 0 5 mg orally Active 1 tab daily Uloric [facility] 04544876280 40 MG Orally Active 1 tablet Once a day Simvastatin [facility] 31630364751 40 MG Orally Active 1 tablet Once a day in the evening Augmentin [facility] [address]-81 - Orally every Active 10 ml 8 hrs Ambien [facility] 56147824444 10 MG Orally Active 1 tablet Once a day at bedtime as needed Magnesium [facility] 92211828266 500 MG Orally Active 1/2 tablet Gluconate daily Lyrica [facility] 05388412014 300 MG Orally Active 1 capsule Twice a day Vitamin D [facility] 50006887194 1000 UNIT Active 3 capsule Orally Once a day Melatonin [facility] 71603538779 10 MG Orally Active as directed Fludrocortisone [facility] 83294202275 0.1 MG Orally Active 1 tablet Acetate Three times a Week Midodrine HCl [facility] 16419031184 5 MG Orally Active 1 tablet Three times a day ZyrTEC [facility] 81302541964 10 MG Orally Active 1 tablet Once a day HANDICAP PLACARD [facility] 0 January 01, Active as 2018 directed Results No Known Results Summary Purpose eClinicalWorks Submission
[2019-09-14 21:12] LABS: Absolute Lymphocytes (CBC) 2.2 K/uL (0.7-4.9); Basophils % 1.1 % (0-1.3); Hematocrit 27.2 % (39.6-49.0); Lymphocytes % 28.8 % (15.3-44.8); MPV 10.6 fL (7.6-11.3); RBC Red Blood Cell Count 3.02 M/uL (4.33-5.43)
[2019-09-14 21:29] LABS: Potassium 3.4 mmol/L (3.5-5.1)
[2019-09-14] MEDS ORDERED: NA CHLORIDE 0.9% 1,000 ML ONE (21:42)
[2019-09-14] MEDS ORDERED: PIPER/TAZO/NS 3.375gm 3.375 GM/100 ML BAG ONE (23:25)
--- NOTE | 2019-09-15 00:37 | ER ---
Nurse's Notes [facility] Name: Jose G Perera Age: 38 yrs Sex: Male : 1980 Arrival Date: 09/14/2019 Time: 19:54 Bed 5 Private MD: Diagnosis: Preseptal cellulitis;Chemosis;Conjunctivitis Presentation: 09/14 20:18 Presenting complaint: Mother states: that last week she noted left eye was swelling. Pt fc was seen by ANGELICA nettles on Sunday and given Tobramycin and Bacitracin for his eye. Pt woke up this afternoon with increased redness, swelling and yellow drainage from the eye. Pt has PICC line due to colon perf in May and has been on TPN since. Pt also has abd drain. Transition of care: patient was not received from another setting of care. Onset of symptoms was September 09, 2019. Risk Assessment: Do you want to hurt yourself or someone else? Patient reports no desire to harm self or others. Care prior to arrival: None. 20:18 Method Of Arrival: Ambulatory fc 20:18 Acuity: MANISHA 3 fc 20:48 Initial Sepsis Screen: Does the patient meet any 2 criteria? No. Patient's initial ea sepsis screen is negative. Does the patient have a suspected source of infection? No. Patient's initial sepsis screen is negative. Historical: - Allergies: 20:30 BACLOFEN; fc 20:30 CEPHALOSPORINS; fc 20:30 Ciprofloxacin; fc 20:30 Demerol; fc 20:30 Dilaudid; fc 20:30 Levaquin; fc 20:30 Morphine; fc 20:30 Phenergan; fc - Home Meds: 20:30 TPN Electrolytes intravenous intravenous [Active]; Ambien 10 mg Oral tab nightly fc [Active]; citalopram 40 mg tab 1 tab once daily [Active]; Lyrica 150 mg Oral 1 cap 2 times per day [Active]; Uloric 40 mg Oral tab 1 tab once daily [Active]; pravastatin 40 mg oral tab 1 tab once daily [Active]; midirine 2.5 mg prn low bp [Active]; fludrocortisone 0.1 mg oral tab 1 tab once daily [Active]; Detrol LA 4 mg Oral cp24 1 cap once daily [Active]; Lamictal XR 100 mg oral tr24 1 tabs once daily [Active]; FML Liquifilm 0.1 % ophthalmic drps 1 drop 2 times per day [Active]; Xydra EF 83-7-2-5-707.5 mg oral cap twice a day [Active]; Vitamin D Oral 1,000 unit 2 am and 1 pm [Active]; - PMHx: 20:30 amyldosis; Anxiety; bradycardia, hypotension, hypertension; Diverticulitis; Gout; fc Hyperlipidemia; neuropathy; mutiple myeloma; seizure due to hypoxia; Pancreatitis; - PSHx: 20:30 Appendectomy; hypospadius surgery; pancreas surgery; Hernia repair; Bowel resection; fc eye surgery; Colon Perf.; - Immunization history:: Last tetanus immunization: up to date Flu vaccine is up to date. - Coronavirus screen:: The patient has NOT traveled to [place], [place], or [place] in the past 14 days. - Social history:: Smoking status: Patient denies any tobacco usage or history of. - Ebola Screening: : Patient negative for fever greater than or equal to 101.5 degrees Fahrenheit, and additional compatible Ebola Virus Disease symptoms Patient denies exposure to infectious person Patient denies travel to an Ebola-affected area in the 21 days before illness onset. Screenin:47 Abuse screen: Denies threats or abuse. Nutritional screening: No deficits noted. ea Tuberculosis screening: No symptoms or risk factors identified. Fall Risk None identified. Assessment: 20:50 General: Appears uncomfortable, Behavior is calm, cooperative. Pain: Complains of pain ea in left eye. Neuro: Level of Consciousness is awake, alert, obeys commands, Oriented to person, place, situation. Respiratory: Airway is patent Respiratory effort is even, unlabored, Respiratory pattern is regular, symmetrical. EENT: Eyes are tearing on outer aspect of conjuctiva of left eye, inner aspect of conjunctiva of left eye and left inner canthus with exudate noted from left inner canthus. Derm: Skin is pink, warm \T\ dry. 22:10 Reassessment: Patient and/or family updated on plan of care and expected duration. Pain ea level reassessed. Patient is alert, oriented x 3, equal unlabored respirations, skin warm/dry/pink. Returned from CT. 23:01 Reassessment: Pt resting with eyes closed, respirations even and unlabored. Chest ea expansions even and symmetrical. No s/s of pain or discomfort noted at this time. Family remains at bedside. 09/15 00:09 Reassessment: Patient and/or family updated on plan of care and expected duration. Pain ea level reassessed. Patient is alert, oriented x 3, equal unlabored respirations, skin warm/dry/pink. Pt resting with eyes closed, respirations even and unlabored, chest expansions even and symmetrical. No s/s of pain or discomfort noted at this time. 00:48 Reassessment: Patient and/or family updated on plan of care and expected duration. Pain ea level reassessed. Patient is alert, oriented x 3, equal unlabored respirations, skin warm/dry/pink. Discharge instruction given to patient and family, both verbalized the understanding of instruction. Vital Signs: 09/14 20:31 BP 120 / 56; Pulse 62; Resp 18; Temp 98.3; Pulse Ox 100% on R/A; Weight 80.29 kg (R); fc Height 5 ft. 4 in. (162.56 cm) (R); Pain 5/10; 22:15 BP 140 / 67; Pulse 68; Resp 18; Pulse Ox 98% ; ea 23:02 BP 115 / 63; Pulse 62; Resp 18; Pulse Ox 100% ; ea 09/15 00:10 BP 109 / 56; Pulse 63; Resp 18; Pulse Ox 96% on R/A; ea 09/14 20:31 Body Mass Index 30.38 (80.29 kg, 162.56 cm) ED Course: 09/14 19:54 Patient arrived in ED. ds1 20:22 Triage completed. fc 20:30 Arm band placed on Patient placed in an exam room, on a stretcher. fc 20:42 [facility] snw 20:42 Nathan Bass MD is Attending Physician. snw 20:47 Marta Delarosa, EMRE is Primary Nurse. ea 20:48 Patient has correct armband on for positive identification. Bed in low position. Call ea light in reach. Side rails up X2. Adult w/ patient. 21:01 Chem 7 Sent. jb5 21:01 CBC with Diff Sent. jb5 21:01 Blood Culture Adult (2) Sent. jb5 22:22 CT completed. Patient tolerated procedure well. Patient moved back from CT. bq 22:40 Orbit W/Wo In Process Unspecified. EDMS 09/15 00:47 No provider procedures requiring assistance completed. Patient did not have IV access ea during this emergency room visit. Administered Medications: 09/14 21:43 Drug: NS 0.9% 1000 ml Route: IV; Rate: 250 ml/hr; Site: PICC; ea 09/15 00:47 Follow up: Response: No adverse reaction; IV Status: Completed infusion ea 09/14 23:32 Drug: Zosyn 3.375 grams Route: IVPB; Infused Over: 60 mins; Site: PICC; ea 09/15 00:47 Follow up: Response: No adverse reaction; IV Status: Completed infusion ea Outcome: 00:36 Discharge ordered by MD. snw 00:47 Discharged to home via wheelchair, with family. ea 00:47 Condition: stable 00:47 Discharge instructions given to family, Instructed on discharge instructions, follow up and referral plans. medication usage, Demonstrated understanding of instructions, follow-up care, medications, Prescriptions given X 2. 00:49 Patient left the ED. ea Signatures: Dispatcher [employer] EDMS Stephanie Garces, BUNDLE SHAKER-C BUNDLE SHAKER-Csnw Kimmie Dwyer Felicia, RN RN Lalita Minaya ds1 Shae White jb5 Marta Delarosa RN RN ea Corrections: (The following items were deleted from the chart) 09/14 20:32 20:18 Presenting complaint: Mother states: that last week she noted left eye was fc swelling. Pt was seen by ANGELICA nettles on Sunday and given Tobramycin and Bacitracin for his eye. Pt woke up this afternoon with increased redness, swelling and yellow drainage from the eye. Pt has PICC line due to colon perf in May and has been on TPN since. fc 20:34 20:31 Pulse 62bpm; Resp 18bpm; Pulse Ox 100% RA; 80.29 kg Reported; Height 5 ft. 4 in. fc Reported; BMI: 30.3; Pain 5/10; fc 22:05 22:05 Reassessment: Patient and/or family updated on plan of care and expected ea duration. Pain level reassessed. Patient is alert, oriented x 3, equal unlabored respirations, skin warm/dry/pink. ea
--- NOTE | 2019-09-15 00:37 | EDPHYS ---
Physician Documentation [facility] Name: Jose G Perera Age: 38 yrs Sex: Male : 1980 Arrival Date: 09/14/2019 Time: 19:54 Bed 5 Private MD: ED Physician Nathan Bass HPI: 09/14 21:52 This 38 yrs old Male presents to ER via Ambulatory with complaints of L Eye snw Swelling -Redness. 21:52 Onset: The symptoms/episode began/occurred gradually, 3 day(s) ago, and became worse snw today, suddenly. Associated signs and symptoms: Pertinent positives: edema around right eye, green discharge, worsening since Sunday. Modifying factors: The patient symptoms are alleviated by nothing. The patient has not experienced similar symptoms in the past. The patient has been recently seen by a physician: with similar presenting complaints, and apparently given a diagnosis of conjunctivitis, using bacitracin ointment, s/s significantly worse since 1300. Historical: - Allergies: 20:30 BACLOFEN; fc 20:30 CEPHALOSPORINS; fc 20:30 Ciprofloxacin; fc 20:30 Demerol; fc 20:30 Dilaudid; fc 20:30 Levaquin; fc 20:30 Morphine; fc 20:30 Phenergan; fc - Home Meds: 20:30 TPN Electrolytes intravenous intravenous [Active]; Ambien 10 mg Oral tab nightly fc [Active]; citalopram 40 mg tab 1 tab once daily [Active]; Lyrica 150 mg Oral 1 cap 2 times per day [Active]; Uloric 40 mg Oral tab 1 tab once daily [Active]; pravastatin 40 mg oral tab 1 tab once daily [Active]; midirine 2.5 mg prn low bp [Active]; fludrocortisone 0.1 mg oral tab 1 tab once daily [Active]; Detrol LA 4 mg Oral cp24 1 cap once daily [Active]; Lamictal XR 100 mg oral tr24 1 tabs once daily [Active]; FML Liquifilm 0.1 % ophthalmic drps 1 drop 2 times per day [Active]; Xydra EF 53-1-9-5-707.5 mg oral cap twice a day [Active]; Vitamin D Oral 1,000 unit 2 am and 1 pm [Active]; - PMHx: 20:30 amyldosis; Anxiety; bradycardia, hypotension, hypertension; Diverticulitis; Gout; fc Hyperlipidemia; neuropathy; mutiple myeloma; seizure due to hypoxia; Pancreatitis; - PSHx: 20:30 Appendectomy; hypospadius surgery; pancreas surgery; Hernia repair; Bowel resection; fc eye surgery; Colon Perf.; - Immunization history:: Last tetanus immunization: up to date Flu vaccine is up to date. - Coronavirus screen:: The patient has NOT traveled to [place], [place], or [place] in the past 14 days. - Social history:: Smoking status: Patient denies any tobacco usage or history of. - Ebola Screening: : Patient negative for fever greater than or equal to 101.5 degrees Fahrenheit, and additional compatible Ebola Virus Disease symptoms Patient denies exposure to infectious person Patient denies travel to an Ebola-affected area in the 21 days before illness onset. ROS: 21:54 Constitutional: Negative for fever, chills, and weight loss, ENT: Negative for injury, snw pain, and discharge, Neck: Negative for injury, pain, and swelling, Cardiovascular: Negative for chest pain, palpitations, and edema, Respiratory: Negative for shortness of breath, cough, wheezing, and pleuritic chest pain, Abdomen/GI: Negative for abdominal pain, nausea, vomiting, diarrhea, and constipation, Back: Negative for injury and pain, : Negative for injury, bleeding, discharge, and swelling, MS/Extremity: Negative for injury and deformity, Skin: Negative for injury, rash, and discoloration, Neuro: Negative for headache, weakness, numbness, tingling, and seizure. 21:54 Eyes: Positive for discharge, matting, swelling, visual disturbance, of the outer aspect of conjuctiva of right eye, iris of right eye and inner aspect of conjuctiva of right eye. Exam: 21:45 Constitutional: This is a well developed, well nourished patient who is awake, alert, snw and in no acute distress. Head/Face: Normocephalic, atraumatic. ENT: Nares patent. No nasal discharge, no septal abnormalities noted. Tympanic membranes are normal and external auditory canals are clear. Oropharynx with no redness, swelling, or masses, exudates, or evidence of obstruction, uvula midline. Mucous membranes moist. Neck: Trachea midline, no thyromegaly or masses palpated, and no cervical lymphadenopathy. Supple, full range of motion without nuchal rigidity, or vertebral point tenderness. No Meningismus. Chest/axilla: Normal chest wall appearance and motion. Nontender with no deformity. No lesions are appreciated. Cardiovascular: Regular rate and rhythm with a normal S1 and S2. No gallops, murmurs, or rubs. Normal PMI, no JVD. No pulse deficits. Respiratory: Lungs have equal breath sounds bilaterally, clear to auscultation and percussion. No rales, rhonchi or wheezes noted. No increased work of breathing, no retractions or nasal flaring. 21:45 Back: No spinal tenderness. No costovertebral tenderness. Full range of motion. 21:45 Abdomen/GI: Inspection: abdomen appears normal, Bowel sounds: diminished, in all quadrants, Palpation: abdomen is soft and non-tender, in all quadrants. 21:45 Skin: Appearance: Color: pale, Temperature: normal temperature. Vital Signs: 20:31 BP 120 / 56; Pulse 62; Resp 18; Temp 98.3; Pulse Ox 100% on R/A; Weight 80.29 kg (R); fc Height 5 ft. 4 in. (162.56 cm) (R); Pain 5/10; 22:15 BP 140 / 67; Pulse 68; Resp 18; Pulse Ox 98% ; ea 23:02 BP 115 / 63; Pulse 62; Resp 18; Pulse Ox 100% ; ea 09/15 00:10 BP 109 / 56; Pulse 63; Resp 18; Pulse Ox 96% on R/A; ea 09/14 20:31 Body Mass Index 30.38 (80.29 kg, 162.56 cm) fc MDM: 09/14 20:43 Patient medically screened. snw 21:55 Data reviewed: vital signs, nurses notes. Data interpreted: Pulse oximetry: on room air snw is 100 %. Interpretation: normal. 09/14 20:48 Order name: CBC with Diff; Complete Time: 21:15 snw 09/14 20:48 Order name: Chem 7; Complete Time: 21:33 snw 09/14 20:48 Order name: Blood Culture Adult (2) snw 09/14 21:03 Order name: Eye Culture ea 09/14 21:40 Order name: Orbit W/Wo EDMS 09/14 20:48 Order name: Saline Lock; Complete Time: 21:01 snw Administered Medications: 21:43 Drug: NS 0.9% 1000 ml Route: IV; Rate: 250 ml/hr; Site: PIC; 09/15 00:47 Follow up: Response: No adverse reaction; IV Status: Completed infusion 09/14 23:32 Drug: Zosyn 3.375 grams Route: IVPB; Infused Over: 60 mins; Site: PICC; 09/15 00:47 Follow up: Response: No adverse reaction; IV Status: Completed infusion Disposition: 02:46 Co-signature as Attending Physician, Nathan Bass MD. rn Disposition: 09/15/19 00:36 Discharged to Home. Impression: Preseptal cellulitis, Chemosis, Conjunctivitis. - Condition is Stable. - Discharge Instructions: Bacterial Conjunctivitis, Hand Washing, Preseptal Cellulitis, Adult. - Prescriptions for Clindamycin Pediatric - take 2 Teaspoon by ORAL route 4 times per day for 10 days; 400 milliliter. Augmentin ES- 600 600-42.9 mg/5 mL Oral Suspension for Reconstitution - take 7.2 milliliter by ORAL route every 12 hours for 10 days Max = 875mg/dose; 150 milliliter. - Medication Reconciliation Form, Thank You Letter, Antibiotic Education, Prescription Opioid Use form. - Follow up: Emergency Department; When: As needed; Reason: Worsening of condition. Follow up: Private Physician; When: 1 - 2 days; Reason: Recheck today's complaints, Continuance of care, Re-evaluation by your physician. Signatures: Dispatcher [employer] [facility] Stephanie Graces, ADARSH-C NATURAL RESOURCES INSTRUCTOR-Csnw Jackelin Rawls, Nathan Powers RN, MD MD rn Antunez, Elena, RN RN ea Corrections: (The following items were deleted from the chart) 09/14 21:40 20:49 Head Brain W [id number] ordered. [facility] 09/15 00:49 00:36 09/15/2019 00:36 Discharged to Home. Impression: Preseptal cellulitis; Chemosis; ea Conjunctivitis. Condition is Stable. Discharge Instructions: Bacterial Conjunctivitis, Hand Washing, Preseptal Cellulitis, Adult. Prescriptions for Clindamycin Pediatric - take 2 Teaspoon by ORAL route 4 times per day for 10 days; 400 milliliter, Augmentin ES-600 600-42.9 mg/5 mL Oral Suspension for Reconstitution - take 7.2 milliliter by ORAL route every 12 hours for 10 days Max = 875mg/dose; 150 milliliter. and Forms are Medication Reconciliation Form, Thank You Letter, Antibiotic Education, Prescription Opioid Use. Follow up: Emergency Department; When: As needed; Reason: Worsening of condition. Follow up: Private Physician; When: 1 - 2 days; Reason: Recheck today's complaints, Continuance of care, Re-evaluation by your physician. snw
[2019-09-15 01:04] VITALS: TEMP 98.3
[2019-09-15 01:08] VITALS: BP 109/56; O2SAT 96
--- NOTE | 2019-09-15 12:29 | RAD REPORT ---
EXAM DESCRIPTION: CT - Orbit W/Wo - 09/14/2019 10:41 pm CLINICAL HISTORY: 38 years Male R/o orbital cellulitis TECHNIQUE: Contiguous axial images obtained through the orbits before and after IV contrast administ ration. Coronal and sagittal MIP images provided. This CT exam was performed according to our departmental dose-optimization program, which includes on e or more of the following dose reduction techniques: automated exposure control, adjustment of the m A and/or kV according to patient size, and/or use of iterative reconstruction technique. COMPARISON: No prior exams provided for comparison. FINDINGS: There is left periorbital, preseptal cellulitis without soft tissue gas or foreign body. T here is no post septal cellulitis in either orbit. The globes, lenses, optic nerves, and extraocular muscles appear normal bilaterally. There is no acute facial fracture. No temporomandibular joint dislocation. No aggressive osseous lesi on. Minimal bilateral ethmoid and mild right maxillary sinusitis. The remainder of the paranasal sinuses and left mastoid air cells are clear. There is opacification of a few lateral right mastoid air cells . The right middle ear structures are clear. IMPRESSION: Left periorbital, preseptal cellulitis. No post septal cellulitis in either orbit. Minimal bilateral ethmoid and right maxillary sinusitis. Opacification of a few lateral right mastoid air cells. No other acute findings. Electronically signed by: Megan Hernandez MD 09/14/2019 11:01 PM [employer] Due to temporary technical issues with the PACS/Fluency reporting system, reports are being signed by the in house radiologist as a courtesy to ensure prompt reporting. The interpreting radiologist is f ully responsible for the content of the report.
== END 2019-09-15 00:49 | disposition home or self-care (01) ==
LOC: ER 19:45
DX: L03.213 Periorbital cellulitis (principal); H11.421 Conjunctival edema, right eye; H10.9 Unspecified conjunctivitis; I10 Essential (primary) hypertension; E78.5 Hyperlipidemia, unspecified; F41.9 Anxiety disorder, unspecified; Z88.1 Allergy status to other antibiotic agents; Z88.3 Allergy status to other anti-infective agents; Z88.5 Allergy status to narcotic agent; Z88.8 Allergy status to other drugs, medicaments and biological substances
CPT/HCPCS: 96365; 96361; 87040 ×2; 87070; 85025; 80048; 36415; 70482; 99284; Q9967; J2543; J7030